=== PATIENT | female | born 2005 ===

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

== ENCOUNTER 2023-01-23 11:37 | Outpatient (AMB) | payer OTHER, SELFPAY ==
--- OUTSIDE RECORDS SUMMARY | 2023-01-23 11:38 | XMS_ITS | Continuity of Care Document ---
Author Name Unknown Organization [facility] Address [address] [place] [id number] Care Team Providers Care Tape Edge Machine Operator Name Role Phone Not on Staff, PCP Primary Care Physician Unavail able Encounter [facility] Date(s): 12/03/22 - 01/02/23 [facility] [address] [place] [id number]- Patient Care team information Care Team Personnel Name: Not on Staff, PCP Position: [facility] Physician (General Medicine) Member Role: PCP Care Team Related Persons Name: COOK FRANK MCGARRY Address: home [address] [place] [address]
[2023-01-23 11:45] VITALS: BP 104/62; BMI 26.6
--- NOTE | 2023-01-23 11:45 | A.OFFVISPN_ITS ---
Intake Vital Signs 01/23/23 11:45 Height 5 ft 3 in Weight 150 lb BMI 26.6 BP 104/62 Intake Visit Reasons: ROMMEL/ok per MA Intake Note: The patient agreed to use of a medical director of hospice during this encounter. Scribed for ROBERT Wilson by Sarah Odonnell medical director of hospice, on 01/23/2023 at 11:52 am EST. Modern Languages Professor Required: No Information Interpreted: non-clinical & clinical Corporate Law Assistant: Corporate Law Assistant Present (Val) Allergies penicillin V Allergy (Unknown, Verified 01/23/23 11:46) Hives Penicillins [PENICILLINS] Allergy (Unknown, Verified 01/23/23 11:46) ANAPHYLAXIS Is last menstrual period known: Yes Last menstrual period: 05/24/22 Post menopausal: No Patient : Yes PFSH Medical History COVID-19 Encounter for supervision of normal in third trimester Encounter for supervision of other normal in second trimester Surgical History No pertinent past surgical history Family History Mother No problems noted. Father No problems noted. 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 Current occupational exposures/hazards: No Female Reproductive History Menstrual Age of Menarche: 11 Duration of menses: 3-5 days Date of last menstrual period: 05/24/22 control method: none Total pregnancies: 1 History History 1 Elective abortions 0 Para 0 Spontaneous abortions 0 Hx # Term Pregnancies 0 Ectopic pregnancies 0 Hx # Pregnancies 0 Multiple births 0 Questionnaire History History : 1 [place] Depression [place] Depression Scale I have been able to laugh and see the funny side of things: As much as I always could I have looked forward with enjoyment to things: As much as I ever did I have blamed myself unnecessarily when things went wrong: Not very often I have been anxious or worried for no reason: Yes, very often I have felt scared of panicky for no very good reason at all: Yes, sometimes Things have been getting on top of me: No, most of the time I have coped quite well I have been so unhappy that I have had difficulty sleeping: Not very often I have felt sad or miserable: Not very often I have been so unhappy that I have been crying: No, never The thought of harming myself has occurred to me: Never 9 PHQ Assessment Billing PHQ Assessment Tool: PHQ Assessment [id number] Visit NAYELI Calculator Estimated Delivery Date Method Current WG Current Estimate 02/17/23 Ultrasound #1 36w 3d Other Estimates 02/07/23 LMP (Uncertain) 37w 6d 02/11/23 Ultrasound #2 37w 2d Expected Delivery Route/Plan Specific Issues/Plans G 1 P EDC: 02/17/23 Problem List: Teen . FH DM: H/o subchorionic bleed nausea-B6 and Unisom, counseled re: small freq. meals and fluid intake EPDS=11, no #11, 28wk=11 28w cbc- 10.9/32.7-rx iron Varicella non immune-consider pp vaccination. NT: nl First trimester screen: FAS: nl scan, marginal cord insertion. Plan: US 3rd trimester-growth follow up WIC: enrolled CBE:advised Vaccination status: COVID: 2 boosters Tdap: given 12/27/22 Flu: pt. informed/declined-pt. reports mom did not want her to have this Social hx: FOB-Pb. Lives with mom, and 4 siblings. 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 Labor support: FOB plan: control: OB Visit Log Initial Weight: Not Recorded Date -?-?-?-?-?-?-?-?-?-?-?-?- EGA Weight Gest Week Fundal Ht Present FHR move Efface % Edema BP PrePreg We Weight GTT -?-?-?-?-?-?-?-?-?-?-?-?- Glucose LV Protein Blood Type 07/26/22 -?-?-?-?-?-?-?-?-?-?-?-?- 10w 4d 127 lb 127 lb -?-?-?-?-?-?-?-?-?-?-?-?- 08/01/22 -?-?-?-?-?-?-?-?-?-?-?-?- 11w 3d 126 lb 11 160 active 92/58 126 lb -?-?-?-?-?--?-?-?-?-?-?-?- 08/23/22 -?-?-?-?-?-?-?-?-?-?-?-?- 14w 4d 125 lb 14 150 106/68 125 lb -?-?-?-?-?-?-?-?-?-?-?-?- 09/24/22 -?-?-?-?-?-?-?-?-?-?-?-?- 19w 1d 130 lb 19 150 active 98/54 130 lb -?-?-?-?-?-?-?-?-?-?-?-?- 10/29/22 -?-?-?-?-?-?-?-?-?-?-?-?- 24w 1d 137 lb 25 150 active 90/60 137 lb -?-?-?-?-?-?-?-?-?-?-?-?- 11/26/22 -?-?-?-?-?-?--?-?-?-?-?-?- 28w 1d 140 lb 26.5 150 active 100/ 54 140 lb -?-?-?-?-?-?-?-?-?-?-?-?- 12/12/22 -?-?-?-?-?-?-?-?-?-?-?-?- 30w 3d 141 lb 31 150 active 100/62 141 lb -?-?-?-?-?-?-?-?-?-?-?-?- 12/27/22 -?-?-?-?-?-?-?-?-?-?-?-?- 32w 4d 142 lb 31 140 active 104/68 142 lb -?-?-?-?-?-?-?-?-?-?-?-?- 01/23/23 -?-?-?-?-?-?-?-?-?-?-?-?- 36w 3d 150 lb 32 140 active 104/62 150 lb -?-?-?-?-?-?-?-?-?-?-?-?- Notes Visit Date: 01/23/23 Last Updated by: Ella Sagastume CNM Note author: Ella Sagastume CNM/Sarah Odonnell medical director of hospice 36.3 wk ROMMEL. Feeling well. Taking PNV. Hydrating well and good appetite Good FM, no LOF, VB or abd pain. Prepped at home for baby. Plans to breast feed. Not interested in an epidural. She prefers a natural , may consider something IV. Undecided re: BC pp, reviewed options today-will consider. Advised to pick a Pedi soon, options available. EPDS= 9, she has not seen a therapist, but has support at home. She prefers not to talk about things. Offered/encouraged referral for counseling- declines today. CRISIS information given. SFD, OB growth check at [facility]. GBS, GC/CT panel done today. cx appears LTC. Await results and treat accordingly. Discussed: PTL - LOF, VB, abd pain . Advised to eat small frequent meals and stay cool and hydrated. PEC - headaches: not resolved with 2 regular strength Tylenol doses, visual disturbances warnings and when to call for further evaluation. Reviewed when to call for any VB, LOF, contractions, Kick counts reviewed and when to call for any decreased FM. Encouraged patient to sign up for patient portal. Discussed to call the service here for any emergencies/deliveries to be directed to [facility]. RTO 1 wk/prn. Visit Date: 12/27/22 Last Updated by: Ella Sagastume CNM Note author: Ella Sagastume CNM/Sarah Odonnell medical director of hospice 32.4 wk ROMMEL. Feeling well. Taking PNV. Hydrating well and good appetite Good FM, no LOF, VB or abd pain. She is here with her partner Pb. Informed she started a new job at [employer]. Discussed: PTL - LOF, VB, abd pain . Tdap today Prepping at home for the baby. PEC - headaches: not resolved, visual disturbances warnings and when to call for further evaluation to check for pre-eclampsia. Reviewed when to call for any VB, LOF, contractions, Kick counts reviewed and when to call for any decreased FM. Discussed to call the service here for any emergencies/deliveries to be directed to [facility]. RTO 2 wks. Visit Date: 12/12/22 Last Updated by: Ella Sagastume CNM Note author: Ella Sagastume CNM/Sarah Odonnell medical director of hospice 30.3wk ROMMEL. Feeling well. Taking PNV. Hydrating well and good appetite Good FM, no LOF, VB or abd pain. Reports she has not been taking Iron pill because it was not making her feel well. Discussed: PTL - LOF, VB, abd pain . US measurements and diagnostics, repeat if indicated. Recommended taking PNV one hr. after food, then iron later separate timeframe. Advised to eat healthy including small frequent meals every 2 hrs and stay hydrated in hot weather. PEC - headaches: not resolved with 2 regular strength Tylenol doses, visual disturbances warnings and when to call for further evaluation. Reviewed when to call for any VB, LOF, contractions, Kick counts reviewed and when to call for any decreased FM. Encouraged patient to sign up for patient portal. Discussed to call the service here for any emergencies/deliveries to be directed to [facility]. Consider Tdap, defers until next visit. Handout given. RTO 2 wks Visit Date: 11/26/22 Last Updated by: Ella Sagastume CNM Note author: Ella Sagastume CNM/Sarah Odonnell medical director of hospice 28.1k ROMMEL. Feeling well. Taking PNV and iron. Hydrating well and good appetite Good FM, no LOF, VB or abd pain. Partner in for the visit today. Reports she is supposed to have a meeting with [facility] and her counselor sent an email recently, but missed her appt. time, she has decided to stay with delivery at [facility]. EPDS=11, no on #10, offered ref: for counseling, will possibly consider. Discussed: PTL - LOF, VB, abd pain Advised to eat healthy including small frequent meals every 2 hrs and stay hydrated in hot weather. Lab results; anemia. Varicella non immune- consider vaccine pp. US follow up for growth ordered. PEC - headaches: not resolved with 2 regular strength Tylenol doses, visual disturbances warnings and when to call for further evaluation. Reviewed when to call for any VB, LOF, contractions, Kick counts reviewed and when to call for any decreased FM. Encouraged patient to sign up for patient portal. Discussed to call the service here for any emergencies/deliveries to be directed to [facility]. Consider plans and control options. RTO 2 wks. Visit Date: 10/29/22 Last Updated by: Ella Sagastume CNM Note author: Ella Sagastume CNM/Sarah Odonnell medical director of hospice 24.1wk ROMMEL. Feeling well. Taking PNV. Good FM, no LOF, VB or abd pain. She is doing well with no complaints. She is interested in possibly transferring / care for more options such as a birthing center. She is agreeable to do labs soon. Discussed: PTL - LOF, VB, abd pain, regular contractions. Advised to research [facility] for home options. Encouraged patient to sign up for patient portal. PEC - headaches: not resolved with 2 regular strength Tylenol doses, visual disturbances warnings and when to call for further evaluation. Reviewed when to call for any VB, LOF, contractions, Kick counts reviewed and when to call for any decreased FM. Discussed to call the service here for any emergencies/deliveries to be directed to [facility]. Visit Date: 09/24/22 Last Updated by: Ella Sagastume CNM Note author: Ella Sagastume CNM/Sarah Odonnell medical director of hospice 19.1wk ROMMEL. Feeling well. Taking PNV. Good FM, no LOF, VB. No PN labs done, has transportation issues, mom helping with rides. Has WIC. Seen in the ED 09/20/22 for lightheadedness and feeling weak. Discussed: PTL - LOF, VB, abd pain, Advised to do labs today and schedule US. Concerned re: weight gain, low appetite at times. Track meal and food intake. Maintain healthy diet and stay hydrates with water. PEC - headaches: not resolved with 2 regular strength Tylenol doses, visual disturbances warnings and when to call for further evaluation. Discussed to call the service here for any emergencies/deliveries to be directed to [facility]. Reviewed when to call for any emergent care. RTO 4wks, FAS ordered Agree's to have labs done today. Visit Date: 08/23/22 Last Updated by: Ella Sagastume CNM Note author: Ella Sagastume CNM/Juany Dempsey medical director of hospice 14.4 wk ROMMEL. Taking PNV. Good FM. Denies LOF, VB or abd pain. Doing well with no concerns. Does not have a good appetite due to nausea. Has not picked up her Unisom and Vitamin B6. She stays well hydrated. She has done her First screen labs, records not available yet. Has not done first trimester labs. Her partner, Pb, and mom were present for FHR. Discussed: VB warnings and when to call for further evaluation. PEC - headaches: not resolved with 2 regular strength Tylenol doses, visual disturbances warnings and when to call for further evaluation.? Staying well hydrated, drink 8-10 glasses of water per day. Encouraged to picker / packer Unisom and Vitamin B6 to help prevent nausea. Agrees to do labs tomorrow. RTO in 4 weeks. Visit Date: 08/01/22 Last Updated by: Ella Sagastume CNM The patient agreed to use of a medical director of hospice during this encounter. Scribed for ROBERT Wilson by Sarah Odonnell medical director of hospice, on at 00:00 am EST. 11.3 wk OB. Taking PNV, BASA qd. Good FM. Denies LOF, VB or abd pain. Good appetite and stays well hydrated. States her nausea is off and on. Denies vaginal itching and irritation. Discussed: PTL-LOF, VB, abd pain, ctx and when to call for further evaluation. Advised to withhold from intimacy momentarily, report any VB B6 vits TID for nausea and Unisom prn Encouraged to contact office if she has any concerns about depression. Advised to obtain her PN labs this week Staying well hydrated, drink 8-10 glasses of water per day. She is agreeable to delivering at [facility]. Will have further discussion at next visit. 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 LMP was last week of April. US 06/25/22 at 6w1d with NAYELI 02/17/23. She had additional US 07/23/22 at 11w0d with NAYELI 02/11/23. She has h/o subchorionic bleed, nausea and fatigue. She was prescribed B6/Unisom but has not picked up from pharmacy yet. Pt has FH of diabetes and early glucose was added to her labs. Pt was advised no sweets or carbs beginning at 2000, night before she plans to have labs done and the same for her breakfast. Will schedule NT US and 1st trimester screen at [facility]. Pt has allergy to PCN. She had Covid 06/2021 and has been vaccinated x2, no boosters. Pt BMI today is 22.4. She does not know how much she weighed before he r and does not know if she has lost or gained weight. Pt was given the folder. We discussed danger signs, pelvic pain especially if unilateral and may be associated with shoulder pain and/or vaginal bleeding. She understands to call if she has either symptom. Pt was advised 24/7 MD coverage and how to reach MD after hours/weekends/holidays. She is aware that delivery will take place at [facility] as well as some testing and where she is to go. We reviewed first trimester education. Pt will schedule OB PE today, labs were ordered. Pt was accompanied by her Mom and her partner, Pb. Of note: we did not discuss domestic violence questions. Pt verbalizes understanding and agrees with plan. No further questions. Assessment & Plan Assessment & Plan (1) Encounter for supervision of normal in third trimester: Code(s): Z34.93 - Encounter for supervision of normal , unspecified, third trimester Category: Medical (2) Small for dates affecting management of mother: Code(s): O36.5990 - Maternal care for other known or suspected poor growth, unspecified trimester, not applicable or unspecified Orders: Orders CT NG by PCR Today Z34.93 - Encounter for supervision of normal , unspecified, third trimester Group B Strep PCR Today Z34.93 - Encounter for supervision of normal , unspecified, third trimester OB follow up Today O36.5296 - Maternal care for other known or suspected poor growth, unspecified trimester, not applicable or unspecified Coding Level of Care Code [place] Diagnoses Encounter for supervision of normal in third trimester Z34.93 Small for dates affecting management of mother O36.3278
== END 2023-01-23 12:14 | disposition home or self-care (01) ==
LOC: HO.HWSW 11:37
PROVIDERS: Visit Provider Advanced Practice Midwife
DX: O36.5990 Maternal care for other known or suspected poor fetal growth, unspecified trimester, not applicable or unspecified (principal)
CPT/HCPCS: 25942; S3005

== ENCOUNTER 2023-01-23 11:37 | Outpatient (REF) | payer OTHER, SELFPAY ==
[2023-01-23 17:59] LABS: CT PCR NOT DETECTED (Not Detect.); NG PCR NOT DETECTED (Not Detect.)
[2023-01-24 10:35] LABS: Allergic to Penicillin? Yes
== END 2023-01-23 11:38 | disposition home or self-care (01) ==
LOC: HO.LNP 11:37
PROVIDERS: Visit Provider Advanced Practice Midwife
DX: O36.5930 Maternal care for other known or suspected poor fetal growth, third trimester, not applicable or unspecified (principal); Z3A.36 36 weeks gestation of pregnancy
CPT/HCPCS: 0353U; 87150; 99212

== ENCOUNTER 2023-01-30 13:16 | Outpatient (AMB) | payer OTHER, SELFPAY ==
--- NOTE | 2023-01-30 13:20 | A.OFFVISPN_ITS ---
Intake Vital Signs 01/30/23 13:21 Height 5 ft 3 in Weight 149 lb BMI 26.4 BP 110/60 Intake Visit Reasons: ROMMEL Intake Note: The patient agreed to use of a medical office secretary during this encounter. Scribed for ROBERT Wilson by Sarah Odonnell medical office secretary, on 01/30/2023 at 1:28 pm EST. Accompanied by: Spouse Allergies penicillin V Allergy (Unknown, Verified 01/30/23 13:20) Hives Penicillins [PENICILLINS] Allergy (Unknown, Verified 01/30/23 13:20) ANAPHYLAXIS Patient : Yes [facility] Medical History (Updated 01/30/23 @ 13:59 by Ella Sagastume CNM) COVID-19 Encounter for supervision of normal in third trimester Surgical History No pertinent past surgical history Family History Mother No problems noted. Father No problems noted. 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 FH DM: H/o subchorionic bleed nausea-B6 and Unisom, counseled re: small freq. meals and fluid intake EPDS=11, no #11, 28wk=11 28w cbc- 10.9/32.7-rx iron Varicella non immune-consider pp vaccination. NT: nl First trimester screen: FAS: nl scan, marginal cord insertion. Plan: US 3rd trimester-growth follow up WIC: enrolled CBE:advised Vaccination status: COVID: 2 boosters Tdap: given 12/27/22 Flu: pt. informed/declined-pt. reports mom did not want her to have this Social hx: FOB-Pb. Lives with mom, and 4 siblings. 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 Labor support: FOB plan: control: Note author: Ella Sagastume CNM/Sarah salazar scribe RTO in a week. OB Visit Log Initial Weight: 120 lb Date -?-?-?-?-?-?-?-?-?-?-?-?- EGA Weight Gest Week Fundal Ht Present FHR move Efface % Edema BP PrePreg We Weight GTT -?-?-?-?-?-?-?-?-?-?-?-?- Glucose LV Protein Blood Type 07/26/22 -?-?-?-?-?-?-?-?-?-?-?-?- 10w 4d 127 lb (+7 lb) 127 lb -?-?-?-?-?-?-?-?-?-?-?-?- 08/01/22 -?-?-?-?-?-?-?-?-?-?-?-?- 11w 3d 126 lb (+6 lb) 11 160 active 92/58 126 lb -?-?-?-?-?-?-?-?-?-?-?-?- 08/23/22 -?-?-?-?-?-?-?-?-?-?-?-?- 14w 4d 125 lb (+5 lb) 14 150 106/68 125 lb -?-?-?-?-?-?-?-?-?-?-?-?- 09/24/22 -?-?-?-?-?-?-?-?-?-?-?-?- 19w 1d 130 lb (+10 lb) 19 150 active 98/54 1 30 lb -?-?-?-?-?-?-?-?-?-?-?-?- 10/29/22 -?-?-?-?-?-?-?-?-?-?-?-?- 24w 1d 137 lb (+17 lb) 25 150 active 90/60 1 37 lb -?-?-?-?-?-?-?-?-?-?-?-?- 11/26/22 -?-?-?-?-?-?-?-?-?-?-?-?- 28w 1d 140 lb (+20 lb) 26.5 150 active 100/54 140 lb -?-?-?-?-?-?-?-?-?-?-?-?- 12/12/22 -?-?-?-?-?-?-?-?-?-?-?-?- 30w 3d 141 lb (+21 lb) 31 150 active 100/62 141 lb -?-?-?-?-?-?-?-?-?-?-?-?- 12/27/22 -?-?-?-?-?-?-?-?-?-?-?-?- 32w 4d 142 lb (+22 lb) 31 140 active 104/68 142 lb -?-?-?-?-?-?-?-?-?-?-?-?- 01/23/23 -?-?-?-?-?-?-?-?-?-?-?-?- 36w 3d 150 lb (+30 lb) 32 140 active 104/62 150 lb -?-?-?-?-?-?-?-?-?-?-?-?- 01/30/23 -?-?-?-?-?-?-?-?-?-?-?-?- 37w 3d 149 lb (+29 lb) 32 140 active 110/60 149 lb -?-?-?-?-?-?-?-?-?-?-?-?- Notes Visit Date: 01/30/23 Last Updated by: Ella Sagastume CNM 37.3 wk ROMMEL. Feeling well. Taking PNV. Hydrating well and good appetite Good FM, no LOF, VB or abd pain. Partner is present during visit. US for growth check not booked yet, plan staff to call and check on the status of appt. Reports having [place] Fernandez. Discussed: PTL - LOF, VB, abd pain . GBS- Negative-chart copy sent to [facility] today. Informed Pawel Fernandez symptoms. If delivers baby, contact office to schedule PPV. Advised to eat small frequent meals and stay cool and hydrated. PEC - headaches: not resolved with 2 regular strength Tylenol doses, visual disturbances warnings and when to call for further evaluation. Reviewed when to call for any VB, LOF, contractions, Kick counts reviewed and when to call for any decreased FM. Encouraged patient to sign up for patient portal. Discussed to call the service here for any emergencies/deliveries to be directed to [facility]. Visit Date: 01/23/23 Last Updated by: Ella Sagastume CNM Note author: Ella Sagastume CNM/Sarah Odonnell medical office secretary 36.3 wk ROMMEL. Feeling well. Taking PNV. Hydrating well and good appetite Good FM, no LOF, VB or abd pain. Prepped at home for baby. Plans to breast feed. Not interested in an epidural. She prefers a natural , may consider something IV. Undecided re: BC pp, reviewed options today-will consider. Advised to pick a Pedi soon, options available. EPDS= 9, she has not seen a therapist, but has support at home. She prefers not to talk about things. Offered/encouraged referral for counseling- declines today. CRISIS information given. SFD, OB growth check at [facility]. GBS, GC/CT panel done today. cx appears LTC. Await results and treat accordingly. Discussed: PTL - LOF, VB, abd pain . Advised to eat small frequent meals and stay cool and hydrated. PEC - headaches: not resolved with 2 regular strength Tylenol doses, visual disturbances warnings and when to call for further evaluation. Reviewed when to call for any VB, LOF, contractions, Kick counts reviewed and when to call for any decreased FM. Encouraged patient to sign up for patient portal. Discussed to call the service here for any emergencies/deliveries to be directed to [facility]. RTO 1 wk/prn. Visit Date: 12/27/22 Last Updated by: Ella Sagastume CNM Note author: Ella Sagastume CNM/Sarah Odonnell medical office secretary 32.4 wk ROMMEL. Feeling well. Taking PNV. Hydrating well and good appetite Good FM, no LOF, VB or abd pain. She is here with her partner Pb. Informed she started a new job at [employer]. Discussed: PTL - LOF, VB, abd pain . Tdap today Prepping at home for the baby. PEC - headaches: not resolved, visual disturbances warnings and when to call for further evaluation to check for pre-eclampsia. Reviewed when to call for any VB, LOF, contractions, Kick counts reviewed and when to call for any decreased FM. Discussed to call the service here for any emergencies/deliveries to be directed to [facility]. RTO 2 wks. Visit Date: 12/12/22 Last Updated by: Ella Sagastume CNM Note author: Ella Sagastume CNM/Sarah Odonnell medical office secretary 30.3wk ROMMEL. Feeling well. Taking PNV. Hydrating well and good appetite Good FM, no LOF, VB or abd pain. Reports she has not been taking Iron pill because it was not making her feel well. Discussed: PTL - LOF, VB, abd pain . US measurements and diagnostics, repeat if indicated. Recommended taking PNV one hr. after food, then iron later separate timeframe. Advised to eat healthy including small frequent meals every 2 hrs and stay hydrated in hot weather. PEC - headaches: not resolved with 2 regular strength Tylenol doses, visual disturbances warnings and when to call for further evaluation. Reviewed when to call for any VB, LOF, contractions, Kick counts reviewed and when to call for any decreased FM. Encouraged patient to sign up for patient portal. Discussed to call the service here for any emergencies/deliveries to be directed to [facility]. Consider Tdap, defers until next visit. Handout given. RTO 2 wks Visit Date: 11/26/22 Last Updated by: Ella Sagastume CNM Note author: Ella Sagastume CNM/Sarah Odonnell medical office secretary 28.1k ROMMEL. Feeling well. Taking PNV and iron. Hydrating well and good appetite Good FM, no LOF, VB or abd pain. Partner in for the visit today. Reports she is supposed to have a meeting with [facility] and her counselor sent an email recently, but missed her appt. time, she has decided to stay with delivery at [facility]. EPDS=11, no on #10, offered ref: for counseling, will possibly consider. Discussed: PTL - LOF, VB, abd pain Advised to eat healthy including small frequent meals every 2 hrs and stay hydrated in hot weather. Lab results; anemia. Varicella non immune- consider vaccine pp. US follow up for growth ordered. PEC - headaches: not resolved with 2 regular strength Tylenol doses, visual disturbances warnings and when to call for further evaluation. Reviewed when to call for any VB, LOF, contractions, Kick counts reviewed and when to call for any decreased FM. Encouraged patient to sign up for patient portal. Discussed to call the service here for any emergencies/deliveries to be directed to [facility]. Consider plans and control options. RTO 2 wks. Visit Date: 10/29/22 Last Updated by: Ella Sagastume CNM Note author: Ella Sagastume CNM/Sarah Odonnell medical office secretary 24.1wk ROMMEL. Feeling well. Taking PNV. Good FM, no LOF, VB or abd pain. She is doing well with no complaints. She is interested in possibly transferring / care for more options such as a birthing center. She is agreeable to do labs soon. Discussed: PTL - LOF, VB, abd pain, regular contractions. Advised to research [facility] for home options. Encouraged patient to sign up for patient portal. PEC - headaches: not resolved with 2 regular strength Tylenol doses, visual disturbances warnings and when to call for further evaluation. Reviewed when to call for any VB, LOF, contractions, Kick counts reviewed and when to call for any decreased FM. Discussed to call the service here for any emergencies/deliveries to be directed to [facility]. Visit Date: 09/24/22 Last Updated by: Ella Sagastume CNM Note author: Ella Sagastume CNM/Sarah Odonnell medical office secretary 19.1wk ROMMEL. Feeling well. Taking PNV. Good FM, no LOF, VB. No PN labs done, has transportation issues, mom helping with rides. Has WIC. Seen in the ED 09/20/22 for lightheadedness and feeling weak. Discussed: PTL - LOF, VB, abd pain, Advised to do labs today and schedule US. Concerned re: weight gain, low appetite at times. Track meal and food intake. Maintain healthy diet and stay hydrates with water. PEC - headaches: not resolved with 2 regular strength Tylenol doses, visual disturbances warnings and when to call for further evaluation. Discussed to call the service here for any emergencies/deliveries to be directed to [facility]. Reviewed when to call for any emergent care. RTO 4wks, FAS ordered Agree's to have labs done today. Visit Date: 08/23/22 Last Updated by: Ella Sagastume CNM Note author: Ella Sagastume CNM/Juany Dempsey medical office secretary 14.4 wk ROMMEL. Taking PNV. Good FM. Denies LOF, VB or abd pain. Doing well with no concerns. Does not have a good appetite due to nausea. Has not picked up her Unisom and Vitamin B6. She stays well hydrated. She has done her First screen labs, records not available yet. Has not done first trimester labs. Her partner, Pb, and mom were present for FHR. Discussed: VB warnings and when to call for further evaluation. PEC - headaches: not resolved with 2 regular strength Tylenol doses, visual disturbances warnings and when to call for further evaluation.? Staying well hydrated, drink 8-10 glasses of water per day. 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 Agrees to do labs tomorrow. RTO in 4 weeks. Visit Date: 08/01/22 Last Updated by: Ella Sagastume CNM The patient agreed to use of a medical office secretary during this encounter. Scribed for ROBERT Wilson by Sarah Odonnell medical office secretary, on at 00:00 am EST. 11.3 wk OB. Taking PNV, BASA qd. Good FM. Denies LOF, VB or abd pain. Good appetite and stays well hydrated. States her nausea is off and on. Denies vaginal itching and irritation. Discussed: PTL-LOF, VB, abd pain, ctx and when to call for further evaluation. Advised to withhold from intimacy momentarily, report any VB B6 vits TID for nausea and Unisom prn Encouraged to contact office if she has any concerns about depression. Advised to obtain her PN labs this week Staying well hydrated, drink 8-10 glasses of water per day. She is agreeable to delivering at [facility]. Will have further discussion at next visit. 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 LMP was last week of April. US 06/25/22 at 6w1d with NAYELI 02/17/23. She had additional US 07/23/22 at 11w0d with NAYELI 02/11/23. She has h/o subchorionic bleed, nausea and fatigue. She was prescribed B6/Unisom but has not picked up from pharmacy yet. Pt has FH of diabetes and early glucose was added to her labs. Pt was advised no sweets or carbs beginning at 1999, night before she plans to have labs done and the same for her breakfast. Will schedule NT US and 1st trimester screen at [facility]. Pt has allergy to PCN. She had Covid 06/2021 and has been vaccinated x2, no boosters. Pt BMI today is 22.4. She does not know how much she weighed before her and does not know if she has lost or gained weight. Pt was given the folder. We discussed danger signs, pelvic pain especially if unilateral and may be associated with shoulder pain and/or vaginal bleeding. She understands to call if she has either symptom. Pt was advised 24/7 MD coverage and how to reach MD after hours/weekends/holidays. She is aware that delivery will take place at [facility] as well as some testing and where she is to go. We reviewed first trimester education. Pt will schedule OB PE today, labs were ordered. Pt was accompanied by her Mom and her partner, Pb. Of note: we did not discuss domestic violence questions. Pt verbalizes understanding and agrees with plan. No further questions. Results AMB Urinalysis, Automated UA Leukoctes 1 Husam/uL Last Edit by Vanessa Yanes [facility] on 01/30/23 13:52 UA Nitrite Negative Last Edit by Vanessa Yanes [facility] on 01/30/23 13:52 UA Urobilinogen 0 mg/dL Last Edit by Vanessa Yanes [facility] on 01/30/23 13:5 2 UA Protein 0 mg/dL Last Edit by Vanessa Yanes [facility] on 01/30/23 13:52 UA pH 6.5 Last Edit by Vanessa Yanes [facility] on 01/30/23 13:52 UA Blood 0 George/uL Last Edit by Vanessa Yanes [facility] on 01/30/23 13:52 UA Specific [place] 1.010 Last Edit by Vanessa Yanes [facility] on 01/30/23 13:52 UA Ketone Negative Last Edit by Vanessa Yanes [facility] on 01/30/23 13:52 UA Bilirubin 0 mg/dL Last Edit by Vanessa Yanes [facility] on 01/30/23 13:52 UA Glucose 0 mg/dL Last Edit by Vanessa Yanes [facility] on 01/30/23 13:52 Results Reviewed Results Reviewed: Laboratory Last Values Urine pH (Auto) 6.5 01/30/23 13:50 Specific [place] (Auto) 1.010 01/30/23 13:50 Urine Protein (Auto) 0 mg/dL 01/30/23 13:50 Glucose (UA)(Auto) 0 mg/dL 01/30/23 13:50 Urine Ketones (Auto) Negative 01/30/23 13:50 Urine Blood (Auto) 0 George/uL 01/30/23 13:50 Urine Nitrite (Auto) Negative 01/30/23 13:50 Urine Bilirubin (Auto) 0 mg/dL 01/30/23 13:50 Urine Urobilinogen (Auto) 0 mg/dL 01/30/23 13:50 Leukocyte Esterase (Auto) 1 Husam/uL 01/30/23 13:50 Assessment & Plan Assessment & Plan (1) Encounter for supervision of normal in third trimester: Code(s): Z34.93 - Encounter for supervision of normal , unspecified, third trimester Category: Medical Orders: Orders AMB Urinalysis Automated Today Z34.93 - Encounter for supervision of normal , unspecified, third trimester Coding Level of Care Code [place] Diagnoses Encounter for supervision of normal in third trimester Z34.93
[2023-01-30 13:21] VITALS: BP 110/60; BMI 26.4
== END 2023-01-30 13:47 | disposition home or self-care (01) ==
LOC: HO.HWS 13:16
PROVIDERS: Visit Provider Advanced Practice Midwife
DX: Z34.93 Encounter for supervision of normal pregnancy, unspecified, third trimester (principal)
CPT/HCPCS: 25942

== ENCOUNTER → 2023-01-30 13:16 | Outpatient (BNVA) | payer OTHER, SELFPAY | PROVIDERS: Visit Provider Advanced Practice Midwife | DX: O21.0 Mild hyperemesis gravidarum (principal); O47.1 False labor at or after 37 completed weeks of gestation; O45.8X3 Other premature separation of placenta, third trimester; Z3A.37 37 weeks gestation of pregnancy | CPT/HCPCS: 81003; 99212 ==

== ENCOUNTER 2023-02-05 13:58 | Outpatient (AMB) | payer OTHER, SELFPAY ==
[2023-02-05 14:18] VITALS: BP 100/64; BMI 26.4
--- NOTE | 2023-02-05 14:18 | A.OFFVISPN_ITS ---
Intake Vital Signs 02/05/23 14:18 Height 5 ft 3 in Weight 149 lb BMI 26.4 BP 100/64 Intake Visit Reasons: ROMMEL Intake Note: The patient agreed to use of a medical secretary receptionist during this encounter. Scribed for ROBERT Wilson by Sarah Odonnell medical secretary receptionist, on 02/05/2023 at 2:49 pm EST. Allergies penicillin V Allergy (Unknown, Verified 02/05/23 14:23) Hives Penicillins [PENICILLINS] Allergy (Unknown, Verified 02/05/23 14:23) ANAPHYLAXIS Patient : Yes [facility] Medical History (Updated 01/30/23 @ 13:59 by Ella Sagastume CNM) COVID-19 Encounter for supervision of normal in third trimester Surgical History No pertinent past surgical history Family History Mother No problems noted. Father No problems noted. 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 FH DM: H/o subchorionic bleed nausea-B6 and Unisom, counseled re: small freq. meals and fluid intake EPDS=11, no #11, 28wk=11 28w cbc- 10.9/32.7-rx iron Varicella non immune-consider pp vaccination. NT: nl First trimester screen: FAS: nl scan, marginal cord insertion. 3rd trimester US 20% growth, repeat study on 02/10/23... WIC: enrolled CBE:advised Vaccination status: COVID: 2 boosters Tdap: given 12/27/22 Flu: pt. informed/declined-pt. reports mom did not want her to have this Social hx: FOB-Pb. Lives with mom, and 4 siblings. 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 Labor support: FOB plan: control: OB Visit Log Initial Weight: 120 lb Date -?-?-?-?-?-?-?-?-?-?-?-?- EGA Weight Gest Week Fundal Ht Present FHR move Efface % Edema BP PrePreg We Weight GTT -?-?-?-?-?-?-?-?-?-?-?-?- Glucose LV Protein Blood Type 07/26/22 -?-?-?-?-?-?-?-?-?-?--?-?- 10w 4d 127 lb (+7 lb) 127 lb -?-?-?-?-?-?-?-?-?-?-?-?- 08/01/22 -?-?-?-?-?-?-?-?-?-?-?-?- 11w 3d 126 lb (+6 lb) 11 160 active 92/58 126 lb -?-?-?-?-?-?-?-?-?-?-?-?- 08/23/22 -?-?-?-?-?-?-?-?-?-?-?--?- 14w 4d 125 lb (+5 lb) 14 150 106/68 125 lb -?-?-?-?-?-?-?-?-?-?-?-?- 09/24/22 -?-?-?-?-?-?-?--?-?-?-?-?- 19w 1d 130 lb (+10 lb) 19 150 active 98/54 1 30 lb -?-?-?-?-?-?-?-?-?-?-?-?- 10/29/22 -?-?-?-?-?-?-?-?-?-?-?-?- 24w 1d 137 lb (+17 lb) 25 150 active 90/60 1 37 lb -?-?-?-?-?-?-?-?-?-?-?-?- 11/26/22 -?-?-?-?-?-?-?-?-?-?-?-?- 28w 1d 140 lb (+20 lb) 26.5 150 active 100/54 140 lb -?-?-?-?-?-?-?-?-?-?--?-?- 12/12/22 -?-?-?-?-?-?-?-?-?-?-?-?- 30w 3d 141 lb (+21 lb) 31 150 active 100/62 141 lb -?-?-?-?-?-?-?-?-?-?-?-?- 12/27/22 -?-?-?-?-?-?-?-?-?-?-?-?- 32w 4d 142 lb (+22 lb) 31 140 active 104/68 142 lb -?-?-?-?-?-?-?-?-?-?-?-?- 01/23/23 -?-?-?-?-?-?-?-?-?-?-?-?- 36w 3d 150 lb (+30 lb) 32 140 active 104/62 150 lb -?-?-?-?-?-?-?-?-?-?-?-?- 01/30/23 -?-?-?-?-?-?-?-?-?-?-?-?- 37w 3d 149 lb (+29 lb) 32 140 active 110/60 149 lb -?-?-?-?-?-?-?-?-?-?-?-?- 02/05/23 -?-?-?-?-?-?-?-?-?-?-?-?- 38w 2d 149 lb (+29 lb) 34 140 active 100/64 149 lb -?-?-?-?-?-?-?-?-?-?-?-?- Notes Visit Date: 02/05/23 Last Updated by: Ella Sagastume CNM Note author: Ella Sagastume CNM/Sarah Blas medical secretary receptionist 38.2 wk ROMMEL. Feeling well. Taking PNV. Hydrating well and good appetite Good FM, no LOF, VB or abd pain. She is here today with her Partner She has no concerns or complaints. Prepped for baby, dscussed packing for the hospital. Discussed: PTL - LOF, VB, abd pain . Advised to eat small frequent meals and stay cool and hydrated. PEC - headaches: not resolved with 2 regular strength Tylenol doses, visual disturbances warnings and when to call for further evaluation. Reviewed when to call for any VB, LOF, contractions, Kick counts reviewed and when to call for any decreased FM. Encouraged patient to sign up for patient portal. Discussed to call the service here for any emergencies/deliveries to be directed to [facility]. US is booked 02/10/23 for growth check. RTO in 1 week. Visit Date: 01/30/23 Last Updated by: Ella Sagastume CNM 37.3 wk ROMMEL. Feeling well. Taking PNV. Hydrating well and good appetite Good FM, no LOF, VB or abd pain. Partner is present during visit. US for growth check not booked yet, plan staff to call and check on the status of appt. Reports having [place] Fern[place]. Discussed: PTL - LOF, VB, abd pain . GBS- Negative-chart copy sent to [facility] today. Informed Pawel Fernandez symptoms. If delivers baby, contact office to schedule PPV. Advised to eat small frequent meals and stay cool and hydrated. PEC - headaches: not resolved with 2 regular strength Tylenol doses, visual disturbances warnings and when to call for further evaluation. Reviewed when to call for any VB, LOF, contractions, Kick counts reviewed and when to call for any decreased FM. Encouraged patient to sign up for patient portal. Discussed to call the service here for any emergencies/deliveries to be directed to [facility]. Visit Date: 01/23/23 Last Updated by: Ella Sagastume CNM Note author: Ella Sagastume CNM/Sarah Odonnell medical secretary receptionist 36.3 wk ROMMEL. Feeling well. Taking PNV. Hydrating well and good appetite Good FM, no LOF, VB or abd pain. Prepped at home for baby. Plans to breast feed. Not interested in an epidural. She prefers a natural , may consider something IV. Undecided re: BC pp, reviewed options today-will consider. Advised to pick a Pedi soon, options available. EPDS= 9, she has not seen a therapist, but has support at home. She prefers not to talk about things. Offered/encouraged referral for counseling- declines today. CRISIS information given. SFD, OB growth check at [facility]. GBS, GC/CT panel done today. cx appears LTC. Await results and treat accordingly. Discussed: PTL - LOF, VB, abd pain . Advised to eat small frequent meals and stay cool and hydrated. PEC - headaches: not resolved with 2 regular strength Tylenol doses, visual disturbances warnings and when to call for further evaluation. Reviewed when to call for any VB, LOF, contractions, Kick counts reviewed and when to call for any decreased FM. Encouraged patient to sign up for patient portal. Discussed to call the service here for any emergencies/deliveries to be directed to [facility]. RTO 1 wk/prn. Visit Date: 12/27/22 Last Updated by: Ella Sagastume CNM Note author: Ella Sagastume CNM/Sarah Odonnell medical secretary receptionist 32.4 wk ROMMEL. Feeling well. Taking PNV. Hydrating well and good appetite Good FM, no LOF, VB or abd pain. She is here with her partner Pb. Informed she started a new job at [employer]. Discussed: PTL - LOF, VB, abd pain . Tdap today Prepping at home for the baby. PEC - headaches: not resolved, visual disturbances warnings and when to call for further evaluation to check for pre-eclampsia. Reviewed when to call for any VB, LOF, contractions, Kick counts reviewed and when to call for any decreased FM. Discussed to call the service here for any emergencies/deliveries to be directed to [facility]. RTO 2 wks. Visit Date: 12/12/22 Last Updated by: Ella Sagastume CNM Note author: Ella Sagastume CNM/Sarah Odonnell medical secretary receptionist 30.3wk ROMMEL. Feeling well. Taking PNV. Hydrating well and good appetite Good FM, no LOF, VB or abd pain. Reports she has not been taking Iron pill because it was not making her feel well. Discussed: PTL - LOF, VB, abd pain . US measurements and diagnostics, repeat if indicated. Recommended taking PNV one hr. after food, then iron later separate timeframe. Advised to eat healthy including small frequent meals every 2 hrs and stay hydrated in hot weather. PEC - headaches: not resolved with 2 regular strength Tylenol doses, visual disturbances warnings and when to call for further evaluation. Reviewed when to call for any VB, LOF, contractions, Kick counts reviewed and when to call for any decreased FM. Encouraged patient to sign up for patient portal. Discussed to call the service here for any emergencies/deliveries to be directed to [facility]. Consider Tdap, defers until next visit. Handout given. RTO 2 wks Visit Date: 11/26/22 Last Updated by: Ella Sagastume CNM Note author: Ella Sagastume CNM/Sarah Odonnell medical secretary receptionist 28.1k ROMMEL. Feeling well. Taking PNV and iron. Hydrating well and good appetite Good FM, no LOF, VB or abd pain. Partner in for the visit today. Reports she is supposed to have a meeting with [facility] and her counselor sent an email recently, but missed her appt. time, she has decided to stay with delivery at [facility]. EPDS=11, no on #10, offered ref: for counseling, will possibly consider. Discussed: PTL - LOF, VB, abd pain Advised to eat healthy including small frequent meals every 2 hrs and stay hydrated in hot weather. Lab results; anemia. Varicella non immune- consider vaccine pp. US follow up for growth ordered. PEC - headaches: not resolved with 2 regular strength Tylenol doses, visual disturbances warnings and when to call for further evaluation. Reviewed when to call for any VB, LOF, contractions, Kick counts reviewed and when to call for any decreased FM. Encouraged patient to sign up for patient portal. Discussed to call the service here for any emergencies/deliveries to be directed to [facility]. Consider plans and control options. RTO 2 wks. Visit Date: 10/29/22 Last Updated by: Ella Sagastume CNM Note author: Ella Sagastume CNM/Sarah Odonnell medical secretary receptionist 24.1wk ROMMEL. Feeling well. Taking PNV. Good FM, no LOF, VB or abd pain. She is doing well with no complaints. She is interested in possibly transferring / care for more options such as a birthing center. She is agreeable to do labs soon. Discussed: PTL - LOF, VB, abd pain, regular contractions. Advised to research [facility] for home options. Encouraged patient to sign up for patient portal. PEC - headaches: not resolved with 2 regular strength Tylenol doses, visual disturbances warnings and when to call for further evaluation. Reviewed when to call for any VB, LOF, contractions, Kick counts reviewed and when to call for any decreased FM. Discussed to call the service here for any emergencies/deliveries to be directed to [facility]. Visit Date: 09/24/22 Last Updated by: Ella Sagastume CNM Note author: Ella Sagastume CNM/Sarah Odonnell medical secretary receptionist 19.1wk ROMMEL. Feeling well. Taking PNV. Good FM, no LOF, VB. No PN labs done, has transportation issues, mom helping with rides. Has WIC. Seen in the ED 09/20/22 for lightheadedness and feeling weak. Discussed: PTL - LOF, VB, abd pain, Advised to do labs today and schedule US. Concerned re: weight gain, low appetite at times. Track meal and food intake. Maintain healthy diet and stay hydrates with water. PEC - headaches: not resolved with 2 regular strength Tylenol doses, visual disturbances warnings and when to call for further evaluation. Discussed to call the service here for any emergencies/deliveries to be directed to [facility]. Reviewed when to call for any emergent care. RTO 4wks, FAS ordered Agree's to have labs done today. Visit Date: 08/23/22 Last Updated by: Ella Sagastume CNM Note author: Ella Sagastume CNM/Juany Dempsey medical secretary receptionist 14.4 wk ROMMEL. Taking PNV. Good FM. Denies LOF, VB or abd pain. Doing well with no concerns. Does not have a good appetite due to nausea. Has not picked up her Unisom and Vitamin B6. She stays well hydrated. She has done her First screen labs, records not available yet. Has not done first trimester labs. Her partner, Pb, and mom were present for FHR. Discussed: VB warnings and when to call for further evaluation. PEC - headaches: not resolved with 2 regular strength Tylenol doses, visual disturbances warnings and when to call for further evaluation.? Staying well hydrated, drink 8-10 glasses of water per day. Encouraged to picking crew supervisor Unisom and Vitamin B6 to help prevent nausea. Agrees to do labs tomorrow. RTO in 4 weeks. Visit Date: 08/01/22 Last Updated by: Ella Sagastume CNM The patient agreed to use of a medical secretary receptionist during this encounter. Scribed for ROBERT Wilson by Sarah Odonnell medical secretary receptionist, on at 00:00 am EST. 11.3 wk OB. Taking PNV, BASA qd. Good FM. Denies LOF, VB or abd pain. Good appetite and stays well hydrated. States her nausea is off and on. Denies vaginal itching and irritation. Discussed: PTL-LOF, VB, abd pain, ctx and when to call for further evaluation. Advised to withhold from intimacy momentarily, report any VB B6 vits TID for nausea and Unisom prn Encouraged to contact office if she has any concerns about depression. Advised to obtain her PN labs this week Staying well hydrated, drink 8-10 glasses of water per day. She is agreeable to delivering at [facility]. Will have further discussion at next visit. RTO 4wks Visit Date: 07/26/22 Last Updated by: Leatha Zamarripahector Davies is 17 yo here for her heel sander. LMP was last week of April. US 06/25/22 at 6w1d with NAYELI 02/17/23. She had additional US 07/23/22 at 11w0d with NAYELI 02/11/23. She has h/o subchorionic bleed, nausea and fatigue. She was prescribed B6/Unisom but has not picked up from pharmacy yet. Pt has FH of diabetes and early glucose was added to her labs. Pt was advised no sweets or carbs beginning at 2000, night before she plans to have labs done and the same for her breakfast. Will schedule NT US and 1st trimester screen at [facility]. Pt has allergy to PCN. She had Covid 06/2021 and has been vaccinated x2, no boosters. Pt BMI today is 22.4. She does not know how much she weighed before her and does not know if she has lost or gained weight. Pt was given the folder. We discussed danger signs, pelvic pain especially if unilateral and may be associated with shoulder pain and/or vaginal bleeding. She understands to call if she has either symptom. Pt was advised 24/ MD coverage and how to reach MD after hours/weekends/holidays. She is aware that delivery will take place at [facility] as well as some testing and where she is to go. We reviewed first trimester education. Pt will schedule OB PE today, labs were ordered. Pt was accompanied by her Mom and her partner, Pb. Of note: we did not discuss domestic violence questions. Pt verbalizes understanding and agrees with plan. No further questions. Assessment & Plan Assessment & Plan (1) Encounter for supervision of normal in third trimester: Code(s): Z34.93 - Encounter for supervision of normal , unspecified, third trimester Category: Medical Coding Level of Care Code Tara Diagnoses Encounter for supervision of normal in third trimester Z34.93
== END 2023-02-05 15:12 | disposition home or self-care (01) ==
LOC: HO.HWS 13:58
PROVIDERS: Visit Provider Advanced Practice Midwife
DX: Z34.93 Encounter for supervision of normal pregnancy, unspecified, third trimester (principal)
CPT/HCPCS: 25942

== ENCOUNTER → 2023-02-05 13:58 | Outpatient (BNVA) | payer OTHER, SELFPAY | PROVIDERS: Visit Provider Advanced Practice Midwife | DX: O43.123 Velamentous insertion of umbilical cord, third trimester (principal); Z3A.38 38 weeks gestation of pregnancy | CPT/HCPCS: 99212 ==

== ENCOUNTER 2023-02-07 16:59 | Emergency (ER) | payer OTHER, SELFPAY ==
[2023-02-07 17:02] VITALS: BP 106/56; PULSE 99; RESP 18; TEMP 36.7; O2SAT 99; BMI 26.6
--- NOTE | 2023-02-07 17:02 | ED_ITS ---
patient left after initial evaluation I did not see the patient HPI - General Adult General Chief complaint: General Medical Stated complaint: Nausea Related Data Previous Rx's Medication Instructions Recorded prenat.vits,may,[id number] 1 tab PO BEDTIME #90 tabs 10/29/22 ferrous sulfate 324 mg (65 mg 324 mg PO BID #60 tabs 10/30/22 iron) tablet,delayed release Allergies Allergy/AdvReac Type Severity Reaction Status Date / Time penicillin V Allergy Unknown Hives Verified 02/05/23 14:23 Penicillins [PENICILLINS] Allergy Unknown ANAPHYLAXIS Verified 02/05/23 14:23 [facility] Past Medical History Medical History (Updated 02/10/23 @ 07:12 by Hellen Schuster NP) COVID-19 Encounter for supervision of normal in third trimester Surgical History No pertinent past surgical history Family History Family History Mother No problems noted. Father No problems noted. 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 Patient is a 17-year-old female presenting to the emergency department with nausea, dizziness, and lightheadedness. States she feels may be related to low iron, stopped taking her iron supplements because she felt they were not decreasing her fatigue. NAYELI is 02/17/23. Plan: labs, UA Medical Decision Making Lab Data 02/07/23 17:21 02/07/23 17:21 Labs: Lab Results 02/07/23 02/07/23 02/07/23 Range/Units 17:21 17:21 17:21 WBC 8.6 (4.8-10.8) X10*3/uL RBC 3.66 L (4.20-5.50) X10*6/uL Hgb 10.3 L (12.0-16.0) g/dl Hct 31.1 L (37.0-47.0) % MCV 85.0 (80.0-98.0) fL MCH 28.1 (27.0-33.0) pg MCHC 33.1 (31.0-35.0) g/dl RDW 13.3 (11.0-16.0) % Plt Count 154 L (160-400) X10*3/uL MPV 13.0 H (9.4-12.3) fL Immature Gran % (Auto) 0.4 (0.0-0.4) % Neut % (Auto) 73.2 H (45-73) % Lymph % (Auto) 18.9 L (20-40) % [place] % (Auto) 6.5 (2-11) % Eos % (Auto) 0.9 (0-4) % Baso % (Auto) 0.1 (0-2) % Lymph # (Auto) 1.6 (1.2-4.9) X10*3/uL [place] # (Auto) 0.6 (0.1-1.2) X10*3/uL Eos # (Auto) 0.1 (0.0-0.4) X10*3/uL Baso # (Auto) 0.0 (0.0-0.2) X10*3/uL Abs Immat Gran (auto) 0.03 (0.00-0.03) X10*3/uL Absolute Neuts (auto) 6.3 (2.0-8.3) x10*3/uL Absolute Nucleated RBC 0.000 (0.0-0.012) X10*3/uL Nucleated RBC % (auto) 0.0 (0.0-0.2) /100WBC Sodium 136 (135-145) mmol/L Potassium 4.1 (3.3-5.1) mmol/L Chloride 109 H (96-108) mmol/L Carbon Dioxide 19 L (22-29) mmol/L Anion Gap 12 (12-20) BUN 5 L (9-16) mg/dL Creatinine 0.60 (0.5-1.4) mg/dL Estim Creat Clear Calc 139.6 Estimated GFR > 60 Random Glucose 83 (60-115) mg/dL Calcium 8.7 (8.4-10.2) mg/dL Total Bilirubin 1.0 (0.0-1.0) mg/dL AST 13 (5-31) U/L ALT 8 (0-31) U/L Alkaline Phosphatase 183 H (39-117) U/L Troponin I High Sens < 2.7 (<3.5-17.0) ng/L Total Protein 6.3 L (6.5-8.0) g/dL Albumin 3.1 L (3.5-5.0) g/dL Discharge Plan Discharge Clinical Impression: Nausea Patient Disposition: Elopement Prescriptions: No Action ferrous sulfate 324 mg (65 mg iron) tablet,delayed release (DR/EC) 324 mg PO BID Qty: 60 0RF Rx Instructions: take w vit c rich juice and diet to prevent constipation prenat.vits,may,[id number] Tablet 1 tab PO BEDTIME Qty: 90 2RF Interventions: ED Discharge Assessment Last Done: 02/07/23 23:16 Discharge Date/Time: 02/07/23 23:18
--- NOTE | 2023-02-07 17:05 | ECG_ITS ---
Test Reason : CHEST PRESSURE Blood Pressure : / mmHG Vent. Rate : 089 BPM Atrial Rate : 089 BPM P-R Int : 124 ms QRS Dur : 068 ms QT Int : 330 ms P-R-T Axes : 044 043 014 degrees QTc Int : 401 ms Normal sinus rhythm Normal ECG When compared with ECG of 20-SEP-2022 19:34, T wave inversion now evident in Inferior leads Referred By: Hellen Schuster Electronically Signed By:DESHAWN HERNANDEZ
[2023-02-07 17:25] LABS: MANUAL DIFF FLAG NO
[2023-02-07 18:02] LABS: Basophils Percent Auto 0.1 % (0-2); Eosinophils Absolute Auto 0.1 X10*3/uL (0.0-0.4); Eosinophils Percent Auto 0.9 % (0-4); Hematocrit 31.1 % (37.0-47.0); Hemoglobin 10.3 g/dl (12.0-16.0); Imm Gran Abs Auto 0.03 X10*3/uL (0.00-0.03); Imm Gran Pct Auto 0.4 % (0.0-0.4); Lymphocytes Absolute Auto 1.6 X10*3/uL (1.2-4.9); Lymphocytes Percent Auto 18.9 % (20-40); Mean Corpuscular HGB Conc 33.1 g/dl (31.0-35.0); Mean Corpuscular Hemoglobin 28.1 pg (27.0-33.0); Monocytes Absolute Auto 0.6 X10*3/uL (0.1-1.2); Monocytes Percent Auto 6.5 % (2-11); Neutrophils Absolute Auto 6.3 x10*3/uL (2.0-8.3); Neutrophils Percent Auto 73.2 % (45-73); Platelet Count 154 X10*3/uL (160-400); Red Blood Count 3.66 X10*6/uL (4.20-5.50); Red Cell Distribution Width 13.3 % (11.0-16.0); White Blood Count 8.6 X10*3/uL (4.8-10.8)
[2023-02-07 18:11] LABS: Alanine Aminotransferase 8 U/L (0-31); Albumin Level 3.1 g/dL (3.5-5.0); Alkaline Phosphatase 183 U/L (39-117); Anion Gap 12 (12-20); Aspartate Amino Transferase 13 U/L (5-31); Blood Urea Nitrogen 5 mg/dL (9-16); Calcium 8.7 mg/dL (8.4-10.2); Carbon Dioxide 19 mmol/L (22-29); Chloride 109 mmol/L (96-108); Creatinine Clr Calc Pharmacy 139.6; Estimated Glomerular Filt Rate > 60; Glucose Random 83 mg/dL (60-115); Potassium 4.1 mmol/L (3.3-5.1); Sodium 136 mmol/L (135-145); Total Protein 6.3 g/dL (6.5-8.0)
[2023-02-07 18:37] LABS: Troponin-I High Sensitivity < 2.7 ng/L (<3.5-17.0)
== END 2023-02-07 23:18 | disposition left against medical advice (07) ==
PROVIDERS: Registered Nurse Emergency; Emergency Provider Emergency Medicine
DX: R11.0 Nausea (principal); D50.9 Iron deficiency anemia, unspecified; Z91.148 Patient's other noncompliance with medication regimen for other reason
CPT/HCPCS: 36415; 80053; 84484; 85025; 93005; 99283

== ENCOUNTER → 2023-02-07 17:05 | Outpatient (BNV) | payer OTHER, SELFPAY | PROVIDERS: Emergency Provider Emergency Medicine; Visit Provider Internal Medicine | DX: R07.9 Chest pain, unspecified (principal) | CPT/HCPCS: 93010 ==

== ENCOUNTER 2023-02-14 10:42 | Outpatient (AMB) | payer OTHER, SELFPAY ==
--- NOTE | 2023-02-14 10:52 | MHC.OFFVISPN ---
Intake Vital Signs 02/14/23 10:55 Height 5 ft 3 in Weight 150 lb BMI 26.6 BP 108/62 Intake Visit Reasons: ROMMEL Intake Note: The patient agreed to use of a director of medical staff services during this encounter. Scribed for ROBERT Wilson by Sarah Odonnell director of medical staff services, on 02/14/2023 at 11:15 am EST. Program Aide Group Work Required: No Information Interpreted: non-clinical & clinical Accompanied by: Significant Other Allergies penicillin V Allergy (Unknown, Verified 02/14/23 10:55) Hives Penicillins [PENICILLINS] Allergy (Unknown, Verified 02/14/23 10:55) ANAPHYLAXIS Patient : Yes [facility] Medical History (Updated 02/11/23 @ 00:00 by Adelaida Perry) COVID-19 Encounter for supervision of normal in third trimester Surgical History No pertinent past surgical history Family History Mother No problems noted. Father No problems noted. 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 FH DM: H/o subchorionic bleed nausea-B6 and Unisom, counseled re: small freq. meals and fluid intake EPDS=11, no #11, 28wk=11 28w cbc- 10.9/32.7-rx iron Varicella non immune-consider pp vaccination. NT: nl First trimester screen: FAS: nl scan, marginal cord insertion. 3rd trimester US 20% growth, repeat study on 02/10/23... WIC: enrolled CBE:advised Vaccination status: COVID: 2 boosters Tdap: given 12/27/22 Flu: pt. informed/declined-pt. reports mom did not want her to have this Social hx: FOB-Pb. Lives with mom, and 4 siblings. 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 Labor support: FOB plan: control: OB Visit Log Initial Weight: 120 lb Date <del>?</del> EGA Weight Gest Week Fundal Ht Present FHR move Efface % Edema BP PrePreg We Weight GTT <del>?</del> Glucose LV Protein Blood Type 07/26/22 <del>?</del> 10w 4d 127 lb (+7 lb) 127 lb <del>?</del> 08/01/22 <del>?</del> 11w 3d 126 lb (+6 lb) 11 160 active 92/58 126 lb <del>?</del> 08/23/22 <del>?</del> 14w 4d 125 lb (+5 lb) 14 150 106/68 125 lb <del>?</del> 09/24/22 <del>?</del> 19w 1d 130 lb (+10 lb) 19 150 active 98/54 130 lb <del>?</del> 10/29/22 <del>?</del> 24w 1d 137 lb (+17 lb) 25 150 active 90/60 137 lb <del>?</del> 11/26/22 <del>?</del> 28w 1d 140 lb (+20 lb) 26.5 150 active 100/54 140 lb <del>?</del> 12/12/22 <del>?</del> 30w 3d 141 lb (+21 lb) 31 150 active 100/62 141 lb <del>?</del> 12/27/22 <del>?</del> 32w 4d 142 lb (+22 lb) 31 140 active 104/68 142 lb <del>?</del> 01/23/23 <del>?</del> 36w 3d 150 lb (+30 lb) 32 140 active 104/62 150 lb <del>?</del> 01/30/23 <del>?</del> 37w 3d 149 lb (+29 lb) 32 140 active 110/60 149 lb <del>?</del> 02/05/23 <del>?</del> 38w 2d 149 lb (+29 lb) 34 140 active 100/64 149 lb <del>?</del> 02/14/23 <del>?</del> 39w 4d 150 lb (+30 lb) 39 34 140 active 108/62 150 lb <del>?</del> Notes Visit Date: 02/14/23 Last Updated by: Ella Sagastume CNM Note author: Ella Sagastume CNM/Sarah Odonnell director of medical staff services 39.4 wk ROMMEL. Feeling well. Taking PNV. Hydrating well and good appetite Good FM, no LOF, VB or abd pain. Partner at visit. Having experiencing Evart schumacher. Reports feeling sick (fatigue, acid reflux and nausea) went to ED this week but walked out before given care. Discussed: PTL - LOF, VB, abd pain. Pepcid and B6 sent to pharmacy. Advised to eat small frequent meals and stay cool and hydrated. Contact office if after 40 weeks and if overdue then there will be additional testing. PEC - headaches: not resolved with 2 regular strength Tylenol doses, visual disturbances warnings and when to call for further evaluation. Reviewed when to call for any VB, LOF, contractions, Kick counts reviewed and when to call for any decreased FM. Discussed to call the service here for any emergencies/deliveries to be directed to [facility] RTO in 1 week. Visit Date: 02/05/23 Last Updated by: Ella Sagastume CNM Note author: Ella Sagastume CNM/Sarah Odonnell director of medical staff services 38.2 wk ROMMEL. Feeling well. Taking PNV. Hydrating well and good appetite Good FM, no LOF, VB or abd pain. She is here today with her Partner She has no concerns or complaints. Prepped for baby, dscussed packing for the hospital. Discussed: PTL - LOF, VB, abd pain . Advised to eat small frequent meals and stay cool and hydrated. PEC - headaches: not resolved with 2 regular strength Tylenol doses, visual disturbances warnings and when to call for further evaluation. Reviewed when to call for any VB, LOF, contractions, Kick counts reviewed and when to call for any decreased FM. Encouraged patient to sign up for patient portal. Discussed to call the service here for any emergencies/deliveries to be directed to [facility]. US is booked 02/10/23 for growth check. RTO in 1 week. Visit Date: 01/30/23 Last Updated by: Ella Sagastume CNM 37.3 wk ROMMEL. Feeling well. Taking PNV. Hydrating well and good appetite Good FM, no LOF, VB or abd pain. Partner is present during visit. US for growth check not booked yet, plan staff to call and check on the status of appt. Reports having Evart Schumacher. Discussed: PTL - LOF, VB, abd pain . GBS- Negative-chart copy sent to [facility] today. Informed Evart Schumacher symptoms. If delivers baby, contact office to schedule PPV. Advised to eat small frequent meals and stay cool and hydrated. PEC - headaches: not resolved with 2 regular strength Tylenol doses, visual disturbances warnings and when to call for further evaluation. Reviewed when to call for any VB, LOF, contractions, Kick counts reviewed and when to call for any decreased FM. Encouraged patient to sign up for patient portal. Discussed to call the service here for any emergencies/deliveries to be directed to [facility]. Visit Date: 01/23/23 Last Updated by: Ella Sagastume CNM Note author: Ella Sagastume CNM/Sarah Odonnell director of medical staff services 36.3 wk ROMMEL. Feeling well. Taking PNV. Hydrating well and good appetite Good FM, no LOF, VB or abd pain. Prepped at home for baby. Plans to breast feed. Not interested in an epidural. She prefers a natural , may consider something IV. Undecided re: BC pp, reviewed options today-will consider. Advised to pick a Pedi soon, options available. EPDS= 9, she has not seen a therapist, but has support at home. She prefers not to talk about things. Offered/encouraged referral for counseling-declines today. CRISIS information given. SFD, OB growth check at [facility]. GBS, GC/CT panel done today. cx appears LTC. Await results and treat accordingly. Discussed: PTL - LOF, VB, abd pain . Advised to eat small frequent meals and stay cool and hydrated. PEC - headaches: not resolved with 2 regular strength Tylenol doses, visual disturbances warnings and when to call for further evaluation. Reviewed when to call for any VB, LOF, contractions, Kick counts reviewed and when to call for any decreased FM. Encouraged patient to sign up for patient portal. Discussed to call the service here for any emergencies/deliveries to be directed to [facility]. RTO 1 wk/prn. Visit Date: 12/27/22 Last Updated by: Ella Sagastume CNM Note author: Ella Sagastume CNM/Sarah Odonnell director of medical staff services 32.4 wk ROMMEL. Feeling well. Taking PNV. Hydrating well and good appetite Good FM, no LOF, VB or abd pain. She is here with her partner Pb. Informed she started a new job at [employer]. Discussed: PTL - LOF, VB, abd pain . Tdap today Prepping at home for the baby. PEC - headaches: not resolved, visual disturbances warnings and when to call for further evaluation to check for pre-eclampsia. Reviewed when to call for any VB, LOF, contractions, Kick counts reviewed and when to call for any decreased FM. Discussed to call the service here for any emergencies/deliveries to be directed to [facility]. RTO 2 wks. Visit Date: 12/12/22 Last Updated by: Ella Sagastume CNM Note author: Ella Sagastume CNM/Sarah Odonnell director of medical staff services 30.3wk ROMMEL. Feeling well. Taking PNV. Hydrating well and good appetite Good FM, no LOF, VB or abd pain. Reports she has not been taking Iron pill because it was not making her feel well. Discussed: PTL - LOF, VB, abd pain . US measurements and diagnostics, repeat if indicated. Recommended taking PNV one hr. after food, then iron later separate timeframe. Advised to eat healthy including small frequent meals every 2 hrs and stay hydrated in hot weather. PEC - headaches: not resolved with 2 regular strength Tylenol doses, visual disturbances warnings and when to call for further evaluation. Reviewed when to call for any VB, LOF, contractions, Kick counts reviewed and when to call for any decreased FM. Encouraged patient to sign up for patient portal. Discussed to call the service here for any emergencies/deliveries to be directed to [facility]. Consider Tdap, defers until next visit. Handout given. RTO 2 wks Visit Date: 11/26/22 Last Updated by: Ella Sagastume CNM Note author: Ella Sagastume CNM/Sarah Odonnell director of medical staff services 28.1k ROMMEL. Feeling well. Taking PNV and iron. Hydrating well and good appetite Good FM, no LOF, VB or abd pain. Partner in for the visit today. Reports she is supposed to have a meeting with [facility] and her counselor sent an email recently, but missed her appt. time, she has decided to stay with delivery at [facility]. EPDS=11, no on #10, offered ref: for counseling, will possibly consider. Discussed: PTL - LOF, VB, abd pain Advised to eat healthy including small frequent meals every 2 hrs and stay hydrated in hot weather. Lab results; anemia. Varicella non immune- consider vaccine pp. US follow up for growth ordered. PEC - headaches: not resolved with 2 regular strength Tylenol doses, visual disturbances warnings and when to call for further evaluation. Reviewed when to call for any VB, LOF, contractions, Kick counts reviewed and when to call for any decreased FM. Encouraged patient to sign up for patient portal. Discussed to call the service here for any emergencies/deliveries to be directed to [facility]. Consider plans and control options. RTO 2 wks. Visit Date: 10/29/22 Last Updated by: Ella Sagastume CNM Note author: Ella Sagastume CNM/Sarah Blas director of medical staff services 24.1wk ROMMEL. Feeling well. Taking PNV. Good FM, no LOF, VB or abd pain. She is doing well with no complaints. She is interested in possibly transferring / care for more options such as a birthing center. She is agreeable to do labs soon. Discussed: PTL - LOF, VB, abd pain, regular contractions. Advised to research [facility] for home options. Encouraged patient to sign up for patient portal. PEC - headaches: not resolved with 2 regular strength Tylenol doses, visual disturbances warnings and when to call for further evaluation. Reviewed when to call for any VB, LOF, contractions, Kick counts reviewed and when to call for any decreased FM. Discussed to call the service here for any emergencies/deliveries to be directed to [facility]. Visit Date: 09/24/22 Last Updated by: Ella Sagastume CNM Note author: Ella Sagastume CNM/Sarah Odonnell director of medical staff services 19.1wk ROMMEL. Feeling well. Taking PNV. Good FM, no LOF, VB. No PN labs done, has transportation issues, mom helping with rides. Has WIC. Seen in the ED 09/20/22 for lightheadedness and feeling weak. Discussed: PTL - LOF, VB, abd pain, Advised to do labs today and schedule US. Concerned re: weight gain, low appetite at times. Track meal and food intake. Maintain healthy diet and stay hydrates with water. PEC - headaches: not resolved with 2 regular strength Tylenol doses, visual disturbances warnings and when to call for further evaluation. Discussed to call the service here for any emergencies/deliveries to be directed to [facility]. Reviewed when to call for any emergent care. RTO 4wks, FAS ordered Agree's to have labs done today. Visit Date: 08/23/22 Last Updated by: Ella Sagastume CNM Note author: Ella Sagastume CNM/Juany Dempsey, director of medical staff services 14.4 wk ROMMEL. Taking PNV. Good FM. Denies LOF, VB or abd pain. Doing well with no concerns. Does not have a good appetite due to nausea. Has not picked up her Unisom and Vitamin B6. She stays well hydrated. She has done her First screen labs, records not available yet. Has not done first trimester labs. Her partner, Pb, and mom were present for FHR. Discussed: VB warnings and when to call for further evaluation. PEC - headaches: not resolved with 2 regular strength Tylenol doses, visual disturbances warnings and when to call for further evaluation.? Staying well hydrated, drink 8-10 glasses of water per day. Encouraged to potato picker Unisom and Vitamin B6 to help prevent nausea. Agrees to do labs tomorrow. RTO in 4 weeks. Visit Date: 08/01/22 Last Updated by: Ella Sagastume CNM The patient agreed to use of a director of medical staff services during this encounter. Scribed for ROBERT Wilson by Sarah Odonnell director of medical staff services, on at 00:00 am EST. 11.3 wk OB. Taking PNV, BASA qd. Good FM. Denies LOF, VB or abd pain. Good appetite and stays well hydrated. States her nausea is off and on. Denies vaginal itching and irritation. Discussed: PTL-LOF, VB, abd pain, ctx and when to call for further evaluation. Advised to withhold from intimacy momentarily, report any VB B6 vits TID for nausea and Unisom prn Encouraged to contact office if she has any concerns about depression. Advised to obtain her PN labs this week Staying well hydrated, drink 8-10 glasses of water per day. She is agreeable to delivering at [facility]. Will have further discussion at next visit. RTO 4wks Visit Date: 07/26/22 Last Updated by: Leatha Yung Stone Davies is 17 yo here for her field rep. LMP was last week of April. US 06/25/22 at 6w1d with NAYELI 02/17/23. She had additional US 07/23/22 at 11w0d with NAYELI 02/11/23. She has h/o subchorionic bleed, nausea and fatigue. She was prescribed B6/Unisom but has not picked up from pharmacy yet. Pt has FH of diabetes and early glucose was added to her labs. Pt was advised no sweets or carbs beginning at 1999, night before she plans to have labs done and the same for her breakfast. Will schedule NT US and 1st [place] screen [place] [facility] Pt has allergy to PCN. She had Covid 06/2021 and has been vaccinated x2, no boosters. Pt BMI today is 22.4. She does not know how much she weighed before her and does not know if she has lost or gained weight. Pt was given the folder. We discussed danger signs, pelvic pain especially if unilateral and may be associated with shoulder pain and/or vaginal bleeding. She understands to call if she has either symptom. Pt was advised 24/ MD coverage and how to reach MD after hours/weekends/holidays. She is aware that delivery will take place at [facility] as well as some testing and where she is to go. We reviewed first trimester education. Pt will schedule OB PE today, labs were ordered. Pt was accompanied by her Mom and her partner, Pb. Of note: we did not discuss domestic violence questions. Pt verbalizes understanding and agrees with plan. No further questions. Assessment & Plan Assessment & Plan (1) Encounter for supervision of normal in third trimester: Code(s): Z34.93 - Encounter for supervision of normal , unspecified, third trimester Category: Medical Medications: New famotidine (Pepcid AC) 10 mg PO BID 60 tabs 1RF 30 days pyridoxine (vitamin B6) 25 mg PO TID PRN 90 tabs 0RF nausea and vomiting Coding Level of Care Code [facility] Encounter for supervision of normal in third trimester Z34.93
[2023-02-14 10:55] VITALS: BP 108/62; BMI 26.6
== END 2023-02-14 11:25 | disposition home or self-care (01) ==
LOC: HO.HWS 10:42
PROVIDERS: Visit Provider Advanced Practice Midwife
DX: Z34.93 Encounter for supervision of normal pregnancy, unspecified, third trimester (principal)
CPT/HCPCS: 25942

== ENCOUNTER → 2023-02-14 10:42 | Outpatient (BNVA) | payer OTHER, SELFPAY | PROVIDERS: Visit Provider Advanced Practice Midwife | DX: O47.1 False labor at or after 37 completed weeks of gestation (principal); O43.123 Velamentous insertion of umbilical cord, third trimester; O26.893 Other specified pregnancy related conditions, third trimester; K21.9 Gastro-esophageal reflux disease without esophagitis; R11.0 Nausea; Z3A.39 39 weeks gestation of pregnancy; Z83.3 Family history of diabetes mellitus | CPT/HCPCS: 99212 ==

== ENCOUNTER 2023-02-21 08:07 | Outpatient (AMB) | payer OTHER, SELFPAY ==
--- NOTE | 2023-02-21 08:07 | MHC.OFFVISPN ---
Intake Vital Signs 02/21/23 08:08 Height 5 ft 3 in Weight 153 lb BMI 27.1 BP 104/60 Intake Visit Reasons: taina Intake Note: The patient agreed to use of a medical massage therapist during this encounter. Scribed for ROBERT Wilson by Sarah Odonnell medical massage therapist, on 02/21/2023 at 8:13 am EST. Housekeeping Lead Required: No Information Interpreted: non-clinical & clinical Accompanied by: Significant Other Allergies penicillin V Allergy (Unknown, Verified 02/21/23 08:09) Hives Penicillins [PENICILLINS] Allergy (Unknown, Verified 02/21/23 08:09) ANAPHYLAXIS Patient : Yes COUNT INCLUDES THE [facility] Medical History (Updated 02/11/23 @ 00:00 by Adelaida Perry) COVID-19 Encounter for supervision of normal in third trimester Surgical History No pertinent past surgical history Family History Mother No problems noted. Father No problems noted. 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 FH DM: H/o subchorionic bleed nausea-B6 and Unisom, counseled re: small freq. meals and fluid intake EPDS=11, no #11, 28wk=11 28w cbc- 10.9/32.7-rx iron Varicella non immune-consider pp vaccination. NT: nl First trimester screen: FAS: nl scan, marginal cord insertion. 3rd trimester US 20% growth, repeat study on 02/10/23... WIC: enrolled CBE:advised Vaccination status: COVID: 2 boosters Tdap: given 12/27/22 Flu: pt. informed/declined-pt. reports mom did not want her to have this Social hx: FOB-Pb. Lives with mom, and 4 siblings. 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 Labor support: FOB plan: control: OB Visit Log Initial Weight: 120 lb Date <del>?</del> EGA Weight Gest Week Fundal Ht Present FHR move Efface % Edema BP PrePreg We Weight GTT <del>?</del> Glucose LV Protein Blood Type 07/26/22 <del>?</del> 10w 4d 127 lb (+7 lb) 127 lb <del>?</del> 08/01/22 <del>?</del> 11w 3d 126 lb (+6 lb) 11 160 active 92/58 126 lb <del>?</del> 08/23/22 <del>?</del> 14w 4d 125 lb (+5 lb) 14 150 106/68 125 lb <del>?</del> 09/24/22 <del>?</del> 19w 1d 130 lb (+10 lb) 19 150 active 98/54 130 lb <del>?</del> 10/29/22 <del>?</del> 24w 1d 137 lb (+17 lb) 25 150 active 90/60 137 lb <del>?</del> 11/26/22 <del>?</del> 28w 1d 140 lb (+20 lb) 26.5 150 active 100/54 140 lb <del>?</del> 12/12/22 <del>?</del> 30w 3d 141 lb (+21 lb) 31 150 active 100/62 141 lb <del>?</del> 12/27/22 <del>?</del> 32w 4d 142 lb (+22 lb) 31 140 active 104/68 142 lb <del>?</del> 01/23/23 <del>?</del> 36w 3d 150 lb (+30 lb) 32 140 active 104/62 150 lb <del>?</del> 01/30/23 <del>?</del> 37w 3d 149 lb (+29 lb) 32 140 active 110/60 149 lb <del>?</del> 02/05/23 <del>?</del> 38w 2d 149 lb (+29 lb) 34 140 active 100/64 149 lb <del>?</del> 02/14/23 <del>?</del> 39w 4d 150 lb (+30 lb) 39 34 140 active 108/62 150 lb <del>?</del> 02/21/23 <del>?</del> 40w 4d 153 lb (+33 lb) 34 150 active 104/60 153 lb <del>?</del> Notes Visit Date: 02/21/23 Last Updated by: Ella Sagastume CNM Note author: Ella Sagastume CNM/Sarah Odonnell medical massage therapist 40.4 wk TAINA. Feeling well. Taking PNV. Hydrating well and good appetite Good FM, no LOF, VB or abd pain. She reports she was feeling weak, had a headache, and contractions over the last few days, feeling better today. VE: Cx. posterior, unable to reach cx due to low position of head. Discussed: PTL - LOF, VB, abd pain. Advised to eat small frequent meals, hydrate well with water and stay cool. If she has not delivered by next week, IOL planned, staff to book along with any AP testing next week. PEC - headaches: not resolved with 2 regular strength Tylenol doses, visual disturbances warnings and when to call for further evaluation. Reviewed when to call for any VB, LOF, contractions, Kick counts reviewed and when to call for any decreased FM. Book a 2 visit, notify the office of delivery. Visit Date: 02/14/23 Last Updated by: Ella Sagastume CNM Note author: Ella Sagastume CNM/Sarah Odonnell medical massage therapist 39.4 wk TAINA. Feeling well. Taking PNV. Hydrating well and good appetite Good FM, no LOF, VB or abd pain. Partner at visit. Having experiencing Pawel schumacher. Reports feeling sick (fatigue, acid reflux and nausea) went to ED this week but walked out before given care. Discussed: PTL - LOF, VB, abd pain. Pepcid and B6 sent to pharmacy. Advised to eat small frequent meals and stay cool and hydrated. Contact office if after 40 weeks and if overdue then there will be additional testing. PEC - headaches: not resolved with 2 regular strength Tylenol doses, visual disturbances warnings and when to call for further evaluation. Reviewed when to call for any VB, LOF, contractions, Kick counts reviewed and when to call for any decreased FM. Discussed to call the service here for any emergencies/deliveries to be directed to [facility] RTO in 1 week. Visit Date: 02/05/23 Last Updated by: Ella Sagastume CNM Note author: Ella Sagastume CNM/Sarah Odonnell medical massage therapist 38.2 wk TAINA. Feeling well. Taking PNV. Hydrating well and good appetite Good FM, no LOF, VB or abd pain. She is here today with her Partner She has no concerns or complaints. Prepped for baby, dscussed packing for the hospital. Discussed: PTL - LOF, VB, abd pain . Advised to eat small frequent meals and stay cool and hydrated. PEC - headaches: not resolved with 2 regular strength Tylenol doses, visual disturbances warnings and when to call for further evaluation. Reviewed when to call for any VB, LOF, contractions, Kick counts reviewed and when to call for any decreased FM. Encouraged patient to sign up for patient portal. Discussed to call the service here for any emergencies/deliveries to be directed to [facility]. US is booked 02/10/23 for growth check. RTO in 1 week. Visit Date: 01/30/23 Last Updated by: Ella Sagastume CNM 37.3 wk TAINA. Feeling well. Taking PNV. Hydrating well and good appetite Good FM, no LOF, VB or abd pain. Partner is present during visit. US for growth check not booked yet, plan staff to call and check on the status of appt. Reports having Lavaca Schumacher. Discussed: PTL - LOF, VB, abd pain . GBS- Negative-chart copy sent to [facility] today. Informed Pawel Schumacher symptoms. If delivers baby, contact office to schedule PPV. Advised to eat small frequent meals and stay cool and hydrated. PEC - headaches: not resolved with 2 regular strength Tylenol doses, visual disturbances warnings and when to call for further evaluation. Reviewed when to call for any VB, LOF, contractions, Kick counts reviewed and when to call for any decreased FM. Encouraged patient to sign up for patient portal. Discussed to call the service here for any emergencies/deliveries to be directed to [facility]. Visit Date: 01/23/23 Last Updated by: Ella Sagastume CNM Note author: Ella Sagastume CNM/Sarah Odonnell medical massage therapist 36.3 wk TAINA. Feeling well. Taking PNV. Hydrating well and good appetite Good FM, no LOF, VB or abd pain. Prepped at home for baby. Plans to breast feed. Not interested in an epidural. She prefers a natural , may consider something IV. Undecided re: BC pp, reviewed options today-will consider. Advised to pick a Pedi soon, options available. EPDS= 9, she has not seen a therapist, but has support at home. She prefers not to talk about things. Offered/encouraged referral for counseling-declines today. CRISIS information given. SFD, OB growth check at [facility]. GBS, GC/CT panel done today. cx appears LTC. Await results and treat accordingly. Discussed: PTL - LOF, VB, abd pain . Advised to eat small frequent meals and stay cool and hydrated. PEC - headaches: not resolved with 2 regular strength Tylenol doses, visual disturbances warnings and when to call for further evaluation. Reviewed when to call for any VB, LOF, contractions, Kick counts reviewed and when to call for any decreased FM. Encouraged patient to sign up for patient portal. Discussed to call the service here for any emergencies/deliveries to be directed to [facility]. RTO 1 wk/prn. Visit Date: 12/27/22 Last Updated by: Ella Sagastume CNM Note author: Ella Sagastume CNM/Sarah salazar scribe 32.4 wk TAINA. Feeling well. Taking PNV. Hydrating well and good appetite Good FM, no LOF, VB or abd pain. She is here with her partner Pb. Informed she started a new job at [employer]. Discussed: PTL - LOF, VB, abd pain . Tdap today Prepping at home for the baby. PEC - headaches: not resolved, visual disturbances warnings and when to call for further evaluation to check for pre-eclampsia. Reviewed when to call for any VB, LOF, contractions, Kick counts reviewed and when to call for any decreased FM. Discussed to call the service here for any emergencies/deliveries to be directed to [facility]. RTO 2 wks. Visit Date: 12/12/22 Last Updated by: Ella Sagastume CNM Note author: Ella Sagastume CNM/Sarah Odonnell medical massage therapist 30.3wk TAINA. Feeling well. Taking PNV. Hydrating well and good appetite Good FM, no LOF, VB or abd pain. Reports she has not been taking Iron pill because it was not making her feel well. Discussed: PTL - LOF, VB, abd pain . US measurements and diagnostics, repeat if indicated. Recommended taking PNV one hr. after food, then iron later separate timeframe. Advised to eat healthy including small frequent meals every 2 hrs and stay hydrated in hot weather. PEC - headaches: not resolved with 2 regular strength Tylenol doses, visual disturbances warnings and when to call for further evaluation. Reviewed when to call for any VB, LOF, contractions, Kick counts reviewed and when to call for any decreased FM. Encouraged patient to sign up for patient portal. Discussed to call the service here for any emergencies/deliveries to be directed to [facility]. Consider Tdap, defers until next visit. Handout given. RTO 2 wks Visit Date: 11/26/22 Last Updated by: Ella Sagastume CNM Note author: Ella Sagastume CNM/Sarah Odonnell medical massage therapist 28.1k TAINA. Feeling well. Taking PNV and iron. Hydrating well and good appetite Good FM, no LOF, VB or abd pain. Partner in for the visit today. Reports she is supposed to have a meeting with [facility] birthing unit and her counselor sent an email recently, but missed her appt. time, she has decided to stay with delivery at [facility]. EPDS=11, no on #10, offered ref: for counseling, will possibly consider. Discussed: PTL - LOF, VB, abd pain Advised to eat healthy including small frequent meals every 2 hrs and stay hydrated in hot weather. Lab results; anemia. Varicella non immune- consider vaccine pp. US follow up for growth ordered. PEC - headaches: not resolved with 2 regular strength Tylenol doses, visual disturbances warnings and when to call for further evaluation. Reviewed when to call for any VB, LOF, contractions, Kick counts reviewed and when to call for any decreased FM. Encouraged patient to sign up for patient portal. Discussed to call the service here for any emergencies/deliveries to be directed to [facility]. Consider plans and control options. RTO 2 wks. Visit Date: 10/29/22 Last Updated by: Ella Sagastume CNM Note author: Ella Sagastume CNM/Sarah Odonnell medical massage therapist 24.1wk TAINA. Feeling well. Taking PNV. Good FM, no LOF, VB or abd pain. She is doing well with no complaints. She is interested in possibly transferring / care for more options such as a birthing center. She is agreeable to do labs soon. Discussed: PTL - LOF, VB, abd pain, regular contractions. Advised to research [facility] for home options. Encouraged patient to sign up for patient portal. PEC - headaches: not resolved with 2 regular strength Tylenol doses, visual disturbances warnings and when to call for further evaluation. Reviewed when to call for any VB, LOF, contractions, Kick counts reviewed and when to call for any decreased FM. Discussed to call the service here for any emergencies/deliveries to be directed to [facility]. Visit Date: 09/24/22 Last Updated by: Ella Sagastume CNM Note author: Ella Sagastume CNM/Sarah Odonnell medical massage therapist 19.1wk TAINA. Feeling well. Taking PNV. Good FM, no LOF, VB. No PN labs done, has transportation issues, mom helping with rides. Has WIC. Seen in the ED 09/20/22 for lightheadedness and feeling weak. Discussed: PTL - LOF, VB, abd pain, Advised to do labs today and schedule US. Concerned re: weight gain, low appetite at times. Track meal and food intake. Maintain healthy diet and stay hydrates with water. PEC - headaches: not resolved with 2 regular strength Tylenol doses, visual disturbances warnings and when to call for further evaluation. Discussed to call the service here for any emergencies/deliveries to be directed to [facility]. Reviewed when to call for any emergent care. RTO 4wks, FAS ordered Agree's to have labs done today. Visit Date: 08/23/22 Last Updated by: Ella Sagastume CNM Note author: Ella Sagastume CNM/Juany Dempsey, medical massage therapist 14.4 wk TAINA. Taking PNV. Good FM. Denies LOF, VB or abd pain. Doing well with no concerns. Does not have a good appetite due to nausea. Has not picked up her Unisom and Vitamin B6. She stays well hydrated. She has done her First screen labs, records not available yet. Has not done first trimester labs. Her partner, Pb, and mom were present for FHR. Discussed: VB warnings and when to call for further evaluation. PEC - headaches: not resolved with 2 regular strength Tylenol doses, visual disturbances warnings and when to call for further evaluation.? Staying well hydrated, drink 8-10 glasses of water per day. Encouraged to pick up operator Unisom and Vitamin B6 to help prevent nausea. Agrees to do labs tomorrow. RTO in 4 weeks. Visit Date: 08/01/22 Last Updated by: Ella Sagastume CNM The patient agreed to use of a medical massage therapist during this encounter. Scribed for ROBERT Wilson by Sarah Odonnell medical massage therapist, on at 00:00 am EST. 11.3 wk OB. Taking PNV, BASA qd. Good FM. Denies LOF, VB or abd pain. Good appetite and stays well hydrated. States her nausea is off and on. Denies vaginal itching and irritation. Discussed: PTL-LOF, VB, abd pain, ctx and when to call for further evaluation. Advised to withhold from intimacy momentarily, report any VB B6 vits TID for nausea and Unisom prn Encouraged to contact office if she has any concerns about depression. Advised to obtain her PN labs this week Staying well hydrated, drink 8-10 glasses of water per day. She is agreeable to delivering at [facility]. Will have further discussion at next visit. RTO 4wks Visit Date: 07/26/22 Last Updated by: Leatha Yung Stone Davies is 17 yo here for her insurance account representative. LMP was last week of April. US 06/25/22 at 6w1d with NAYELI 02/17/23. She had additional US 07/23/22 at 11w0d with NAYELI 02/11/23. She has h/o subchorionic bleed, nausea and fatigue. She was prescribed B6/Unisom but has not picked up from pharmacy yet. Pt has FH of diabetes and early glucose was added to her labs. Pt was advised no sweets or carbs beginning at 1999, night before she plans to have labs done and the same for her breakfast. Will schedule NT US and 1st trimester screen [place] [facility] Pt has allergy to PCN. She had Covid 06/2021 and has been vaccinated x2, no boosters. Pt BMI today is 22.4. She does not know how much she weighed before her and does not know if she has lost or gained weight. Pt was given the folder. We discussed danger signs, pelvic pain especially if unilateral and may be associated with shoulder pain and/or vaginal bleeding. She understands to call if she has either symptom. Pt was advised 24/ MD coverage and how to reach MD after hours/weekends/holidays. She is aware that delivery will take place at [facility] as well as some testing and where she is to go. We reviewed first trimester education. Pt will schedule OB PE today, labs were ordered. Pt was accompanied by her Mom and her partner, Pb. Of note: we did not discuss domestic violence questions. Pt verbalizes understanding and agrees with plan. No further questions. Exam Const Constitutional General: cooperative, healthy appearing, comfortable, no acute distress, well developed, alert and awake Assessment & Plan Assessment & Plan (1) Encounter for supervision of normal in third trimester: Code(s): Z34.93 - Encounter for supervision of normal , unspecified, third trimester Category: Medical Coding Level of Care Code [place] Diagnoses Encounter for supervision of normal in third trimester Z34.93
[2023-02-21 08:08] VITALS: BP 104/60; BMI 27.1
== END 2023-02-21 10:37 | disposition home or self-care (01) ==
LOC: HO.HWS 08:07
PROVIDERS: Visit Provider Advanced Practice Midwife
DX: Z34.93 Encounter for supervision of normal pregnancy, unspecified, third trimester (principal)
CPT/HCPCS: 59426

== ENCOUNTER → 2023-02-21 08:07 | Outpatient (BNVA) | payer OTHER, SELFPAY | PROVIDERS: Visit Provider Advanced Practice Midwife ==

== ENCOUNTER 2023-04-08 16:03 | Outpatient (AMB) | payer OTHER, SELFPAY ==
--- OUTSIDE RECORDS SUMMARY | 2023-04-08 16:05 | XMS_ITS | Continuity of Care Document ---
Author Name Unknown Organization [facility] ter Address [address] [place] [id number] Care Team Providers Care Hinging Machine Operator Name Role Phone Not on Staff, PCP Primary Care Physician Unavail able [place] [facility] [place]/23[place]23 - 02/26/[address] [address] Discharge Disposition: A-D/C Home Attending Physician: Zulema Pastor DO Admitting Physician: Zulema Pastor DO Referring Physician: Ella Sagastume CNM, I Allergies, Adverse Reactions, Alerts Substance Reaction Severity Status penicillins Active Medications acetaminophen 325 mg oral tablet 650 mg, By Mouth, Every 4 hours, PRN, (1-3), may give 325mg per patient preference and re-dose [id number] within 4 hours, if needed. Patient should only receive a total of 650mg of Acetaminophen every 4 hours., # 90 tablet, Refills 0, Tot. Refills 0... Start Date: 02/26/23 Status: Ordered Acetaminophen Tablet 650 mg, Tablet, By Mouth, Every 4 hours, PRN for Pain , Mild, (1-3), may give 325mg per patient preference and re-dose with 325mg within 4 hours, if needed. Patient should only receive a total of 650mg of Acetaminophen every 4 hours., Routine, 02/24... Start Date: 02/24/23 Stop Date: 02/26/23 Status: Discontinued Colace sodium 100 mg oral capsule 100 mg, 1, capsule, By Mouth, 2 times a day, PRN, # 60 capsule, Refills 0, Tot. Refills 0, Maintenance, Constipation, 02/26/23 10:39:00 EDT, Route to Pharmacy Electronically, [facility]/pharmacy #[id number], Partial fill upon patient request if the prescription is... Start Date: 02/26/23 Status: Ordered ferrous sulfate 325 mg oral enteric coated tablet 325 mg, 1, tablet, By Mouth, Daily, # 90 tablet, Refills 0, Tot. Refills 0, Maintenance, 02/26/23 10:40:00 EDT, Route to Pharmacy Electronically, [facility]/pharmacy #[id number], Partial fill upon patient requestif the prescription is for a schedule II opioid sweta... Start Date: 02/26/23 Status: Ordered ibuprofen 800 mg oral tablet 800 mg, By Mouth, Every 8 hours, PRN, (4-6), may give 400mg per patient preference and re-dose [id number] within 8 hours if needed. Patient should only receive a total of 800mg of Ibuprofen every 8 hours., # 30 tablet, Refills 0, Tot. Refills 0, Dina... Start Date: 02/26/23 Status: Ordered Vital Signs Most recent to oldest [Reference Range]: 1 2 3 Height 158 cm (02/26/23 9:47 AM) 158 cm (02/26/23 12:00 AM) 158 cm (02/25/23 12:00 AM) Weight 68.5 kg (02/23/23 8:36 AM) Oxygen Saturation [94-100 %] 100 % (02/26/23 12:00 AM) 99 % (02/25/23 8:00 AM) 98 % (02/25/23 12:00 AM) Pulse Rate [55-90 bpm] 79 bpm (02/26/23 9:47 AM) 90 bpm (02/26/23 12:00 AM) 82 bpm (02/25/23 8:00 AM) Body Mass Index [18.5-24.99 kg/m2] 27.44 kg/m2 *H* (02/23/23 8:36 AM) Blood Pressure [90-138/55-84 mm Hg] 103/55mm Hg (02/26/23 9:47 AM) 107/59mm Hg (02/26/23 12:00 AM) 103/61mm Hg (02/25/23 4:00 PM) Respiratory Rate [16-30 br/min] 18 br/min (02/26/23 9:47 AM) 18 br/min (02/26/23 12:00 AM) 20 br/min (02/25/23 7:30 PM) Temperature [96.8-100.4 DegF] 98.0 DegF (02/26/23 9:47 AM) 97.6 DegF (02/26/23 12:00 AM) 98.3 DegF (02/25/23 4:00 PM) Mode of Delivery (Oxygen) Room air (02/26/23 12:00 AM) Room air (02/25/23 8:00 AM) Room air (02/23/23 8:36 AM) Blood pressure sites Arm, left (02/26/23 9:47 AM) Arm, left (02/23/23 8:36 AM) Temperature Route Oral (02/26/23 9:47 AM) Oral (02/26/23 12:00 AM) Oral (02/25/23 4:00 PM) Dry Weight 68.5 kg (02/23/23 8:36 AM) Height Percentile 20.54 % 1 (02/26/23 9:47 AM) 20.54 % 2 (02/26/23 12:00 AM) 20.54 % 3 (02/25/23 12:00 AM) Height ZScore -0.82 4 (02/26/23 9:47 AM) -0.82 5 (02/26/23 12:00 AM) -0.82 6 (02/25/23 12:00 AM) Weight Percentile Per Age 80.70 % 7 (02/23/23 8:36 AM) BMI Percentile 88.09 8 (02/23/23 8:36 AM) BMI ZScore 1.18 9 (02/23/23 8:36 AM) Weight ZScore 0.87 10 (02/23/23 8:36 AM) 1Result Comment: ^~:!Percentile Source -CDC/WHO 2Result Comment: ^~:!Percentile Source -CDC/WHO 3Result Comment: ^~:!Percentile Source -CDC/WHO 4Result Comment: ^~:!ZScore Source -CDC/WHO 5Result Comment: ^~:!ZScore Source -CDC/WHO 6Result Comment: ^~:!ZScore Source -CDC/WHO 7Result Comment: ^~:!Percentile Source -CDC/WHO 8Result Comment: ^~:!Percentile Source -CDC/WHO 9Result Comment: ^~:!ZScore Source -[facility]/WHO 10Result Comment: ^~:!ZScore Source -[facility]/WHO History and physical note * Baljit SEBASTIAN, Susie Francis: PERFORM Event Display: History and Physical Hospital Authored Date: Patient: ??FAVIAN MORALES ? Age:??17 Years?Sex:??Female?:??2005?? OB Reason for Admission OB Reason for Admission Reason for admission: Induction of labor Reason for Induction: Late term LMP/EGA/NAYELI Gestational Age (EGA) and NAYELI? * Note: EGA calculated as of 02/23/2023 ?? NAYELI:??02/17/2023?EGA*:??40 weeks 6 days ? History?(0,0,0,0)?Method:??Unknown??(02/23/2023) History of Present Illness Favian is a 17yo presenting for scheduled IOL secondary to late term . She is accompanied by her partner, Pb, and her mom, Frank. Favian reports feeling well. Active baby. Occasionally notices some cramping. Denies LOF, VB. ?? Review of Systems Constitutional??- negative Heart - negative, denies chest pain Lungs - negative, denies difficulty breathing or shortness of breath Head/Neck - negative,??denies headache Eye -negative, denies vision changes GI - negative, denies constipation/diarrhea - negative, denies urinary concerns Musculoskeletal - negative ?? Physical Exam Vitals & Measurements T:??99.0?F?? HR:??79??(Peripheral)?? RR:??19?? BP:??121/74?? SpO2:??99%?? HT:??158??cm?? WT:??68.5??kg?? BMI:??27.44?? General: WNL, A&O x 3, calm, no distress Cardiovascular: WNL, RRR Respiratory: WNL, CTA bilaterally Abdomen/GI: WNL, gravid, soft, non-tender Pelvimetry: WNL Vulva: WNL, no masses, no lesions, no swelling Extremities: WNL, scant edema ?? SVE: 2/80/-2, posterior, soft vertex by Genaro's OB Assessment Baby A Baseline:130 Baseline Description:Normal, 110-160 bpm Baseline Variability:Moderate variability Accelerations:Present Deceleration:None Activity:Present Cervical Estimated Weight:2700 gm Position:Occiput anterior Membrane Status:Intact Uterine Number of Contractions per 10 minutes3 Monitor Mode, UterineExternal Cervical Cervical Dilatation2 cm Cervical Ftzguujtrl81% Station-2 Assessment/Plan Assessment:? @ 40w6d IOL for late term FHR reactive Rh pos GBS neg vertex presentation ?? Encounter for induction of labor (Z34.90):? Discussed options to begin IOL including misorprostol, cervical catheter, or both. Reviewed mechanism of action of each, monitoring, goal of cervical ripening, dosing, and anticipation of starting Pitocin eventually. Favian prefers to start with oral misoprostol. ?? admit for labor CBC, hold lavender ambulation encouraged hydrotherapy as desired regular diet VS per unit standard place IV misoprostol 50mcg PO ?? Asthma (J45.909):? History of asthma, has an inhaler that she has not used the entire , no daily medication ?? OB History History?(0,0,0,0)?No previous pregnancies history have been recorded Labs Labs Labs & Tests Down Syndrome Age Risk FTS: Age Risk: (08/05/22) Down Syndrome Scrn Risk FTS: Screening Risk: (08/05/22) Trisomy 18 Scrn Risk FTS: Screening Risk: (08/05/22) Transcribed Labs Blood Type-Transcribed Result: O (02/23/23) Group B Strep-Transcribed Result: Negative (02/23/23) Hep B Surface Antigen-Transcribed Result: Negative (02/23/23) HIV-Transcribed Result: Negative (02/23/23) Rh-Transcribed Result: Positive (02/23/23) Rubella IgG -Transcribed Result: Positive (02/23/23) Syphilis screen-Transcribed Result: Negative (02/23/23) Varicella-Transcribed Result: Equivocal (02/23/23) Problem List Active Active Problem List : (Obstetric) (02/23/23) Procedure/Surgical History No qualifying data available. Home Medications No qualifying data available. Allergies penicillins Family History No family history recorded. Plan OB Plan Infant Feeding Plan: Breast milk (02/23/23) Labor Coping Mechanisms: No pharmacological interventions (02/23/23) Hospital Progress note * Lis De La Cruz RN: PERFORM, SIGN, VERIFY Event Display: Progress Note Hospital Authored Date: [id number] Patient: FAVIAN MORALES Age: 17 years Sex: Female : 2005 Associated Diagnoses: None Author: Jono SEVERINO, Lis pt A+Ox4. VSS. bleeding stable. voiding independently. pain controlled with current pain regimen. pt discharged this shift. all discharge instructions completed with pt and FOB. aware of medications to be picked up at pharmacy. educated on next dose for medications. pt discharged with all belongings and in car seat. Findings Problem Related to Alteration in Comfort : Alteration in Comfort/new 02/26/2023 12:00 EDT Alteration in Comfort Related to Other: vaginal delivery Goals & Outcomes: Comfort Pt will report acceptable level of comfort & pain control, Pt will demonstrate necessary skills to manage pain, Non-verbal indicators will indicate comfort/pain control Interventions Implemented: Comfort Assess pain using appropriate pain scale/tools, Assess aggravating factors & prevent them accordingly, Assess alleviating factors & promote them accordingly Goals/Interventions, Comfort Yes Comfort, Problem Start 02/23/2023 17:09 Reviewed plan with, Comfort Patient Patient Progression, Comfort Resolved problem Comfort, Problem Ongoing Yes Comfort, Problem Resolved 02/26/2023 12:00 02/26/2023 8:00 EDT Alteration in Comfort Related to Other: vaginal delivery Goals & Outcomes: Comfort Pt will report acceptable level of comfort & pain control, Pt will demonstrate necessary skills to manage pain, Non-verbal indicators will indicate comfort/pain control Interventions Implemented: Comfort Assess pain using appropriate pain scale/tools, Assess aggravating factors & prevent them accordingly, Assess alleviating factors & promote them accordingly Goals/Interventions, Comfort Yes Comfort, Problem Start 02/23/2023 17:09 Reviewed plan with, Comfort Patient Patient Progression, Comfort Pt progressing according to plan Comfort, Problem Ongoing Yes . * Jacqueline Carrero RN: PERFORM, SIGN, VERIFY Event Display: Progress Note Hospital Authored Date: Patient: FAVIAN MORALES Age: 17 years Sex: Female : 2005 Associated Diagnoses: None Author: Jacqueline Carrero RN Findings Problem Related to Alteration in Comfort : Alteration in Comfort/new 02/25/2023 19:00 EDT Alteration in Comfort Related to Other: vaginal delivery Goals & Outcomes: Comfort Pt will report acceptable level of comfort & pain control, Pt will demonstrate necessary skills to manage pain, Non-verbal indicators will indicate comfort/pain control Interventions Implemented: Comfort Assess pain using appropriate pain scale/tools, Assess aggravating factors & prevent them accordingly, Assess alleviating factors & promote them accordingly Goals/Interventions, Comfort Yes Comfort, Problem Start 02/23/2023 17:09 Reviewed plan with, Comfort Patient Patient Progression, Comfort Pt progressing according to plan Comfort, Problem Ongoing Yes . P#1. I/E: as per plan of care. Pt is resting comfortably throughout the night. A/Ox3. Lungs clear bilater. Bowel sounds +x4 quads. Abdomen soft, non-tender, non-distended. Passing flatus. Fundus firmand -1. Pt reports having mild rubra lochia with no clots. Voiding without difficulty. OOB ad abi and is ambulating freq in the room. Pain well relieved with Tylenol 650mg PO and Motrin 800mg PO as ordered/needed. Pt is occasionally during the day, but sts that prefers to formula feed at night. Pt started pumping and was able to give infant 13mls of pumped breastmilk. Pt educated on the importance of pumping every 3 hrs, if not . Pt verbalized understanding. FOB is staying with the pt and is helping with care. Pt sts that has sufficient amt of pads and underwear and is aware to call with any questions or concerns. Will continue to monitor and medicate as needed. * Lexie Andrews CNM: PERFORM Event Display: Progress Note Hospital Authored Date: [id number] Patient: ??FAVIAN MORALES ? Age:??17 Years?Sex:??Female?:??2005?? Subjective In to see patient on day one Baby girl well latched and bottle of milk at bedside s/p learning how to pump Feeling well with cramping and perineal pain well controlled by ibuprofen and acetaminophen FOB at bedside for support ?? Review of Systems General: No fevers or chills Neuro: No headache, changes in vision CV: No chest pain Pulmonary: no shortness of breath GI: No N/V. : Lochia??< menses Ext: No swelling, or redness of the legs Physical Exam Vitals & Measurements T:??98.3?F?? HR:??68??(Monitored)?? RR:??20?? BP:??103/61?? SpO2:??99%?? HT:??158??cm?? WT:??68.5??kg?? BMI:??27.44?? General: Awake, alert HEENT: Within normal limits Breast: Not engorged, nipples intact and everted CV: RRR, no murmurs, rubs or gallops Lung: CTAB, no wheezes, crackles, or rhonchi Abdomen: Fundus is firm??@ umbilicus -1 Perineum: 2nd degree laceration well approximated, no erythema, no edema Ext: No edema of bilateral lower ext. Assessment/Plan care following vaginal delivery (Z39.2):??Meeting all milestones on day one Breast feeding with some formula supplementation ??- excellent latch and milk supply observed PPBCM: undecided PP Follow up: plans [place] ?? Asthma (J45.909):? History of asthma, has an inhaler that she has not used the entire , no daily medication ?? OB Summary : 1 . Baby A - Weight: 3.205 kg Baby A - Date, Time of : 02/24/23 05:34:00 Baby A - Gender: Female Baby A - Complications: Other: nuchal x1 EGA at Documented Date, Time: 41 weeks Weight at Delivery Baby A - Delivery Type: Vaginal Delivery Complications: None OB History History?(0,0,0,0)?No previous pregnancies history have been recorded Active Problem List Active Problem List : (Obstetric) (02/23/23) Home Medications No qualifying data available. Medications Medications (6) Active SCHEDULED: (0) CONTINUOUS: (1) Lactated Ringers (1000 mL) Cont IV 1,000 mL (LR 1,000 mL) ??1,000 mL, IV Infusion, 125 mL/hr PRN: (5) Acetaminophen 325 mg Tablet (Acetaminophen Tablet) ??650 mg, By Mouth, Every 4 hours Calcium Carbonate 500 mg (Calcium 200 mg) Chewable Tablet (Tums 500 mg Tablet) ??1,000 mg 2 tablet,Chew, 3 times a day Docusate Sodium 100 mg Capsule (Colace sodium 100 mg oral capsule) ??100 mg 1 capsule, By Mouth, 2 times a day Ibuprofen 800 mg Tablet (Ibuprofen Tablet) ??800 mg, By Mouth, Every 8 hours Ondansetron 2mg/mL Inj (2mL Vial) (Ondansetron Inj) ??4 mg, IV Push, Every 8 hours Lab Results Test Name Test Result Date/Time Hgb 10.2 Gm/dL 02/23/2023 10:14 EDT Hct 31.3 % 02/23/2023 10:14 EDT Note * Lis De La Cruz RN: PERFORM Event Display: Discharge/Transfer Note Hospital Authored Date: [id number] Nursing Discharge Note Entered On: 02/26/2023 12:32 EDT Performed On: 02/26/2023 12:31 EDT by Lis De La Cruz RN Nursing Discharge Note 2 Discharge Time : 02/26/2023 12:15 EDT Discharge Level of Care at Discharge : Home/Custodial/Foster Care Patient Left Unit Via : Ambulatory Patient Accompanied Off Unit with : Significant other DC Instructions Provided & Signed by Pt : Yes Patient Understands D/C Instructions : Yes Verbalized Understanding of D/C Plan By : Patient, Significant other Patient Instructions Discharge Signed : Yes Did Pt have Specialty Bed or Wound Vac : No Jono SEVERINO, Lis - 02/26/2023 12:31 EDT * Olman SEBASTIAN, Maggi Desir: PERFORM Event Display: Discharge/Transfer Note Hospital Authored Date: [id number] Patient: ??FAVIAN MORALES ? Age:??17 Years?Sex:??Female?:??2005?? Admit Date Admission Date: 02/23/2023 Discharge Date 02/26/2023 OB Reason for Admission OB Reason for Admission Reason for admission: Induction of labor Reason for Induction: Late term [facility] Hospital Course Pt was admitted on??02/23 in active labor, and progressed appropriately. She delivered vaginally on??02/24 and had a vaginal and labial lacerations that were repaired. Her was uncomplicated. Her course was remarkable for back pain at epidural site. She is meeting all PP milestones and feels ready to be discharged today.??Plan for discharge is routine.? Subjective: Feeling??well overall after vaginal delivery. Some cramping, but gets cramping relief from ibuprofen and tylenol. Reports mild pain of perineum and is using peribottle to good effect. Denies??dizziness, lightheadedness. Lochia diminishing and no large clots - ?? like a heavy period .Voiding and ambulating without difficulty;??has had??BM. Denies LE pain, warmth, redness, swelling. and pumping; Denies nipple cracking/bleeding,??some engorgement. Denies??overwhelming feelings of depression/anxiety.??Will have??support from family and partner??at home. Planning??condoms or progesterone only options??for PP BCM. Objective/Physical Exam on Day of Discharge Vitals & Measurements T:??98.0?F?? HR:??79??(Peripheral)?? RR:??18?? BP:??103/55?? SpO2:??100%?? HT:??158??cm?? WT:??68.5??kg?? BMI:??27.44?? Constitutional: -Normal affect Breast: -WNL Abdomen: -Soft, nontender, nondistended -Fundus firm, midline, -2 Perineum: -intact, no edema -mild lochia rubra Extremities: -no swelling, no tenderness Assessment/Plan/Discharge Diagnosis care following vaginal delivery (Z39.2):?? day 2 follow normal SVB. Meeting milestones. Normal exam and pumping Unsure about control, may use condoms, discussed progesterone only options that will lessen risk of under production of milk Reviewed discharge instructions, including normal involution, warning signs, signs of PPD, and how/when to contact CNM or seek medical attention. Follow up at routine outpatient visit in 3weeks. Appointment card given. Discharge home today. ?? Asthma (J45.909):??Follow up with PCP per symptoms ?? Care: Routine PP??care Future Appointments follow up with Tara per patient request Delivery Summary Delivery Summary Maternal Information ??Labor Information ?Baby A ?Labor Onset Methods: ??Induced ?Induction Methods: ??Misoprostol ??Delivery Information ?Gestational Age at Delivery: ??41 weeks ?Anesthesia OB: ??Epidural ??02/24/23 08:15:55, Epidural ??02/23/23 21:51:46 ?Obstetrical Laceration: ??Vaginal laceration, Labial laceration ?Vaginal Laceration: ??Right ?Vaginal Laceration Repair: ??Vicryl suture ?Labial Laceration: ??Right ?Anesthesia for Repair: ??Epidural, Local ?Delivery Complications: ??None ?Blood Loss(ml): ??300 mL ? Baby A ??Delivery Information ?Delivery Type: ??Vaginal ?Date, Time of : ??02/24/23 05:34:00 ? Position: ??Supine ?Foot of bed removed: ??No ?Delayed Cord Clamping: ??Yes ?Placenta Delivery Date/Time: ??02/24/23 05:43:00 ?Placenta Delivery Method: ??Spontaneous ?Placenta Appearance: ??Normal ?Placenta to Pathology: ??No ??Care Team ?Delivery CNM: ??Twin CNM, Nalini M ?dev manager #1: ??Jesus SEVERINO, Rosa ?dev manager #2: ??Laura Garrett ?Upholsterer Outside: ??Pedro JON, Trini Underwood ?Anesthesiology Attending: ??Donald JON, Davy Camara ??Labor Information ?ROM Date, Time: ??02/24/23 05:17:00 ?ROM to Delivery Total Time: ??17 min ?3rd Stage, Length of Labor: ??9 min ? monitoring: ??External monitor ?? Information ? Outcome: ??Live ? Position: ??Occiput anterior ? Weight: ??3.205 kg ? Score 1 minute: ??8 ? Score 5 minute: ??9 ? Score 10 minute: ??9 ?Transferred To: ?? Care area with Family ?Umbilical Cord Description: ??3 vessel cord ? Complications: ??None ?Gender: ??Female ? Procedures Performed Epidural Vaginal delivery ?? Contraception Condoms ? Feeding Method No Results * Jono SEVERINO, Lis: PERFORM Event Display: Patient Education/Instruction Authored Date: [id number] Inpatient Adult Discharge Instructions [address] [id number] Name: FAVIAN MCGARRY : 2005 Visit: 02/23/2023 08:03:00 Current Date: 02/26/2023 10:58 Account: [id number] Inpatient Adult Discharge Instructions We would like to thank you for allowing us to assist you with your healthcare needs. The following includes patient education materials and information regarding your injury/illness. Our entire staffstrives to provide an excellent experience for our patients and their families. PLEASE ENSURE YOU FOLLOW-UP PER THE INSTRUCTIONS BELOW! ?? YOUR OPINION IS IMPORTANT TO US! Please complete the survey you may receive by mail or email. Your feedback will be used to make improvements to the healthcare experiences of our patients and their families. Surveys are administered by [employer]. ?? If further treatment with your primary care physician or another doctor is recommended, it is important for you to keep the appointment. Call your primary care physician or return to the Emergency Department immediately if your condition worsens, fails to improve, or new symptoms develop. If you need to find a doctor, you can call [facility] for a referral at [phone] or toll free at [phone]) or log in to [email or web address] ?? You can view and manage your care through the patient portal or by using a health care gabriela of your choosing. [employer] is a website that allows you to securely view your medical information including your hospital discharge summary, office visit summaries, medications and follow-up visits. You can also request appointments, renew medications, and request access to your medical information using a health care gabriela of your choosing, or just ask a question. You can enroll at [email or web address] or register during your next office visit. You have been discharged from [facility], Patient Care Unit: [facility]. If you have any questions regarding these instructions after you leave, please call us and we will be happy to assist you. [facility] Your Care Team Attending Physician Zulema Pastor DO Discharging Providers Maggi Thurman CNM Reason for Admission Induction of labor Your Diagnosis Encounter for induction of labor Asthma care following vaginal delivery Tests Performed Below is a partial list of the tests performed during your hospitalization. You may have had other tests and procedures not included in this list. Please discuss all test results with your provider. CBC Type and Screen Primary Care Provider Not on Staff, PCP Advance Directive Health Care Proxy on File No Patient refuses to discuss Discharge Vitals Temperature: 98 DegF Height: 158 cm Pulse Rate: 79 bpm Weight: 68.5 kg Respiratory Rate: 18 br/min Body Mass Index:??27.44 kg/m2??High Systolic Blood Pressure: 103 mm Hg Body surface area: 1.73 Diastolic Blood Pressure: 55 mm Hg ?? Oxygen Saturation: 100 % ?? Studies Pending All tests and labs ordered during this hospital stay have been completed unless listed below. Please discuss all pending results with your provider listed above in these instructions. ?? Hold Lavender Tube (BB) What to do next Instructions From Your Doctor Discharge Orders Instructions from your Care Team Discharge Care Instructions for the New Mom?? Please take a few moments to read through these helpful instructions before you leave the hospital.??Your nurse will be glad to answer any questions you may have. ??You can also find this and more information throughout the purple??Becoming a Family??booklet,??[facility] New Beginnings Guide??and the?? Consultation Services Guide??given to you after the of your baby. ??You may also phone our nurses stations if you have further questions. ??[facility]: ??First Floor ([phone]), Second Floor ([phone]). ?? Please call your provider if you have any questions or concerns ??before your next appointment. For ongoing support??please?Like?us on our Facebook page?[facility] Beginnings?and sign up for our email newsletter at??[email or web address]. ??News and information will be sent to you??until your baby???s third birthday. Instructions for the New Mother Activity:?? For the next 2 weeks at home?no heavy lifting, avoid unnecessary stair climbing, and no driving (especially if you are taking medicine that may make you sleepy or feel that you are sleep deprived). ?? For the next 4-6 weeks - no tampons, no douches, no sexual intercourse. Use your erma bottle to rinse your perineum until your vaginal flow stops. ??If you have stitches in your bottom, they generally dissolve within 7-10 days. ??Apply Tucks/witch nikole pads until your soreness subsides. ??Use your bathroom at home every 3 to 4 hours, rinse, and change your pads. Warm showers feel great on achy muscles, sore backs and sore bottoms. Exercise: Walking is the best form of exercise. ??Wait until your follow up appointment with your provider in4-6 weeks before engaging in more strenuous activity. Diet: Drink plenty of fluids to avoid constipation and to help support your recovery. Eat plenty of iron rich foods such as red meat, iron fortified cereals like Total and Cream of Wheat, raisins, prunes, greens and spinach. ??These will help to build your blood count back up as all women lose some blood after delivery. ??Also add foods rich in Vitamin C such as strawberries, oranges, papayas, kale and gil peppers. Continue to take your vitamins if you are . ??If you are not follow the instructions of your provider. ??If you were prescribed iron supplements such as ferrous sulfate, it is important to continue these until your doctor or high school social studies teacher tells you to stop. Breast Care for Nursing Mothers: Wear a comfortable fitting, supportive nursing bra. ??An underwire bra is not recommended. Express drops of breast milk and rub over your nipples and areola (brown area) before and after each feeding to protect and heal sensitive skin and then air dry your nipples. ??If you are experiencing any soreness, you may purchase nipple cream such as TenderCare or Lansinoh. ??Use it in the following manner: ??finish your feeding or pumping session, self-express colostrum onto your nipple and air dry, apply the nipple cream to the nipple and areola. ??Use only small amounts for best results. If you are having difficulty getting the baby to latch onto the breast due to swelling of the areola, try applying pressure with your fingers for a couple of minutes above and below your nipple and walk your fingers outward softening the area and pushing the swelling away. ??This technique is knownas reverse pressure softening. ??For demonstrations of this and other techniques such as the [place] Hand Expression technique, please refer to the resources section of the Consultation Services Guide that you received from services.?? When your milk first comes in, usually within 3 to 5 days after delivery, you may experience engorgement. ??Your breasts may become swollen and very tender. ??Cold compresses work great to help with discomfort and reduce swelling. It will get better in a couple of days. ??Continue to nurse your baby frequently. ?? Call [facility]???s Consultation Service at [phone], press 1 to schedule an outpatient appointment or press 3??and a proposal consultant will return your call that day or the next if you call after 3pm. Breast Care for Bottle Feeding Mothers: Engorgement may occur within the first week after delivery. ??Your breasts may become hard and verytender. ??A cool compress of cleaned raw green cabbage leaves applied to the breast and changed as leaves wilt has been proven helpful for many women. ??Ice packs or frozen bags of peas also work nicely to ease the discomfort. ??The soreness will only last a couple of days. Keep your back turned to the water while showering to decrease breast stimulation. Wear a snug fitting bra such as a sports bra. Control: Your doctor or high school social studies teacher will discuss control methods with you when you are discharged from thespital or at your checkup. ??Be sure to let your provider know if you are . You had a Paragard IUD placed on . ??This control method is effective for 10 years. You had a Liletta placed on . ??This control method is effective for up to 5 years. You had a Nexplanon placed on . ??This control method is effective for up to 3 years. You received a Depo Provera injection on . ??This control method is effective as longas you repeat it every 3 months.?Schedule your next dose before . You have a prescription for control pills . ??It is important to take a pill everyday at around the same time of day for effective control protection. ?? Pain Management: Cramping after is common and increases in strength with each baby you have. ??If you experience painful cramps, and have no allergies to acetaminophen (Tylenol) or ibuprofen (Motrin), you may continue to take these medications as you did in the hospital. ??Ibuprofen is also helpful with back aches following epidurals, perineal pain following a vaginal delivery, and moderate incisional pain after a section or a tubal ligation. ?? If you experience gas distention, especially after surgery, you may take an over the counter medication called simethicone. ??Take these chewable tablets 4 times a day as needed and directed on the package. ??Keep moving. ??Walking or rocking in a chair, will help to move the gas along. ??Debi tea made with heated debi alysa (instead of water) and a tea bag, stirred to dissolve carbonation (bubbles) is a helpful drink to soothe a gassy stomach. Warning Signs of a Problem to Notify Your Doctor or Supervisor Audit Clerks of: Heavy vaginal bleeding?which is??soaking a pad every hour??with bright red blood. Passing blood clots the size of an egg or larger. An incision that is not healing. A temperature greater than or equal to 100.4 especially if accompanied by any of the following symptoms?painful, frequent urination; extreme back or flank pain; lower belly pain with a foul smell to your vaginal flow; a red hard hot area on your breast. ?? Severe headache that does not go away after taking acetaminophen or ibuprofen. ?? A headache that changes your vision, including seeing spots or blurring. Right sided upper abdominal pain along the rib cage area. Pain in your legs that is warm and tender to the touch. depression signs may include?loss of interest in your baby, weepiness, difficulty focusing, weight loss with no appetite, exhaustion, feeling overwhelmed or anxious, feelings??of despair, or thoughts of harming yourself or your baby. ??These symptoms are important and should be discussed with your doctor or high school social studies teacher. depression may develop over a period of time and needs prompt medical attention. ??Do not suffer in silence. ??In both the??Becoming a Family??booklet and the??[facility]??New Beginnings Guide??there is a screening tool used to identify women at risk, called the [place] Scale which you have taken in the office prior to delivery and again during your ho spital stay. ??Three to four weeks after your delivery, and before your check with your provider, take this test and share your results with your provider. ??Be sure to mention any score of 10 or more. ?? Many women, and even some partners, may experience the?baby blues?? . ??This is a state of feeling overwhelmed and weepy. ??Discomfort from childbirth, hormonal changes, exhaustion, changes to your body and lifestyle are a few of the things that contribute to the highs and lows new parents go through. ??Don???t be afraid to ask your partner or family and friends for some help at home so you can get some rest and a few minutes to yourself. ??The blues will quickly pass. Personal Safety: Every person has the right to feel safe at home and live free from physical or emotional harm. ??Ifyou have suffered mental or physical abuse at home, you are not alone. ??There is help. ??Please call [facility] or the [facility] Program at [phone]. You Need to Schedule the Following Appointments Follow Up with??[facility] When:??Within 1-2 day: call to discuss follow up visit Why: need follow up for 3 weeks Discharge Medications FAVIAN MORALES :2005 Visit Date:02/23/2023 Medications: Please continue your medications until treatment is completed or stopped by your provider. Medications not listed below should be discontinued. Discuss any questions related to medications with your provider. What How Much When Instructions Next Dose New Acetaminophen (acetaminophen 325 mg oral tablet) 650 Milligram Oral Every 4 hours as needed for Pain , Mild (1-3), may give 325mg per patient preference and re-dose with 325mg within 4 hours, if needed. ?? Patient should only receive a total of 650mg of Acetaminophen every 4 hours. ?? Pickup at [facility]/pharmacy #[id number] New Docusate (Colace sodium 100 mg oral capsule) 1 capsule Oral Twice a day as needed for Constipation Pickup at [facility]/pharmacy #2070 New Ferrous Sulfate (ferrous sulfate 325 mg oral enteric coated tablet) 1 tab(s) Oral Daily Pickup at [facility]/pharmacy #2070 New Ibuprofen (ibuprofen 800 mg oral tablet) 800 Milligram Oral Every 8 hours as needed for Pain , Moderate (4-6), may give 400mg per patient preference and re-dose with 400mg within 8 hours if needed. ?? Patient should only receive a total of 800mg of Ibuprofen every 8 hours. ?? Pickup at [facility]/pharmacy #2070 [id number] [address], [place] [id number] [phone] Test Results Below is a partial list of the most recent Laboratory test results done prior to this discharge. You may have had other tests and procedures not included in this list. Please discuss all test resultswith your provider. CBC (02/23/2023) ???WBC - 9.1 k/mm3???RBC - 3.66 m/mm3???Hgb - 10.2 Gm/dL???Hct - 31.3 %???MCV - 85.5 femtoliters???MCH - 27.9 pg???MCHC - 32.6 g/dL???Platelet Count - 153 k/mm3???RDW-SD - 44.1 femtoliters???MPV - 13.4 femtoliters???Nucleated RBC (Automated) - 0.0 #/100 WBC'S???Abs. NRBC - 0.0 k/mm3 Type and Screen (02/23/2023) ???Blood Type - O Positive???Antibody Screen - Negative Allergies (NKA means No Known Allergies) penicillins Problems Active Problems??(1) ?? Education Materials Below is the list of Educational Leaflet Providered with your Discharge Instructions. Valuables and Belongings I fully understand and agree that [facility] accepts no responsibility for all my personal property including clothing, toilet articles, radios, jewelry, dentures, hearing aids, rings, money, or any other property that is in my possession or is brought to me after admission. I understand certain valuables may be placed in a hospital safe for a short period of time. I understand that the hospital is not liable for loss or damage due to accident, fire, or other natural occurrence while said property is in the safe. I accept full responsibility for any personal property that I keep with me, and will not hold the hospital responsible in case of loss or disappearance. I acknowledge that i have been encouraged to send valuables and belongings home. ?? No Valuables/Belongings: No valuables/belongings present Review of Valuable and Belonging List: With patient Date for Pt to Sign Valuables/Belongings: 02/24/23 09:04:00 ?? Other Discharge Information ? Pulmonary Rehab Status?? Pulmonary Rehab Discharge Status?? Respiratory Rate: 18 br/min ? Common Emergency Awareness Tips IS IT A STROKE? Act FAST and Check for these signs: FACE Does the face look uneven? ARM Does one arm drift down? SPEECH Does their speech sound strange? TIME Call at any sign of stroke ?? Heart Attack Signs Chest discomfort: Most heart attacks involve discomfort in the center of the chest and lasts more than a few minutes, or goes away and comes back. It can feel like uncomfortable pressure, squeezing, fullness or pain. Discomfort in upper body: Symptoms can include pain or discomfort in one or both arms, back, neck, jaw or stomach. Shortness of breath: With or without discomfort. Other signs: Breaking out in a cold sweat, nausea, or lightheaded. Remember, MINUTES DO MATTER. If you experience any of these heart attack warning signs, call to get immediate medical attention! ?? Smoking can increase your chances of developing chronic health problems and can cause harmful effects to other family members in your house. If you smoke, you are strongly encouraged to quit. Please call [employer] [facility] at [phone] or [phone] ([phone]) or log in to [email or web address] for referrals to smoking cessation programs. ?? 754 Suicide & Crisis Lifeline is available 27/01 if you or someone you know needs to find a reason to keep living. By calling 801 you'll be connected to a skilled, trained counselor at a crisis center in your area. INPATIENT DISCHARGE INSTRUCTIONS SIGNATURE PAGE FAVIAN MORALES Location:[facility] Registration Date and Time:02/23/2023 08:03 EDT Primary Care Physician: Not on Staff, PCP Attending Physician: Zulema Pastor DO, I FAVIAN MORALES, have received the above patient education materials/instructions and haveverbalized understanding. If ambulance or transport services are being used I further acknowledge being given a choice of service. ?? If you need to contact me, please call me at this number: . Patient/Weapons Officer Name: Patient/Weapons Officer Signature: Relationship to Patient: Witness Name/Signature: Date: * Lis De La Cruz RN: PERFORM, SIGN, VERIFY Event Display: Patient Education Handout Authored Date: [id number] * Leila Kaiser RN: PERFORM Event Display: Care Team Progress Note Authored Date: [id number] Patient: ??FAVIAN MORALES ? Age:??17 Years?Sex:??Female?:??2005?? Subjective consult for 17 y.o., , 41 wks at > 24 h post VD. Assessment/Plan Mother is mostly formula feeding, states also , states going well but too tired for teaching/assistance. Requesting consult tomorrow. Will provide pump, booklet given. ?? MERE Degroot, [facility] OB Summary : 1 . Baby A - Weight: 3.205 kg Baby A - Date, Time of : 02/24/23 05:34:00 Baby A - Gender: Female Baby A - Complications: Other: nuchal x1 EGA at Documented Date, Time: 41 weeks Weight at Delivery Baby A - Delivery Type: Vaginal Delivery Complications: None OB History History?(0,0,0,0)?No previous pregnancies history have been recorded Active Problem List Active Problem List : (Obstetric) (02/23/23) Home Medications No qualifying data available. Medications Medications (6) Active SCHEDULED: (0) CONTINUOUS: (1) Lactated Ringers (1000 mL) Cont IV 1,000 mL (LR 1,000 mL) ??1,000 mL, IV Infusion, 125 mL/hr PRN: (5) Acetaminophen 325 mg Tablet (Acetaminophen Tablet) ??650 mg, By Mouth, Every 4 hours Calcium Carbonate 500 mg (Calcium 200 mg) Chewable Tablet (Tums 500 mg Tablet) ??1,000 mg 2 tablet,Chew, 3 times a day Docusate Sodium 100 mg Capsule (Colace sodium 100 mg oral capsule) ??100 mg 1 capsule, By Mouth, 2 times a day Ibuprofen 800 mg Tablet (Ibuprofen Tablet) ??800 mg, By Mouth, Every 8 hours Ondansetron 2mg/mL Inj (2mL Vial) (Ondansetron Inj) ??4 mg, IV Push, Every 8 hours Patient Care team information Care Team Personnel Name: Not on Staff, PCP Position: [facility] Physician (General Medicine) Member Role: PCP Name: Lis De La Cruz RN Position: [facility] OB RN Member Role: Patient Care Provider Name: Mariela Carter RN Position: [facility] OB RN Member Role: Patient Care Provider Care Team Related Persons Name: FRANK CHANG Address: [address] [place] [address] Name: FAVIAN MORALES GIRL Address: [address] Address: home [address] [place] [address] [place]
--- OUTSIDE RECORDS SUMMARY | 2023-04-08 16:05 | XMS_ITS | Continuity of Care Document ---
Author Name Unknown Organization [facility] Address [address] [place] [id number]- Care Team Providers Care Clinical Director Name Role Phone Not on Staff, PCP Primary Care Physician Unavail able Encounter [facility] Date(s): 02/05/23 - 03/07/[facility] [address] [place] [id number] Allergies, Adverse Reactions, Alerts Substance Reaction Severity Status penicillins Active Medications acetaminophen 325 mg oral tablet 650 mg, By Mouth, Every 4 hours, PRN, (1-3), may give 325mg per patient preference and re-dose [id number] within 4 hours, if needed. Patient should only receive a total of 650mg of Acetaminophen every 4 hours., # 90 tablet, Refills 0, Tot. Refills 0... Start Date: 02/26/23 Status: Ordered Colace sodium 100 mg oral capsule 100 mg, 1, capsule, By Mouth, 2 times a day, PRN, # 60 capsule, Refills 0, Tot. Refills 0, Maintenance, Constipation, 02/26/23 10:39:00 EDT, Route to Pharmacy Electronically, [facility]/pharmacy #[id number], Partial fill upon patient request if the prescription is... Start Date: 02/26/23 Status: Ordered ferrous sulfate 325 mg oral enteric coated tablet 325 mg, 1, tablet, By Mouth, Daily, # 90 tablet, Refills 0, Tot. Refills 0, Maintenance, 02/26/23 10:40:00 EDT, Route to Pharmacy Electronically, [facility]/pharmacy #[id number], Partial fill upon patient requestif the prescription is for a schedule II opioid sweta... Start Date: 02/26/23 Status: Ordered ibuprofen 800 mg oral tablet 800 mg, By Mouth, Every 8 hours, PRN, (4-6), may give 400mg per patient preference and re-dose [id number] within 8 hours if needed. Patient should only receive a total of 800mg of Ibuprofen every 8 hours., # 30 tablet, Refills 0, Tot. Refills 0, Dina... Start Date: 02/26/23 Status: Ordered Patient Care team information Care Team Personnel Name: Not on Staff, PCP Position: S Physician (General Medicine) Member Role: PCP Care Team Related Persons Name: FRANK CHANG Address: home [address] [place] [address] Name: GASPER PROCTOR Address: [id number] Address: [address]
--- NOTE | 2023-04-08 16:14 | A.OFFVISPN_ITS ---
Intake Vital Signs 04/08/23 16:17 Height 5 ft 3 in Weight 125 lb BMI 22.1 BP 100/64 Intake Visit Reasons: 6 week PP Intake Note: 02/24/23 Female (Anastasiya Scott) 7lb 1 oz EPDS 4 The patient agreed to use of a medical records specialist during this encounter. Scribed for ROBERT Wilson by Sarah Odonnell medical records specialist, on 04/08/2023 at 4:23 pm EST. Shank Rander: Shank Rander Present (Lynette) Allergies penicillin V Allergy (Unknown, Verified 04/08/23 16:18) Hives Penicillins [PENICILLINS] Allergy (Unknown, Verified 04/08/23 16:18) ANAPHYLAXIS [facility] Medical History (Updated 02/11/23 @ 00:00 by Adelaida Perry) Encounter for supervision of normal in third trimester COVID-19 Surgical History No pertinent past surgical history Family History Mother No problems noted. Father No problems noted. 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 Current occupational exposures/hazards: No Female Reproductive History Menstrual Age of Menarche: 11 Total pregnancies: 1 Full term: 1 Number of Living Children: 1 History History 1 Elective abortions 0 Para 0 Spontaneous abortions 0 Hx # Term Pregnancies 1 Ectopic pregnancies 0 Hx # Pregnancies 0 Multiple births 0 Questionnaire History History : 1 [place] Depression [place] Depression Scale I have been able to laugh and see the funny side of things: As much as I always could I have looked forward with enjoyment to things: As much as I ever did I have blamed myself unnecessarily when things went wrong: Not very often I have been anxious or worried for no reason: No, not at all I have felt scared of panicky for no very good reason at all: No, not so much Things have been getting on top of me: No, most of the time I have coped quite well I have been so unhappy that I have had difficulty sleeping: No, not at all I have felt sad or miserable: Not very often I have been so unhappy that I have been crying: No, never The thought of harming myself has occurred to me: Never 4 Visit NAYELI Calculator Estimated Delivery Date Method Current WG Current Estimate 02/17/23 Ultrasound #1 47w 1d Other Estimates 02/07/23 LMP (Uncertain) 48w 4d 02/11/23 Ultrasound #2 48w 0d Expected Delivery Route/Plan Specific Issues/Plans G 1 P EDC: 02/17/23 Problem List: Teen . FH DM: H/o subchorionic bleed nausea-B6 and Unisom, counseled re: small freq. meals and fluid intake EPDS=11, no #11, 28wk=11 28w cbc- 10.9/32.7-rx iron Varicella non immune-consider pp vaccination. NT: nl First trimester screen: FAS: nl scan, marginal cord insertion. 3rd trimester US 20% growth, repeat study on 02/10/23... WIC: enrolled CBE:advised Vaccination status: COVID: 2 boosters Tdap: given 12/27/22 Flu: pt. informed/declined-pt. reports mom did not want her to have this Social hx: MARK[place]. Lives with mom, and 4 siblings. 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 Labor support: FOB plan: control: Note author: Ella Sagastume CNM/Letitia, medical records specialist She is here for 6 week PPV 02/24/23 . Delivery went well. She is doing well with no concerns. Baby Anastasiya Scott (female) 7lb 1 oz is doing well and growing well. She is breast and bottle feeding with no issues. Taking PNV. EPDS=4 She denies any abnormal bleeding or urinary sx. She denies any depression. She denies any itching and irritation. Denies sexual intercourse since giving . Discussed: BC options including OCP, Depo, Nexplanon, IUD and condoms. She opts to absten bhupendra for now. Can return to light exercise including post- and core strengthening exercises. Maintain a healthy diet. She will RTO in one year for AG. OB Visit Log Initial Weight: 120 lb Date -?-?-?-?-?-?-?-?-?-?-?-?- EGA Weight Gest Week Fundal Ht Present FHR move Efface % Edema BP PrePreg We Weight GTT -?-?-?-?-?-?-?-?-?-?-?-?- Glucose LV Protein Blood Type 07/26/22 -?-?-?-?-?-?-?-?-?-?-?-?- 10w 4d 127 lb (+7 lb) 127 lb -?-?-?-?-?-?-?-?-?-?-?-?- 08/01/22 -?-?-?-?-?-?-?-?-?-?-?-?- 11w 3d 126 lb (+6 lb) 11 160 active 92/58 126 lb -?-?-?-?-?-?-?-?-?-?-?-?- 08/23/22 -?-?-?-?-?-?-?-?-?-?-?-?- 14w 4d 125 lb (+5 lb) 14 150 106/68 125 lb -?-?-?-?-?-?-?-?-?-?-?-?- 09/24/22 -?-?-?-?-?-?-?-?-?-?-?-?- 19w 1d 130 lb (+10 lb) 19 150 active 98/54 1 30 lb -?-?-?-?-?-?-?-?-?-?-?-?- 10/29/22 -?-?-?-?-?-?-?-?-?-?-?-?- 24w 1d 137 lb (+17 lb) 25 150 active 90/60 1 37 lb -?-?-?-?-?-?-?-?-?-?-?-?- 11/26/22 -?-?-?-?-?-?-?-?-?-?-?-?- 28w 1d 140 lb (+20 lb) 26.5 150 active 100/54 140 lb -?-?-?-?-?-?-?-?-?-?-?-?- 12/12/22 -?-?-?-?-?-?-?-?-?-?-?--?- 30w 3d 141 lb (+21 lb) 31 150 active 100/62 141 lb -?-?-?-?-?-?-?-?-?-?-?-?- 12/27/22 -?-?-?-?-?-?-?-?-?-?-?-?- 32w 4d 142 lb (+22 lb) 31 140 active 104/68 142 lb -?-?-?-?-?-?-?-?-?-?-?-?- 01/23/23 -?-?-?-?-?-?-?-?-?-?-?-?- 36w 3d 150 lb (+30 lb) 32 140 active 104/62 150 lb -?-?-?-?-?-?-?-?-?-?-?-?- 01/30/23 -?-?-?-?-?-?-?-?-?-?-?-?- 37w 3d 149 lb (+29 lb) 32 140 active 110/60 149 lb -?-?-?-?-?-?-?-?-?-?-?-?- 02/05/23 -?-?-?-?-?-?-?-?-?-?-?-?- 38w 2d 149 lb (+29 lb) 34 140 active 100/64 149 lb -?-?-?-?-?-?-?-?-?-?-?-?- 02/14/23 -?-?-?-?-?-?-?-?-?-?-?-?- 39w 4d 150 lb (+30 lb) 39 34 140 active 108/62 150 lb -?-?-?-?-?-?-?-?-?-?-?-?- 02/21/23 -?-?-?-?-?-?-?-?-?-?-?-?- 40w 4d 153 lb (+33 lb) 34 150 active 104/60 153 lb -?-?-?-?-?-?-?-?-?-?-?-?- Notes Visit Date: 02/21/23 Last Updated by: Ella Sagastume CNM Note author: Ella Sagastume CNM/Sarah Odonnell medical records specialist 40.4 wk ROMMEL. Feeling well. Taking PNV. Hydrating well and good appetite Good FM, no LOF, VB or abd pain. She reports she was feeling weak, had a headache, and contractions over the last few days, feeling better today. VE: Cx. posterior, unable to reach cx due to low position of head. Discussed: PTL - LOF, VB, abd pain. Advised to eat small frequent meals, hydrate well with water and stay cool. If she has not delivered by next week, IOL planned, staff to book along with any AP testing next week. PEC - headaches: not resolved with 2 regular strength Tylenol doses, visual disturbances warnings and when to call for further evaluation. Reviewed when to call for any VB, LOF, contractions, Kick counts reviewed and when to call for any decreased FM. Book a 2 visit, notify the office of delivery. Visit Date: 02/14/23 Last Updated by: Ella Sagastume CNM Note author: Ella Sagastume CNM/Sarah Odonnell medical records specialist 39.4 wk ROMMEL. Feeling well. Taking PNV. Hydrating well and good appetite Good FM, no LOF, VB or abd pain. Partner at visit. Having experiencing [place] schumacher. Reports feeling sick (fatigue, acid reflux and nausea) went to ED this week but walked out before given care. Discussed: PTL - LOF, VB, abd pain. Pepcid and B6 sent to pharmacy. Advised to eat small frequent meals and stay cool and hydrated. Contact office if after 40 weeks and if overdue then there will be additional testing. PEC - headaches: not resolved with 2 regular strength Tylenol doses, visual disturbances warnings and when to call for further evaluation. Reviewed when to call for any VB, LOF, contractions, Kick counts reviewed and when to call for any decreased FM. Discussed to call the service here for any emergencies/deliveries to be directed to [facility] RTO in 1 week. Visit Date: 02/05/23 Last Updated by: Ella Sagastume CNM Note author: Ella Sagastume CNM/Sarah Odonnell medical records specialist 38.2 wk ROMMEL. Feeling well. Taking PNV. Hydrating well and good appetite Good FM, no LOF, VB or abd pain. She is here today with her Partner She has no concerns or complaints. Prepped for baby, dscussed packing for the hospital. Discussed: PTL - LOF, VB, abd pain . Advised to eat small frequent meals and stay cool and hydrated. PEC - headaches: not resolved with 2 regular strength Tylenol doses, visual disturbances warnings and when to call for further evaluation. Reviewed when to call for any VB, LOF, contractions, Kick counts reviewed and when to call for any decreased FM. Encouraged patient to sign up for patient portal. Discussed to call the service here for any emergencies/deliveries to be directed to [facility]. US is booked 02/10/23 for growth check. RTO in 1 week. Visit Date: 01/30/23 Last Updated by: Ella Sagastume CNM 37.3 wk ROMMEL. Feeling well. Taking PNV. Hydrating well and good appetite Good FM, no LOF, VB or abd pain. Partner is present during visit. US for growth check not booked yet, plan staff to call and check on the status of appt. Reports having Pawel Schumacher. Discussed: PTL - LOF, VB, abd pain . GBS- Negative-chart copy sent to [facility] today. Informed [place] Schumacher symptoms. If delivers baby, contact office to schedule PPV. Advised to eat small frequent meals and stay cool and hydrated. PEC - headaches: not resolved with 2 regular strength Tylenol doses, visual disturbances warnings and when to call for further evaluation. Reviewed when to call for any VB, LOF, contractions, Kick counts reviewed and when to call for any decreased FM. Encouraged patient to sign up for patient portal. Discussed to call the service here for any emergencies/deliveries to be directed to [facility]. Visit Date: 01/23/23 Last Updated by: Ella Sagastume CNM Note author: Ella Sagastume CNM/Sarah Odonnell medical records specialist 36.3 wk ROMMEL. Feeling well. Taking PNV. Hydrating well and good appetite Good FM, no LOF, VB or abd pain. Prepped at home for baby. Plans to breast feed. Not interested in an epidural. She prefers a natural , may consider something IV. Undecided re: BC pp, reviewed options today-will consider. Advised to pick a Pedi soon, options available. EPDS= 9, she has not seen a therapist, but has support at home. She prefers not to talk about things. Offered/encouraged referral for counseling- declines today. CRISIS information given. SFD, OB growth check at [facility]. GBS, GC/CT panel done today. cx appears LTC. Await results and treat accordingly. Discussed: PTL - LOF, VB, abd pain . Advised to eat small frequent meals and stay cool and hydrated. PEC - headaches: not resolved with 2 regular strength Tylenol doses, visual disturbances warnings and when to call for further evaluation. Reviewed when to call for any VB, LOF, contractions, Kick counts reviewed and when to call for any decreased FM. Encouraged patient to sign up for patient portal. Discussed to call the service here for any emergencies/deliveries to be directed to [facility]. RTO 1 wk/prn. Visit Date: 12/27/22 Last Updated by: Ella Sagastume CNM Note author: Ella Sagastume CNM/Sarah Odonnell medical records specialist 32.4 wk ROMMEL. Feeling well. Taking PNV. Hydrating well and good appetite Good FM, no LOF, VB or abd pain. She is here with her partner Pb. Informed she started a new job at [employer]. Discussed: PTL - LOF, VB, abd pain . Tdap today Prepping at home for the baby. PEC - headaches: not resolved, visual disturbances warnings and when to call for further evaluation to check for pre-eclampsia. Reviewed when to call for any VB, LOF, contractions, Kick counts reviewed and when to call for any decreased FM. Discussed to call the service here for any emergencies/deliveries to be directed to [facility]. RTO 2 wks. Visit Date: 12/12/22 Last Updated by: Ella Sagastume CNM Note author: Ella Sagastume CNM/Sarah Odonnell medical records specialist 30.3wk ROMMEL. Feeling well. Taking PNV. Hydrating well and good appetite Good FM, no LOF, VB or abd pain. Reports she has not been taking Iron pill because it was not making her feel well. Discussed: PTL - LOF, VB, abd pain . US measurements and diagnostics, repeat if indicated. Recommended taking PNV one hr. after food, then iron later separate timeframe. Advised to eat healthy including small frequent meals every 2 hrs and stay hydrated in hot weather. PEC - headaches: not resolved with 2 regular strength Tylenol doses, visual disturbances warnings and when to call for further evaluation. Reviewed when to call for any VB, LOF, contractions, Kick counts reviewed and when to call for any decreased FM. Encouraged patient to sign up for patient portal. Discussed to call the service here for any emergencies/deliveries to be directed to [facility]. Consider Tdap, defers until next visit. Handout given. RTO 2 wks Visit Date: 11/26/22 Last Updated by: Ella Sagastume CNM Note author: Ella Sagastume CNM/Sarah Odonnell medical records specialist 28.1k ROMMEL. Feeling well. Taking PNV and iron. Hydrating well and good appetite Good FM, no LOF, VB or abd pain. Partner in for the visit today. Reports she is supposed to have a meeting with [facility] and her counselor sent an email recently, but missed her appt. time, she has decided to stay with delivery at [facility]. EPDS=11, no on #10, offered ref: for counseling, will possibly consider. Discussed: PTL - LOF, VB, abd pain Advised to eat healthy including small frequent meals every 2 hrs and stay hydrated in hot weather. Lab results; anemia. Varicella non immune- consider vaccine pp. US follow up for growth ordered. PEC - headaches: not resolved with 2 regular strength Tylenol doses, visual disturbances warnings and when to call for further evaluation. Reviewed when to call for any VB, LOF, contractions, Kick counts reviewed and when to call for any decreased FM. Encouraged patient to sign up for patient portal. Discussed to call the service here for any emergencies/deliveries to be directed to [facility]. Consider plans and control options. RTO 2 wks. Visit Date: 10/29/22 Last Updated by: Ella Sagastume CNM Note author: Ella Sagastume CNM/Sarah Odonnell medical records specialist 24.1wk ROMMEL. Feeling well. Taking PNV. Good FM, no LOF, VB or abd pain. She is doing well with no complaints. She is interested in possibly transferring / care for more options such as a birthing center. She is agreeable to do labs soon. Discussed: PTL - LOF, VB, abd pain, regular contractions. Advised to research [facility] for home options. Encouraged patient to sign up for patient portal. PEC - headaches: not resolved with 2 regular strength Tylenol doses, visual disturbances warnings and when to call for further evaluation. Reviewed when to call for any VB, LOF, contractions, Kick counts reviewed and when to call for any decreased FM. Discussed to call the service here for any emergencies/deliveries to be directed to [facility]. Visit Date: 09/24/22 Last Updated by: Ella Sagastume CNM Note author: Ella Sagastume CNM/Sarah Odonnell medical records specialist 19.1wk ROMMEL. Feeling well. Taking PNV. Good FM, no LOF, VB. No PN labs done, has transportation issues, mom helping with rides. Has WIC. Seen in the ED 09/20/22 for lightheadedness and feeling weak. Discussed: PTL - LOF, VB, abd pain, Advised to do labs today and schedule US. Concerned re: weight gain, low appetite at times. Track meal and food intake. Maintain healthy diet and stay hydrates with water. PEC - headaches: not resolved with 2 regular strength Tylenol doses, visual disturbances warnings and when to call for further evaluation. Discussed to call the service here for any emergencies/deliveries to be directed to [facility]. Reviewed when to call for any emergent care. RTO 4wks, FAS ordered Agree's to have labs done today. Visit Date: 08/23/22 Last Updated by: Ella Sagastume CNM Note author: Ella Sagastume CNM/Juany Dempsey medical records specialist 14.4 wk ROMMEL. Taking PNV. Good FM. Denies LOF, VB or abd pain. Doing well with no concerns. Does not have a good appetite due to nausea. Has not picked up her Unisom and Vitamin B6. She stays well hydrated. She has done her First screen labs, records not available yet. Has not done first trimester labs. Her partner, Pb, and mom were present for FHR. Discussed: VB warnings and when to call for further evaluation. PEC - headaches: not resolved with 2 regular strength Tylenol doses, visual disturbances warnings and when to call for further evaluation.? Staying well hydrated, drink 8-10 glasses of water per day. Encouraged to flower buncher or picker Unisom and Vitamin B6 to help prevent nausea. Agrees to do labs tomorrow. RTO in 4 weeks. Visit Date: 08/01/22 Last Updated by: Ella Sagastume CNM The patient agreed to use of a medical records specialist during this encounter. Scribed for ROBERT Wilson by Sarah Odonnell medical records specialist, on at 00:00 am EST. 11.3 wk OB. Taking PNV, BASA qd. Good FM. Denies LOF, VB or abd pain. Good appetite and stays well hydrated. States her nausea is off and on. Denies vaginal itching and irritation. Discussed: PTL-LOF, VB, abd pain, ctx and when to call for further evaluation. Advised to withhold from intimacy momentarily, report any VB B6 vits TID for nausea and Unisom prn Encouraged to contact office if she has any concerns about depression. Advised to obtain her PN labs this week Staying well hydrated, drink 8-10 glasses of water per day. She is agreeable to delivering at [facility]. Will have further discussion at next visit. 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 LMP was last week of April. US 06/25/22 at 6w1d with NAYELI 02/17/23. She had additional US 07/23/22 at 11w0d with NAYELI 02/11/23. She has h/o subchorionic bleed, nausea and fatigue. She was prescribed B6/Unisom but has not picked up from pharmacy yet. Pt has FH of diabetes and early glucose was added to her labs. Pt was advised no sweets or carbs beginning at 2000, night before she plans to have labs done and the same for her breakfast. Will schedule NT US and 1st trimester screen [place] [facility] Pt has allergy to PCN. She had Covid 06/2021 and has been vaccinated x2, no boosters. Pt BMI today is 22.4. She does not know how much she weighed before her and does not know if she has lost or gained weight. Pt was given the folder. We discussed danger signs, pelvic pain especially if unilateral and may be associated with shoulder pain and/or vaginal bleeding. She understands to call if she has either symptom. Pt was advised 27/01 MD coverage and how to reach MD after hours/weekends/holidays. She is aware that delivery will take place at [facility] as well as some testing and where she is to go. We reviewed first trimester education. Pt will schedule OB PE today, labs were ordered. Pt was accompanied by her Mom and her partner, Pb. Of note: we did not discuss domestic violence questions. Pt verbalizes understanding and agrees with plan. No further questions. Exam Const Constitutional General: cooperative, healthy appearing, no acute distress, well developed and alert Orientation/consciousness: oriented to person, oriented to place, oriented to time and patient oriented x3 HENMT Head: normal to inspection Eyes General: appearance normal, both eyes and all related structures Neck Neck: normal visual inspection Thyroid: Thyroid normal Chest Chest palpation & inspection: normal inspection of the chest Breast/axilla inspection: normal inspection of the breasts GI Inspection (GI): normal to inspection Palpation (GI): Soft to palpation General Exam: Yes bladder normal to palpation External Female Exam: normal external appearance and normal appearance of the urethra Urethra: normal appearance of the urethra Speculum exam - vagina: normal appearance of the vagina, normal discharge and other (well healed) Bimanual exam- vagina & uterus: normal bimanual exam, uterine size normal, bladder normal to palpation and normal palpation Bimanual Exam- Adnexa, other: normal adnexae and no masses Skin General skin exam: no rashes or lesions noted Neuro General: Yes oriented to person, Yes oriented to place and Yes oriented to time Cognition (Neuro): normal cognition Extrem General: normal to inspection Psych Appearance: grossly normal Thought process: Normal thought process present Assessment & Plan Assessment & Plan (1) Encounter for visit: Code(s): Z39.2 - Encounter for routine follow-up Medications: Refilled prenat.vits,may,[id number]-[id number] 1 tab PO BEDTIME 90 tabs 4RF Coding Level of Care Code [place] Diagnoses Encounter for visit Z39.2
[2023-04-08 16:17] VITALS: BP 100/64; BMI 22.1
== END 2023-04-09 07:44 | disposition home or self-care (01) ==
LOC: HO.HWS 16:03
PROVIDERS: Visit Provider Advanced Practice Midwife
DX: Z39.2 Encounter for routine postpartum follow-up (principal)
CPT/HCPCS: 59430; S3005

== ENCOUNTER → 2023-04-08 16:03 | Outpatient (BNVA) | payer OTHER, SELFPAY | PROVIDERS: Visit Provider Advanced Practice Midwife ==

== ENCOUNTER 2024-04-13 14:19 | Outpatient (AMB) | payer OTHER, SELFPAY ==
--- NOTE | 2024-04-13 14:23 | MHC.OFFVIS ---
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 Doing well with no concerns. She tries to eat healthy and stays active with exercise. Regular monthly menses. Currently is sexually active. Not using control and is currently not interested. She denies vaginal itching and irritation. STI screening offered; she accepts. Denies family history of breast, ovarian or colon cancer. [facility] Medical History COVID-19 Surgical History No pertinent past surgical history Family History Mother No problems noted. Father No problems noted. 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 Current occupational exposures/hazards: No Sexual orientation: Straight/Heterosexual Female Reproductive History Menstrual Age of Menarche: 11 Duration of menses: 3-5 days Date of last menstrual period: 03/30/24 control method: none Total pregnancies: 1 Full term: 1 Number of Living Children: 1 Review of Systems Const All systems reviewed & are unremarkable except as noted in HPI and below Reports as per HPI Eyes Reports no additional complaints ENT Reports no additional complaints Card Reports no additional complaints Resp Reports no additional complaints GI Reports as per HPI and Reports no additional complaints Reports as per HPI Musc Reports no additional complaints Skin/Breast Reports as per HPI Neuro Reports no additional complaints Psych Reports no additional complaints Endo Reports no additional complaints Edi/Lymph Reports no additional complaints Aller/Immun Reports no additional complaints Physical Exam Vital Signs: Last Vital Signs BP 100/62 04/13/24 14:24 BMI result Body Mass Index 19.7 Const General: cooperative, healthy appearing, no acute distress, well developed and alert Orientation/consciousness: patient oriented x3 HEENT Head: Yes normal to inspection Eyes General: appearance normal, both eyes and all related structures Neck Neck: Yes normal visual inspection Thyroid: Thyroid normal Chest Chest palpation & inspection: normal inspection of the chest and other (no puckering, dimpling, peau de orange, retraction, discharge, masses) Breast/axilla inspection: normal inspection of the breasts Breast/axilla palpation: normal palpation of the breasts Resp Effort & Inspection: normal respiratory effort GI Inspection: Yes normal to inspection Palpation (GI): Soft to palpation Rectal Exam - Female: deferred General: Yes bladder normal to palpation External Female Exam: normal external appearance and normal appearance of the urethra Speculum Exam - Vagina: normal appearance of the vagina, normal palpation and normal vaginal discharge Speculum Exam - Cervix: normal appearance of the cervix, normal palpation and Other cervical findings present (Bled readily with Pap) Bimanual exam- vagina & uterus: normal bimanual exam, normal palpation, uterine size normal, bladder normal to palpation, normal palpation and non-tender Bimanual Exam- Adnexa, other: no masses Skin General skin exam: no rashes or lesions noted Rashes: no rashes Neuro General: patient oriented x3 Cognition (Neuro): normal cognition Extrem General: Yes normal to inspection Psych Attitude: cooperative Thought process: Normal thought process present Results AMB Test Urine AMB Test Urine Negative Last Edit by MARISSA Neff on 04/13/24 15:18 Results Reviewed Results Reviewed: Laboratory Last Values Tst Clinic Negative 04/13/24 15:16 Assessment & Plan Assessment & Plan (1) Encounter for well woman exam with routine gynecological exam: Code(s): Z01.419 - Encounter for gynecological examination (general) (routine) without abnormal findings Category: Medical Plan Discussed: Current recommendations for pap smears per ASCCP guidelines. Pap smear obtained. Breast awareness and periodic breast exams. Maintain a healthy lifestyle including a well balanced diet and routine exercise. Use condoms for STI and prevention. Advised to make a consult if she decides she wants to do control. STD screening blood work ordered. BV panel GC chlamydia completed await results for plan of care. Patient verbalizes understanding and agrees to the plan of care. She was given opportunity to ask questions and all questions were answered to the best of my ability. RTO in one year for annual senior treasury consultant examination. This note is constructed using voice recognition software. While every effort has been made to ensure accuracy, sales and marketing representative errors may have been included. Orders: Orders Syphilis Screen Today Z20.2 - Contact with and (suspected) exposure to infections with a predominantly sexual mode of transmission Hepatitis C Antibody Reflex Today Z20.2 - Contact with and (suspected) exposure to infections with a predominantly sexual mode of transmission PAP rfx HPV E6/E7 and 16 18/45 Today Z01.419 - Encounter for gynecological examination (general) (routine) without abnormal findings HIV Ab/Ag Today Z20.2 - Contact with and (suspected) exposure to infections with a predominantly sexual mode of transmission Hepatitis B Core Antibody Today Z20.2 - Contact with and (suspected) exposure to infections with a predominantly sexual mode of transmission CT NG by PCR Today Z20.2 - Contact with and (suspected) exposure to infections with a predominantly sexual mode of transmission AMB HCG Urine Test Today Z32.02 - Encounter for test, result negative Coding Level of Care Code Est Pt Prev Care 18-39y(36516) Diagnoses Encounter for well woman exam with routine gynecological exam Z01.419
[2024-04-13 14:24] VITALS: BP 100/62; BMI 19.7
== END 2024-04-13 15:03 | disposition home or self-care (01) ==
PROVIDERS: Visit Provider Advanced Practice Midwife
DX: Z32.02 Encounter for pregnancy test, result negative (principal); Z01.419 Encounter for gynecological examination (general) (routine) without abnormal findings
CPT/HCPCS: 99395

== ENCOUNTER 2024-04-13 14:19 | Outpatient (REF) | payer OTHER, SELFPAY | END 2024-04-13 14:20 | disposition home or self-care (01) | LOC: HO.LNP 14:19 | PROVIDERS: Visit Provider Advanced Practice Midwife | DX: Z01.419 Encounter for gynecological examination (general) (routine) without abnormal findings (principal); Z20.2 Contact with and (suspected) exposure to infections with a predominantly sexual mode of transmission; Z32.02 Encounter for pregnancy test, result negative | CPT/HCPCS: 81025; 99395 ==

== ENCOUNTER 2024-04-13 15:16 | Outpatient (REF) | payer OTHER, SELFPAY ==
[2024-04-14 04:25] LABS: Syphilis Screen Nonreactive (Nonreactive)
[2024-04-14 04:36] LABS: HBc Num1 0.09 S/CO (0.00-0.79); HIV AB/AG Nonreactive (Nonreactive); HIV Num 1 0.06 S/CO (0.00-0.99); Hepatitis B Core Antibody Nonreactive (Nonreactive); ~HepC Num1 0.13 S/CO (0.00-0.79); ~Hepatitis C Antibody Nonreactive (Nonreactive)
[2024-04-14 11:18] LABS: CT PCR NOT DETECTED (Not Detect.); NG PCR NOT DETECTED (Not Detect.)
== END 2024-04-13 15:17 | disposition home or self-care (01) ==
LOC: HO.LAB 15:16
PROVIDERS: Visit Provider Advanced Practice Midwife
DX: Z01.419 Encounter for gynecological examination (general) (routine) without abnormal findings (principal); Z20.2 Contact with and (suspected) exposure to infections with a predominantly sexual mode of transmission
CPT/HCPCS: 36415; 86704; 86780; 86803; 87389; 87491; 87591; 87625; 88175

== ENCOUNTER 2024-08-23 21:36 | Emergency (ER) | payer OTHER, SELFPAY ==
[2024-08-23 22:01] VITALS: BP 92/37; PULSE 83; RESP 18; TEMP 36.6; O2SAT 98; BMI 20.4
[2024-08-23 22:26] LABS: MANUAL DIFF FLAG NO
[2024-08-23 22:28] LABS: Appearance Urine Clear; Basophils Percent Auto 0.4 % (0-2); Color Urine Yellow; Eosinophils Absolute Auto 0.1 X10*3/uL (0.0-0.4); Eosinophils Percent Auto 2.4 % (0-4); Glucose Urine UA Negative (Negative); Hematocrit 34.2 % (37.0-47.0); Hemoglobin 11.4 g/dl (12.0-16.0); Imm Gran Abs Auto 0.01 X10*3/uL (0.00-0.03); Imm Gran Pct Auto 0.2 % (0.0-0.4); Leukocyte Esterase Urine Negative (Negative); Lymphocytes Absolute Auto 2.7 X10*3/uL (1.2-4.9); Lymphocytes Percent Auto 49.6 % (20-40); Mean Corpuscular HGB Conc 33.3 g/dl (31.0-35.0); Mean Corpuscular Hemoglobin 27.9 pg (27.0-33.0); Mean Corpuscular Volume 83.8 fL (80.0-98.0); Mean Platelet Volume 12.7 fL (9.4-12.3); Monocytes Absolute Auto 0.5 X10*3/uL (0.1-1.2); Monocytes Percent Auto 9.3 % (2-11); Neutrophils Absolute Auto 2.1 x10*3/uL (2.0-8.3); Neutrophils Percent Auto 38.1 % (45-73); Nitrite Urine Negative (Negative); Platelet Count 202 X10*3/uL (160-400); Red Blood Count 4.08 X10*6/uL (4.20-5.50); Red Cell Distribution Width 14.9 % (11.0-16.0); Specific Gravity - Urine >= 1.030 (1.005-1.025); Urine Blood Negative (Negative); Urine Ketones Negative (Negative); Urine Protein Negative (Neg-Trace); White Blood Count 5.4 X10*3/uL (4.8-10.8)
[2024-08-23 22:38] LABS: Anion Gap 9 (12-20); Blood Urea Nitrogen 19 mg/dL (9-16); Calcium 8.5 mg/dL (8.4-10.2); Carbon Dioxide 22 mmol/L (22-29); Chloride 109 mmol/L (96-108); Creatinine Clr Calc Pharmacy 94.5; Estimated Glomerular Filt Rate > 60; Glucose Random 83 mg/dL (60-115); Potassium 3.4 mmol/L (3.3-5.1); Sodium 137 mmol/L (135-145)
[2024-08-23 22:42] LABS: Urine Pregnancy POSITIVE (NEGATIVE)
[2024-08-23 22:43] LABS: UPreg QC Valid YES
[2024-08-23 23:04] LABS: Influenza A PCR NEGATIVE (Negative); Influenza B PCR NEGATIVE (Negative); Resp Syncy Virus RNA Qual PCR NEGATIVE (Negative); SARS COV2 PCR INHOUSE NEGATIVE (Negative)
[2024-08-24 00:30] VITALS: BP 96/58; PULSE 83; RESP 17; TEMP 36.4; O2SAT 100
--- NOTE | 2024-08-24 02:10 | ED_ITS ---
HPI - General Adult General Chief complaint: General Medical Stated complaint: ? low iron / dizzy Time Seen by Provider: 08/24/24 01:48 Source: patient, RN notes reviewed and old records reviewed Mode of arrival: ambulatory Limitations: no limitations History of Present Illness ED Provider: Jacquelyn CRUZ narrative: 19-year-old female presents for evaluation of general weakness and fatigue. She also complains of dizziness. She reports that her symptoms started 1-2 weeks ago She reports that her symptoms are reminiscent of when she was with her last child who was about 1-year-old She denies any abdominal pain, vaginal bleeding or discharge. She has associated nausea No fevers or chills Related Data Allergies Allergy/AdvReac Type Severity Reaction Status Date / Time penicillin V Allergy Unknown Hives Verified 08/23/24 22:05 Penicillins [PENICILLINS] Allergy Unknown ANAPHYLAXIS Verified 08/23/24 22:05 Review of Systems 2 Constitutional: Constitutional: Denies body ache(s), Denies chills, Denies fever(s), Reports lethargy, Reports malaise and Reports weakness ENT: Reports dizziness Respiratory: Respiratory: Denies cough Gastrointestinal: Gastrointestinal: Denies abdominal pain, Reports nausea and Denies vomiting Genitourinary: Genitourinary: Denies dysuria, Denies pelvic pain and Denies vaginal discharge Musculoskeletal: Musculoskeletal: Denies back pain Integumentary/Breasts: Skin/Breast: Denies rash Neurologic: Reports dizziness and Reports weakness PMFSH Past Medical History Medical History COVID-19 Surgical History No pertinent past surgical history Family History Family History Mother No problems noted. Father No problems noted. Maternal Grandmother Diabetes mellitus Maternal Grandfather Diabetes mellitus Social History Social History Household Members: Family and Children Household Members Other:: mom, daughter Housing: Condominium Are you a primary pet care associate to a significant other at home: No Do you presently have visiting nurse or other home services: No Alcohol intake: never Patient Tobacco Use Status: Never used Tobacco Smoked in Last 30 Days: No Use of substances other than those prescribed or required for medical reasons: No Agree to transfusion: Yes Advance Directives: No Advance Directives Information Provided: No Do you have a plan to hurt others: No Plan Patient : No (pt states she had a scare and took a plan b) 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 Current occupational exposures/hazards: No Sexual orientation: Straight/Heterosexual Physical Exam ED Vital Signs: Vital Signs - 24 hr 08/23/24 22:01 08/24/24 00:30 Temperature 98 F 97.5 F Pulse Rate 83 83 Respiratory Rate 18 17 Blood Pressure 92/37 L 96/58 L Pulse Oximetry 98 100 Oxygen Delivery Method Room Air Room Air BMI result Body Mass Index 20.4 Const General: healthy appearing, comfortable, no acute distress, alert and awake Nutritional Appearance: well nourished Orientation/consciousness: patient oriented x3 HENMT Head: Yes normocephalic and Yes atraumatic Eyes Eyelids: Yes eyelids normal Conjunctivae: conjunctivae normal Sclerae: sclerae normal Corneas: corneas normal Pupils: Equal, round and reactive pupils present EOM: EOMs intact bilaterally Neck Neck: Yes full ROM Resp Effort & Inspection: normal respiratory effort, able to speak in complete sentences and not labored Skin General skin exam: elasticity normal Neuro General: patient oriented x3 Cranial nerves: Yes Equal, round and reactive pupils present and Yes Bilaterally intact EOM present Cognition (Neuro): normal cognition Extrem Other: Moving all extremities well without any obvious deformities Medical Decision Making Medical Decision Making [facility] Narrative: 19-year-old female presents for evaluation of general complaints of weakness, malaise, dizziness and nausea. Patient was slightly hypotensive which appears to be close to her baseline based on her previous blood pressures. She is afebrile, normotensive. She was well-appearing. She has a mild normocytic anemia consistent with her baseline. Given that her MCV is within normal limits, she is not likely to have any significant iron-deficiency. She has no leukocytosis or left shift. Chemistries without concerning abnormality. The patient's urine dipstick was positive for . I did add on an hCG. She has no abdominal pain, vaginal bleeding or discharge. Low suspicion for ectopic . Differential Diagnosis Differential Diagnoses: The differential diagnosis associated with the presentation includes Early Iron-deficiency anemia Dehydration TORREY Influenza Lab Data [facility] Lab Attestation statement: I reviewed the patient's lab results. As above 08/23/24 22:19 08/23/24 22:19 Labs: Lab Results 08/23/24 Range/Units 22:19 WBC 5.4 (4.8-10.8) X10*3/uL RBC 4.08 L (4.20-5.50) X10*6/uL Hgb 11.4 L (12.0-16.0) g/dl Hct 34.2 L (37.0-47.0) % MCV 83.8 (80.0-98.0) fL MCH 27.9 (27.0-33.0) pg MCHC 33.3 (31.0-35.0) g/dl RDW 14.9 (11.0-16.0) % Plt Count 202 D (160-400) X10*3/uL MPV 12.7 H (9.4-12.3) fL Immature Gran % (Auto) 0.2 (0.0-0.4) % Neut % (Auto) 38.1 L (45-73) % Lymph % (Auto) 49.6 H (20-40) % Carroll % (Auto) 9.3 (2-11) % Eos % (Auto) 2.4 (0-4) % Baso % (Auto) 0.4 (0-2) % Lymph # (Auto) 2.7 (1.2-4.9) X10*3/uL [place] # (Auto) 0.5 (0.1-1.2) X10*3/uL Eos # (Auto) 0.1 (0.0-0.4) X10*3/uL Baso # (Auto) 0.0 (0.0-0.2) X10*3/uL Abs Immat Gran (auto) 0.01 (0.00-0.03) X10*3/uL Absolute Neuts (auto) 2.1 (2.0-8.3) x10*3/uL Absolute Nucleated RBC 0.000 (0.0-0.012) X10*3/uL Nucleated RBC % (auto) 0.0 (0.0-0.2) /100WBC Sodium 137 (135-145) mmol/L Potassium 3.4 (3.3-5.1) mmol/L Chloride 109 H (96-108) mmol/L Carbon Dioxide 22 (22-29) mmol/L Anion Gap 9 L (12-20) BUN 19 H (9-16) mg/dL Creatinine 0.71 (0.5-1.4) mg/dL Estim Creat Clear Calc 94.5 Estimated GFR > 60 Random Glucose 83 (60-115) mg/dL Calcium 8.5 (8.4-10.2) mg/dL Urine Color Yellow Urine Appearance Clear Urine pH 6.0 (5.0-9.0) Ur Specific [place] >= 1.030 H (1.005-1.025) Urine Protein Negative (Neg-Trace) mg/dL Urine Glucose (UA) Negative (Negative) mg/dL Urine Ketones Negative (Negative) mg/dL Urine Blood Negative (Negative) Urine Nitrite Negative (Negative) Ur Leukocyte Esterase Negative (Negative) Urine Test POSITIVE H (NEGATIVE) Influenza Type A (PCR) NEGATIVE (Negative) Influenza Type B (PCR) NEGATIVE (Negative) RSV RNA Qual (PCR) NEGATIVE (Negative) SARS-CoV-2 RNA (RT-PCR) NEGATIVE (Negative) Discharge Plan Discharge Clinical Impression: Patient Disposition: Home, Self-Care Instructions: (ED) Additional Instructions: You are . Your hormone today was 624 This indicates that you were very early on in your You could be anywhere from 2-4 weeks but likely closer to 2 or 3 Follow[facility] Return for new or worsening symptoms, especially develop severe abdominal pain, vaginal bleeding Print Language: Congolese
[2024-08-24 02:11] LABS: HCG Quantitative 624 mIU/mL
[2024-08-24 02:27] VITALS: BP 104/69; PULSE 89; RESP 18; TEMP 36.8; O2SAT 100
== END 2024-08-24 02:41 | disposition home or self-care (01) ==
PROVIDERS: Physician Assistant; Emergency Provider Emergency Medicine
DX: R42 Dizziness and giddiness (principal); R53.1 Weakness; R53.83 Other fatigue; R11.0 Nausea; I95.9 Hypotension, unspecified; Z79.899 Other long term (current) drug therapy; Z03.818 Encounter for observation for suspected exposure to other biological agents ruled out
CPT/HCPCS: 0241U; 36415; 80048; 81003; 81025; 84702; 85025; 99283; 99284

== ENCOUNTER 2024-09-30 16:49 | Emergency (ER) | payer OTHER, SELFPAY ==
--- NOTE | ~2024-09-30 | US_ITS ---
CLINICAL HISTORY: termination of 1 mo, heavy bleeding US pelvis transabdominal and transvaginal Comparison: None Findings: Transabdominal scanning performed for overall anatomy. Transvaginal scanning performed for additional detail. Anteverted uterus is 9.1 cm length. Normal myometrium. Endometrium 20 mm thickness. Right ovary 4.1 x 3.9 x 3.1 cm. Left ovary 2.5 x 1.4 x 1.1 cm. Normal color Doppler of both ovaries. There are bilateral thin-walled ovarian almost certainly benign cysts. No free fluid. IMPRESSION: 1. Nonspecific endometrial prominence. Clinical follow-up recommended This document has been electronically signed by: Darius Cooper MD on 09/30/2024 19:16:14
[2024-09-30 16:55] VITALS: BP 110/66; PULSE 104; RESP 16; TEMP 35.9; O2SAT 99; BMI 20.3
--- NOTE | 2024-09-30 16:55 | ED_ITS ---
HPI - General Adult General Chief complaint: Vaginal Bleeding Stated complaint: miscarrage Time Seen by Provider: 09/30/24 18:03 Source: patient, RN notes reviewed and old records reviewed Mode of arrival: ambulatory Limitations: no limitations History of Present Illness ED Provider: Jacquelyn CRUZ narrative: 19-year-old female presents for evaluation of vaginal bleeding. Patient reports that she had an elective on 09/03/2024 at [facility]. She reports that she was only a few weeks and that was her 2nd . She denies any complications with the 1st and she has 1 son at home Patient reports that she was given 1 medication to take on 09/03/2024, she reports that she had some vaginal bleeding for a few days after that that subsided. She reports that she then did not have any vaginal bleeding up until what she felt was her normal menstrual cycle that started on 09/23/2024. It initially seemed like a normal menstrual cycle but then developed heavy bleeding with large clots. She reports feeling lightheaded and dizzy while walking which is what prompted her ER visit today. Related Data Allergies Allergy/AdvReac Type Severity Reaction Status Date / Time penicillin V Allergy Unknown Hives Verified 09/30/24 16:58 Penicillins [PENICILLINS] Allergy Unknown ANAPHYLAXIS Verified 09/30/24 16:58 Review of Systems 2 Constitutional: Constitutional: Denies body ache(s), Denies chills and Denies fever(s) Eyes: Eyes: Denies blurry vision ENT: Denies vertigo and Denies dizziness Cardiovascular: Cardiovascular: Denies chest pain, Reports lightheadedness and Denies dyspnea Respiratory: Respiratory: Denies cough and Denies dyspnea Gastrointestinal: Gastrointestinal: Denies abdominal pain, Denies nausea and Denies vomiting Musculoskeletal: Musculoskeletal: Denies back pain Integumentary/Breasts: Skin/Breast: Denies rash Neurologic: Denies vertigo and Denies dizziness PMFSH Past Medical History Medical History COVID-19 Surgical History No pertinent past surgical history Family History Family History Mother No problems noted. Father No problems noted. Maternal Grandmother Diabetes mellitus Maternal Grandfather Diabetes mellitus Social History Social History Household Members: Family and Children Household Members Other:: mom, daughter Housing: Condominium Are you a primary caregiver assisted living to a significant other at home: No Do you presently have visiting nurse or other home services: No Alcohol intake: never Patient Tobacco Use Status: Never used Tobacco Smoked in Last 30 Days: No Use of substances other than those prescribed or required for medical reasons: No Agree to transfusion: Yes Advance Directives: No Advance Directives Information Provided: No Do you have a plan to hurt others: No Plan Patient : No 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 Current occupational exposures/hazards: No Sexual orientation: Straight/Heterosexual Physical Exam ED Vital Signs: Vital Signs - 24 hr 09/30/24 16:55 09/30/24 19:26 09/30/24 20:14 Temperature 96.7 F L 98.4 F 97.9 F Pulse Rate 104 H 90 101 H Respiratory Rate 16 16 16 Blood Pressure 110/66 93/52 L 85/54 L Pulse Oximetry 99 98 100 Oxygen Delivery Method Room Air Room Air Room Air 09/30/24 21:44 Temperature Pulse Rate Respiratory Rate Blood Pressure 93/52 L Pulse Oximetry Oxygen Delivery Method BMI result Body Mass Index 20.3 Const General: healthy appearing, comfortable, no acute distress, alert and awake Nutritional Appearance: well nourished Orientation/consciousness: patient oriented x3 HENMT Head: Yes normocephalic and Yes atraumatic Eyes Eyelids: Yes eyelids normal Conjunctivae: conjunctivae normal Sclerae: sclerae normal Corneas: corneas normal Pupils: Equal, round and reactive pupils present EOM: EOMs intact bilaterally Neck Neck: Yes full ROM Resp Effort & Inspection: normal respiratory effort, able to speak in complete sentences and not labored GI Inspection: No distended Palpation (GI): Soft to palpation, not firm, nontender, no guarding and not rigid Skin General skin exam: elasticity normal Neuro General: patient oriented x3 Cranial nerves: Yes Equal, round and reactive pupils present and Yes Bilaterally intact EOM present Cognition (Neuro): normal cognition Extrem Other: Moving all extremities well without any obvious deformities Course Course Course Narrative: This is a rapid medical exam performed by Allan Schuster NP: Additional HPI, ROS, PE not included below will be deferred to primary provider. Patient is a 19-year-old female referred by [facility] presenting to the ED with complaint of heavy vaginal bleeding. Had medically induced termination of 1 month ago. States first two days was normal menstrual bleeding, today began passing large clots, has been changing pads 1-2x/hour. Feels dizzy/lightheaded. Did not have repeat u/s to confirm success of termination. Plan: labs, U/S Reevaluation(s) Reevaluation #1: Discussed with Doctor Zamora again, the patient is stable for discharge at this time. Return precautions were given, especially if she develops worsening bleeding, worsening lightheadedness, palpitations, chest pain or shortness of breath. I explained to the patient to return tomorrow afternoon around 12:00 p.m. in the afternoon for repeat H&H and serum hCG testing. We need to see if the hCG is trending down words or upwards. The patient verbalizes that she understands this Time: 22:22 Medical Decision Making Medical Decision Making [facility] Narrative: 19-year-old female presents for evaluation of vaginal bleeding. She had an elective about a month ago today. It is unclear exactly what her hCG level was on the day of termination. On 08/23/2024 it was 624. I am not quite sure why her HCG today is 3785. A pelvic ultrasound was ordered which shows a thickened endometrium but no clear retained products. The patient initially declined to have a pelvic examination performed because she was not comfortable with the male during the exam. I spoke to Dr. Monge who strongly recommended persuade the patient to agree to a pelvic examination to see how extensive her bleeding/hemorrhage is. He recommends rechecking the patient's hemoglobin. The patient is hypotensive, but she reports that she runs hypotensive. The patient's hemoglobin is 10.7, her hemoglobin appears to be around 11 at baseline and was 11.4 on 08/23/2024. Differential Diagnosis Differential Diagnoses: The differential diagnosis associated with the presentation includes Retained products of conception Incomplete Ectopic Early Admission/Observation Consideration of admission/observation: Escalation of care including admission/observation considered Consult Healthcare Provider Management of the patient was discussed with: Company Driver (OBJAVID, Dr Zamora) Lab Data [facility]DM Lab Attestation statement: I reviewed the patient's lab results. As above 09/30/24 22:04 09/30/24 17:34 Labs: Lab Results 09/30/24 09/30/24 Range/Units 17:34 22:04 WBC 7.8 (4.8-10.8) X10*3/uL RBC 3.80 L (4.20-5.50) X10*6/uL Hgb 10.7 L 10.5 L (12.0-16.0) g/dl Hct 31.0 L 30.0 L (37.0-47.0) % MCV 81.6 (80.0-98.0) fL MCH 28.2 (27.0-33.0) pg MCHC 34.5 (31.0-35.0) g/dl RDW 13.5 (11.0-16.0) % Plt Count 223 (160-400) X10*3/uL MPV 12.1 (9.4-12.3) fL Immature Gran % (Auto) 0.1 (0.0-0.4) % Neut % (Auto) 66.9 (45-73) % Lymph % (Auto) 25.6 (20-40) % [place] % (Auto) 5.1 (2-11) % Eos % (Auto) 2.0 (0-4) % Baso % (Auto) 0.3 (0-2) % Lymph # (Auto) 2.0 (1.2-4.9) X10*3/uL [place] # (Auto) 0.4 (0.1-1.2) X10*3/uL Eos # (Auto) 0.2 (0.0-0.4) X10*3/uL Baso # (Auto) 0.0 (0.0-0.2) X10*3/uL Abs Immat Gran (auto) 0.01 (0.00-0.03) X10*3/uL Absolute Neuts (auto) 5.2 (2.0-8.3) x10*3/uL Absolute Nucleated RBC 0.000 (0.0-0.012) X10*3/uL Nucleated RBC % (auto) 0.0 (0.0-0.2) /100WBC PT 12.3 (10.9-12.4) SEC INR 1.1 (0.9-1.1) Sodium 139 (135-145) mmol/L Potassium 3.8 (3.3-5.1) mmol/L Chloride 110 H (96-108) mmol/L Carbon Dioxide 25 (22-29) mmol/L Anion Gap 8 L (12-20) BUN 18 H (9-16) mg/dL Creatinine 0.72 (0.5-1.4) mg/dL Estim Creat Clear Calc 97.8 Estimated GFR > 60 Random Glucose 100 (60-115) mg/dL Calcium 8.5 (8.4-10.2) mg/dL Total Bilirubin 0.8 (0.0-1.0) mg/dL AST 14 (5-31) U/L ALT 8 (0-31) U/L Alkaline Phosphatase 69 (39-117) U/L Total Protein 6.7 (6.5-8.0) g/dL Albumin 3.8 (3.5-5.0) g/dL Beta HCG, Quant 3785 mIU/mL Discharge Plan Discharge Clinical Impression: Abnormal vaginal bleeding Patient Disposition: Home, Self-Care Instructions: Dysfunctional Uterine Bleeding (ED) Additional Instructions: Your hormone was elevated to 3785. This is slightly unusual if your elective was 1 month ago Your blood counts were slightly low, but approximately around where you usually are. It is important that you return tomorrow afternoon for repeat H&H and hCG to see if the hormone is trending down words. Return sooner for new or worsening symptoms You may also follow-up with Dr Zamora Referrals: Stas Zamora MD [Physician] - (Dysfunctional uterine bleeding) Print Language: Malian
[2024-09-30 17:38] LABS: MANUAL DIFF FLAG NO
[2024-09-30 17:43] LABS: Basophils Percent Auto 0.3 % (0-2); Eosinophils Absolute Auto 0.2 X10*3/uL (0.0-0.4); Hemoglobin 10.7 g/dl (12.0-16.0); Imm Gran Abs Auto 0.01 X10*3/uL (0.00-0.03); Imm Gran Pct Auto 0.1 % (0.0-0.4); Lymphocytes Percent Auto 25.6 % (20-40); Mean Corpuscular HGB Conc 34.5 g/dl (31.0-35.0); Mean Corpuscular Hemoglobin 28.2 pg (27.0-33.0); Mean Corpuscular Volume 81.6 fL (80.0-98.0); Mean Platelet Volume 12.1 fL (9.4-12.3); Monocytes Absolute Auto 0.4 X10*3/uL (0.1-1.2); Monocytes Percent Auto 5.1 % (2-11); Neutrophils Absolute Auto 5.2 x10*3/uL (2.0-8.3); Neutrophils Percent Auto 66.9 % (45-73); Platelet Count 223 X10*3/uL (160-400); Red Cell Distribution Width 13.5 % (11.0-16.0); White Blood Count 7.8 X10*3/uL (4.8-10.8)
[2024-09-30 17:50] LABS: INTERNATIONAL NORM RATIO 1.1 (0.9-1.1); Prothrombin Time 12.3 SEC (10.9-12.4)
[2024-09-30 17:59] LABS: Alanine Aminotransferase 8 U/L (0-31); Albumin Level 3.8 g/dL (3.5-5.0); Alkaline Phosphatase 69 U/L (39-117); Anion Gap 8 (12-20); Aspartate Amino Transferase 14 U/L (5-31); Bilirubin Total 0.8 mg/dL (0.0-1.0); Blood Urea Nitrogen 18 mg/dL (9-16); Calcium 8.5 mg/dL (8.4-10.2); Carbon Dioxide 25 mmol/L (22-29); Chloride 110 mmol/L (96-108); Creatinine Clr Calc Pharmacy 97.8; Estimated Glomerular Filt Rate > 60; Glucose Random 100 mg/dL (60-115); HCG Quantitative 3785 mIU/mL; Potassium 3.8 mmol/L (3.3-5.1); Sodium 139 mmol/L (135-145); Total Protein 6.7 g/dL (6.5-8.0)
--- NOTE | 2024-09-30 18:06 | PC.NURSE ---
Pt reporting 3 days of heavy vaginal bleeding with large clots, changing pads/ tampons every 1-2 hours. Reporting lower ABD/ pelvic cramping/ pain. Had miscarriage at end of aug, believes this is her first menstrual period since. Alert and oriented, breathing even and unlabored. No other complaints.
--- NOTE | 2024-09-30 18:07 | PC.NURSE ---
US at bedside at this time.
[2024-09-30 19:26] VITALS: BP 93/52; PULSE 90; RESP 16; TEMP 36.9; O2SAT 98
--- NOTE | 2024-09-30 19:28 | PC.NURSE ---
this rn assumed care of pt @ 1900. veterinary medicine teacher made this rn aware of bp of 93/52 per pt denies dizziness denies any new complaints at this time. states has been told in past visits has low blood pressures gabriela made aware
[2024-09-30 20:14] VITALS: BP 85/54; PULSE 101; RESP 16; TEMP 36.6; O2SAT 100
--- NOTE | 2024-09-30 20:16 | PC.NURSE ---
emergency medcl emt made this rn aware of bp of 85/54 this rn made sherie gabriela aware of bp per gabriela no new orders at this time gabriela awaiting to hear back from dr toro
--- NOTE | 2024-09-30 20:22 | P.CONOB_ITS ---
DIGITAL FORENSIC EXAMINER - CN: HPI Data of Consult Consult date: 09/30/24 Primary Care Provider: Unknown Physician Consult Narrative Narrative: I was consulted on Samson Akbar who is a 19 year old female presented to the emergency room with few days' history of vaginal bleeding. Patient reports that she had an elective medical on 09/03/2024 followed by vaginal bleeding for a few days that subsided afterwards. She reports that she then did not have any vaginal bleeding up until what she felt was her normal menstrual cycle that started on 09/23/2024. It initially seemed like a normal menstrual cycle but then developed heavy bleeding with large clots. She reports feeling lightheaded and dizzy while walking which is what prompted her ER visit today. In the emergency room H&H @17:34 was 10.7/31 Repeat H&H @ 22:04=10.5/30 On 08/23 H&H= 11.4/34.7 HCG today= 3785 hCG on 08/23/2024 was 617 Blood type 0 positive Pelvic ultrasound showed the following: Transabdominal scanning performed for overall anatomy. Transvaginal scanning performed for additional detail. Anteverted uterus is 9.1 cm length. Normal myometrium. Endometrium 20 mm thickness. Normal Right ovary 4.1 x 3.9 x 3.1 cm. Left ovary 2.5 x 1.4 x 1.1 cm. Normal color Doppler of both ovaries. There are bilateral thin-walled ovarian almost certainly benign cysts. No free fluid. cc:: CC: OB PMF Past Medical History Medical History COVID-19 Family History Family History Mother No problems noted. Father No problems noted. Maternal Grandmother Diabetes mellitus Maternal Grandfather Diabetes mellitus Surgical History Surgical History No pertinent past surgical history Social History Social History Household Members: Family and Children Household Members Other:: mom, daughter Housing: Condominium Are you a primary child care centre director to a significant other at home: No Do you presently have visiting nurse or other home services: No Alcohol intake: never Patient Tobacco Use Status: Never used Tobacco Smoked in Last 30 Days: No Use of substances other than those prescribed or required for medical reasons: No Agree to transfusion: Yes Advance Directives: No Advance Directives Information Provided: No Do you have a plan to hurt others: No Plan Patient : No 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 Current occupational exposures/hazards: No Sexual orientation: Straight/Heterosexual Meds Allergies Allergy/AdvReac Type Severity Reaction Status Date / Time penicillin V Allergy Unknown Hives Verified 09/30/24 16:58 Penicillins [PENICILLINS] Allergy Unknown ANAPHYLAXIS Verified 09/30/24 16:58 DIGITAL FORENSIC EXAMINER Physical Exam Vitals Vital signs: Temp Pulse Resp BP Pulse Ox O2 Del Method 97.9 F 101 H 16 85/54 L 100 Room Air 09/30/24 20:14 09/30/24 20:14 09/30/24 20:14 09/30/24 20:14 09/30/24 20:14 09/30/24 20:14 BMI result Body Mass Index 20.3 Additional Comments: Pelvic exam reported by PIPER Morales= no evidence of active vaginal bleeding DIGITAL FORENSIC EXAMINER - Results Labs 09/30/24 17:34 09/30/24 17:34 Labs: Short CBC 09/30/24 Range/Units 17:34 WBC 7.8 (4.8-10.8) X10*3/uL Hgb 10.7 L (12.0-16.0) g/dl Hct 31.0 L (37.0-47.0) % Plt Count 223 (160-400) X10*3/uL BMP 09/30/24 17:34 Sodium 139 Potassium 3.8 Chloride 110 H Carbon Dioxide 25 BUN 18 H Creatinine 0.72 Calcium 8.5 Liver Function 09/30/24 Range/Units 17:34 Total Bilirubin 0.8 (0.0-1.0) mg/dL AST 14 (5-31) U/L ALT 8 (0-31) U/L Alkaline Phosphatase 69 (39-117) U/L Albumin 3.8 (3.5-5.0) g/dL Assessment and Plan (1) Abnormal vaginal bleeding: Status: Acute Since the the medical record is not available around the time of medical termination , no hCG levels, nor ultrasound reports available showing IUP, the differential diagnosis discussed includes but not limited to: AUB post , incomplete , ectopic , others Recommend to PIPER Morales in the emergency room the following: GC/CT to be collected Ensure hemodynamic stability. If the patient is hemodynamically stable, recommend to follow-up in the emergency room in 12 hours for repeat hCG , H&H and re-evaluation. Instructions to be given to patient to come back to emergency room in case of persistence or worsening of heavy vaginal bleeding, pelvic pain, fever above 100.4 If hCG decreases and vaginal bleeding slows down, this would be consistent with complete termination of and heavy menstrual cycle post If hCG increases, repeat ultrasound and rule out ectopic If bleeding and/ or cramping persist, the diagnosis could be incomplete and the patient might need suction D&C. I spent a total of 20 minutes reviewing the chart, communicating with the emergency room provider and documenting in the medical record.
[2024-09-30 21:44] VITALS: BP 93/52
[2024-09-30 22:10] LABS: Hemoglobin 10.5 g/dl (12.0-16.0)
[2024-09-30 22:32] VITALS: BP 102/61; PULSE 100; RESP 16; TEMP 36.9; O2SAT 99
[2024-09-30 22:36] VITALS: BP 102/61; PULSE 100; RESP 16; TEMP 36.9; O2SAT 99
[2024-10-01 09:26] LABS: Bacterial Vaginosis PCR POSITIVE (Negative); Candida Group PCR NOT DETECTED (Not Detect); Candida glab krusei PCR NOT DETECTED (Not Detect); Trichomonas vaginalis PCR NOT DETECTED (Not Detect)
[2024-10-01 10:12] LABS: CT PCR NOT DETECTED (Not Detect.); NG PCR NOT DETECTED (Not Detect.)
== END 2024-09-30 22:39 | disposition home or self-care (01) ==
PROVIDERS: Physician Assistant; Registered Nurse Emergency; Emergency Provider Emergency Medicine
DX: N93.9 Abnormal uterine and vaginal bleeding, unspecified (principal); N76.0 Acute vaginitis
CPT/HCPCS: 36415; 76830; 76856; 80053; 81515; 84702; 85014; 85018; 85025; 85610; 87491; 87591; 99284

== ENCOUNTER → 2024-09-30 16:58 | Outpatient (BNV) | payer OTHER, SELFPAY | PROVIDERS: Visit Provider Specialist | DX: O26.851 Spotting complicating pregnancy, first trimester (principal) | CPT/HCPCS: 76830; 76856 ==

== ENCOUNTER → 2024-09-30 17:38 | Outpatient (BNV) | payer OTHER, SELFPAY | PROVIDERS: Emergency Provider Emergency Medicine; Visit Provider Obstetrics & Gynecology | DX: N93.9 Abnormal uterine and vaginal bleeding, unspecified (principal) | CPT/HCPCS: 99283 ==

== ENCOUNTER 2024-10-01 17:25 | Day surgery (SDC) | payer OTHER, SELFPAY ==
--- NOTE | ~2024-10-01 | US_ITS ---
EXAMINATION: US GUIDANCE DURING INTRAOPERATIVE D&C. CLINICAL INFORMATION: D&C for possible retained products of conception. COMPARISON: 09/30/2024 pelvic ultrasound. TECHNIQUE: Grayscale and color Doppler ultrasound imaging of the pelvis performed transabdominally during procedure. FINDINGS: Transabdominal imaging of the uterus demonstrates no definite retained products of conception. Endometrial thickness measures approximately 2.4 mm. US/US guide intraoperative IMPRESSION: 1. Limited ultrasound imaging during procedure demonstrates no definite recurrent products of conception. Electronically signed by: Raymond Johnson MD 10/04/2024 09:11 AM EDT
[2024-10-01 17:51] VITALS: BP 107/65; PULSE 99; RESP 18; TEMP 37; O2SAT 99; BMI 21.4
--- NOTE | 2024-10-01 17:55 | ED.GENADULT ---
HPI - General Adult General Chief complaint: Recheck/Abnormal Lab/Rx Stated complaint: asked to come back to repeat H&H and hCG Time Seen by Provider: 10/01/24 23:34 Source: patient Mode of arrival: ambulatory Limitations: no limitations History of Present Illness ED Provider: Dr. Zahra Larson HPI narrative: Patient comes to the emergency room for vaginal bleeding. Patient was seen here yesterday for vaginal bleeding. Patient had an elective about a month ago and a few days ago started bleeding heavily. She was evaluated and she was asked to return 12 hours after her last visit for a repeat hemoglobin and hematocrit. Patient states that she is still having vaginal bleeding. Patient denies chest pain or shortness of breath, dizziness, syncope or near-syncope. Related Data Previous Rx's ?Medication ?Instructions ?Recorded metronidazole 500 mg tablet 500 mg PO BID 7 days #14 tabs 10/02/24 Allergies Allergy/AdvReac Type Severity Reaction Status Date / Time penicillin V Allergy Unknown Hives Verified 10/01/24 17:55 Penicillins [PENICILLINS] Allergy Unknown ANAPHYLAXIS Verified 10/01/24 17:55 Review of Systems Review of Systems: Constitutional : No Weight loss, No Fever, No Chills, No Night Sweats, No Fatigue, No Malaise ENT/Mouth : No Hearing loss, No Ear Pain, No Nasal Congestion, No Sinus Pain, No Hoarseness, No sore throat, No Rhinorrhea, No Swallowing Difficulty Eyes: No Eye Pain, No Swelling, No Redness, No Foreign Body, No Discharge, No Vision Changes Cardiovascular : No Chest Pain, No SOB, No Dyspnea on Exertion, No Orthopnea, No Edema, No Palpitations Respiratory : No Cough, No Sputum, No Wheezing, No Smoke Exposure, No Dyspnea Gastrointestinal : No Nausea, No Vomiting, No Diarrhea, No Constipation, No abdominal Pain, No Hematochezia, No Melena Genitourinary : Complaining of ongoing vaginal bleeding and passing blood clots Musculoskeletal : No joint pain, No Myalgias, No Joint Swelling Skin : No Skin Lesions, No rash Neuro : No Weakness, No Numbness, No Paresthesias, No Loss of Consciousness, No Dizziness, No Headache Psych : No Anxiety/Panic, No Depression, No SI/HI/AH/VH, No Social Issues, Heme/Lymph: No Bruising, No Bleeding,No Lymphadenopathy Endocrine : No Polyuria, No Polydipsia, No Temperature Intolerance [facility] Past Medical History Medical History COVID-19 Surgical History No pertinent past surgical history Family History Family History Mother No problems noted. Father No problems noted. Maternal Grandmother Diabetes mellitus Maternal Grandfather Diabetes mellitus Social History Social History Household Members: Family and Children Household Members Other:: mom, daughter Housing: Condominium Are you a primary floor care technician to a significant other at home: No Do you presently have visiting nurse or other home services: No Alcohol intake: never Patient Tobacco Use Status: Never used Tobacco Smoked in Last 30 Days: No Use of substances other than those prescribed or required for medical reasons: No Agree to transfusion: Yes Advance Directives: No Advance Directives Information Provided: No Patient : Yes 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 Current occupational exposures/hazards: No Sexual orientation: Straight/Heterosexual Physical Exam ED Vital Signs: Vital Signs - 24 hr 10/02/24 07:53 10/02/24 09:21 10/02/24 09:26 Temperature 97.9 F Pulse Rate 80 105 H 96 Respiratory Rate 18 16 16 Blood Pressure 105/59 L 87/60 L 93/49 L Pulse Oximetry 99 98 99 Oxygen Delivery Method Room Air Room Air Room Air 10/02/24 09:31 10/02/24 09:36 10/02/24 09:43 Temperature Pulse Rate 93 92 91 Respiratory Rate 16 16 Blood Pressure 83/41 L 87/42 L 94/45 L Pulse Oximetry 100 100 Oxygen Delivery Method Room Air Room Air 10/02/24 09:47 10/02/24 09:58 10/02/24 10:06 Temperature 98.9 F Pulse Rate 86 89 86 Respiratory Rate 16 18 Blood Pressure 89/47 L 87/47 L 92/46 L Pulse Oximetry 100 100 Oxygen Delivery Method Room Air Room Air BMI result Body Mass Index 21.4 Const Other: Appearance: Alert. Oriented X3. No acute distress. Eyes: Pupils equal, round and reactive to light. ENT: Pharynx normal. Neck: Normal inspection. Neck supple. No lymph nodes noted. No crepitus CVS: Normal heart rate and rhythm. Pulses normal. Normal S1 and S2 Respiratory: No respiratory distress. Breath sounds normal. No Wheezing. No rales Abdomen: Soft and nontender. No rigidity. No distention. : There is a large blood clot protruding through the cervical os. There is a small to moderate amount of blood in the vaginal vault. Skin: Skin warm and dry. Normal skin color. Normal skin turgor. Extremities: No lower extremity edema. No Lacerations. No Rash Neuro: Oriented X 3. No motor deficit. No sensory deficit. Moving all extremities. No slurred speech. CN 2 through 12 grossly intact Psych: calm, cooperative, normal affect Course Course Course Narrative: RME, this is a rapid medical exam performed by Daniele Valladares please refer to primary provider for complete H&P- 19-year-old female presents for evaluation of repeat blood work. She was seen here last night for abnormal uterine bleeding. She had an elective a month ago today on 09/03/2024 at [facility]. She was seen here yesterday due to worsening bleeding, her serum hCG was 3785. She has anemia baseline her hemoglobin yesterday was 10.7 and 10.5 on repeat. She had a pelvic exam, she had a large clot removed from her cervical os. She reports that she had no further bleeding upon leaving the hospital last night, but when she woke up around 2 or 3:00 p.m. today she noticed heavy vaginal bleeding again. She also endorses pelvic pain. Ultrasound yesterday showed a thickened endometrium but no retained products Reevaluation(s) Reevaluation #1: 10/03/2024 0743 Zina Bravo PA-C ---> Patient positive for BV. Upon review of Dr. Zamora's notes, he treated the patient for this. Medications Administered Discontinued Medications Generic Name Dose Route Start Last Admin Trade Name Freq PRN Reason Stop Dose Admin Doxycycline Monohydrate 200 mg 10/02/24 07:42 10/02/24 07:51 Doxycycline Monohydrate 100 Mg Capsule PO 10/02/24 07:43 200 mg ONCE ONE Administration Metronidazole 500 mg 10/02/24 00:43 10/02/24 01:13 Metronidazole 500 Mg Tablet PO 10/02/24 00:44 500 mg ONCE ONE Administration Medical Decision Making Medical Decision Making [facility] Narrative: On pelvic exam, I was able to visualize the cervix and there is a large blood clot protruding from the cervical os. I tried to remove as much of the clot as possible. However, even after removing the external part, I can see that there still part of the blood clot in the cervix, but I can not reach it with our instruments. Overall, seems that the bleeding did slow down. Patient's hemoglobin stayed pretty much stable, hemoglobin is 9.8, previously 10.5. HCG is decreasing. Today is 3180, previously 2785 From yesterday's serology test, patient tested positive for bacterial vaginosis. Patient was given 500 mg of P.o. metronidazole. I discussed the patient with Dr. Zamora. we will keep the patient NPO in the emergency room and tomorrow she may need suction D&C if patient has a significant vaginal bleeding overnight, Dr. Zamora needs to be informed otherwise, NPO until tomorrow morning. Sign-out given to my colleague Dr. Hadley Differential Diagnosis Differential Diagnoses: The differential diagnosis associated with the presentation includes ( incomplete , menorrhagia) Admission/Observation Consideration of admission/observation: Escalation of care including admission/observation considered Consult Healthcare Provider Management of the patient was discussed with: Health Care Marketing Manager Lab Data [facility] Lab Attestation statement: I reviewed the patient's lab results. 10/01/24 18:53 10/01/24 18:53 Labs: Lab Results 10/01/24 10/02/24 Range/Units 18:53 07:52 WBC 8.2 (4.8-10.8) X10*3/uL RBC 3.44 L (4.20-5.50) X10*6/uL Hgb 9.8 L (12.0-16.0) g/dl Hct 28.5 L (37.0-47.0) % MCV 82.8 (80.0-98.0) fL MCH 28.5 (27.0-33.0) pg MCHC 34.4 (31.0-35.0) g/dl RDW 13.6 (11.0-16.0) % Plt Count 220 (160-400) X10*3/uL MPV 12.2 (9.4-12.3) fL Immature Gran % (Auto) 0.6 H (0.0-0.4) % Neut % (Auto) 61.1 (45-73) % Lymph % (Auto) 30.8 (20-40) % [place] % (Auto) 6.2 (2-11) % Eos % (Auto) 1.1 (0-4) % Baso % (Auto) 0.2 (0-2) % Lymph # (Auto) 2.5 (1.2-4.9) X10*3/uL [place] # (Auto) 0.5 (0.1-1.2) X10*3/uL Eos # (Auto) 0.1 (0.0-0.4) X10*3/uL Baso # (Auto) 0.0 (0.0-0.2) X10*3/uL Abs Immat Gran (auto) 0.05 H (0.00-0.03) X10*3/uL Absolute Neuts (auto) 5.0 (2.0-8.3) x10*3/uL Absolute Nucleated RBC 0.000 (0.0-0.012) X10*3/uL Nucleated RBC % (auto) 0.0 (0.0-0.2) /100WBC Sodium 137 (135-145) mmol/L Potassium 4.0 (3.3-5.1) mmol/L Chloride 110 H (96-108) mmol/L Carbon Dioxide 24 (22-29) mmol/L Anion Gap 7 L (12-20) BUN 17 H (9-16) mg/dL Creatinine 0.64 (0.5-1.4) mg/dL Estim Creat Clear Calc 104.9 Estimated GFR > 60 Random Glucose 95 (60-115) mg/dL Calcium 8.5 (8.4-10.2) mg/dL Beta HCG, Quant 3180 mIU/mL Chlam trachomat DNA PCR NOT DETECTED (Not Detect.) N.gonorrhoeae DNA (PCR) NOT DETECTED (Not Detect.) T. vaginalis (PCR) NOT DETECTED (Not Detect) Bact vaginosis (PCR) POSITIVE A (Negative) C. krusei/glabrata (PCR) NOT DETECTED (Not Detect) Jocelynn group (PCR) NOT DETECTED (Not Detect) Critical Care Time Critical Care Time Total Critical Care Time: 35 Attestation: I have personally provided critical care time. Time includes review of lab data, radiology results, discussion with consultants, and monitoring for potential decompensation. Intervention performed as documented. Discharge Plan Discharge Clinical Impression: Incomplete Patient Disposition: Still a Patient Discharge Date/Time: 10/02/24 12:54
[2024-10-01 18:57] LABS: MANUAL DIFF FLAG NO
[2024-10-01 19:10] VITALS: BP 102/51; PULSE 97; RESP 22; O2SAT 99
[2024-10-01 19:15] LABS: Basophils Percent Auto 0.2 % (0-2); Eosinophils Absolute Auto 0.1 X10*3/uL (0.0-0.4); Eosinophils Percent Auto 1.1 % (0-4); Hematocrit 28.5 % (37.0-47.0); Hemoglobin 9.8 g/dl (12.0-16.0); Imm Gran Abs Auto 0.05 X10*3/uL (0.00-0.03); Imm Gran Pct Auto 0.6 % (0.0-0.4); Lymphocytes Absolute Auto 2.5 X10*3/uL (1.2-4.9); Lymphocytes Percent Auto 30.8 % (20-40); Mean Corpuscular HGB Conc 34.4 g/dl (31.0-35.0); Mean Corpuscular Hemoglobin 28.5 pg (27.0-33.0); Mean Corpuscular Volume 82.8 fL (80.0-98.0); Mean Platelet Volume 12.2 fL (9.4-12.3); Monocytes Absolute Auto 0.5 X10*3/uL (0.1-1.2); Monocytes Percent Auto 6.2 % (2-11); Neutrophils Percent Auto 61.1 % (45-73); Platelet Count 220 X10*3/uL (160-400); Red Blood Count 3.44 X10*6/uL (4.20-5.50); Red Cell Distribution Width 13.6 % (11.0-16.0); White Blood Count 8.2 X10*3/uL (4.8-10.8)
[2024-10-01 19:17] LABS: Anion Gap 7 (12-20); Blood Urea Nitrogen 17 mg/dL (9-16); Calcium 8.5 mg/dL (8.4-10.2); Carbon Dioxide 24 mmol/L (22-29); Chloride 110 mmol/L (96-108); Creatinine Clr Calc Pharmacy 104.9; Estimated Glomerular Filt Rate > 60; Glucose Random 95 mg/dL (60-115); Sodium 137 mmol/L (135-145)
[2024-10-01 19:18] LABS: HCG Quantitative 3180 mIU/mL
[2024-10-01 23:50] VITALS: BP 98/56; PULSE 91; RESP 16; TEMP 36.9; O2SAT 100
[2024-10-02] VITALS (10 sets, daily range): BP systolic 83–105; BP diastolic 41–60; PULSE 80–105; RESP 16–20; TEMP 36.6–37.2; O2SAT 98–100
--- NOTE | 2024-10-02 00:54 | PM.GYNCN ---
SOCIAL SCIENCES LECTURER - CN: HPI Data of Consult Consult date: 10/02/24 Primary Care Provider: Unknown Physician Consult Narrative Narrative: I was consulted at 00:42 on Samson Akbar who is a 19 year old female presented to the emergency room for repeat H&H , hCG The patient presented to the emergency room on 09/30 with few days' history of vaginal bleeding. Patient reports that she had an elective medical on 09/03/2024 followed by vaginal bleeding for a few days that subsided afterwards. She reports that she then did not have any vaginal bleeding up until what she felt was her normal menstrual cycle that started on 09/23/2024. It initially seemed like a normal menstrual cycle but then developed heavy bleeding with large clots. She reports feeling lightheaded and dizzy while walking which is what prompted her ER visit today. In the emergency room on 09/10 H&H @17:34 was 10.7/31 Repeat H&H @ 22:04=10.5/30 10/01 repeat H&H= 9.8/28.5 On 09/30 HCG = 3785 hCG on 08/23/2024 was 617 Repeat hCG 10/01= 3118 Blood type 0 positive Pelvic ultrasound done in the emergency room on 09/30 showed the following: Transabdominal scanning performed for overall anatomy. Transvaginal scanning performed for additional detail. Anteverted uterus is 9.1 cm length. Normal myometrium. Endometrium 20 mm thickness. Normal Right ovary 4.1 x 3.9 x 3.1 cm. Left ovary 2.5 x 1.4 x 1.1 cm. Normal color Doppler of both ovaries. There are bilateral thin-walled ovarian almost certainly benign cysts. No free fluid. The patient was sent home from the emergency did well till few hours to the presentation but started to have [id number]-gywhmojy vaginal bleeding associated pelvic cramping, no fever or chills cc:: CC: OB PMFSH Past Medical History Medical History COVID-19 Family History Family History Mother No problems noted. Father No problems noted. 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 Current occupational exposures/hazards: No Sexual orientation: Straight/Heterosexual Meds Allergies Allergy/AdvReac Type Severity Reaction Status Date / Time penicillin V Allergy Unknown Hives Verified 10/01/24 17:55 Penicillins [PENICILLINS] Allergy Unknown ANAPHYLAXIS Verified 10/01/24 17:55 SOCIAL SCIENCES LECTURER Physical Exam Vitals Vital signs: Temp Pulse Resp BP Pulse Ox O2 Del Method 98.4 F 91 16 98/56 L 100 Room Air 10/01/24 23:50 10/01/24 23:50 10/01/24 23:50 10/01/24 23:50 10/01/24 23:50 10/01/24 23:50 BMI result Body Mass Index 21.4 Abdomen Auscultation/Inspection/Palpation: Soft, Non-distended and No tenderness Female Genitalia (Pelvic) Bladder/Urethra: Normal meatus Vulva: No lesions Vagina: Nontender Adnexa/Parametria: Adnexal Tenderness: None, Adnexal Mass: None, Parametrial Tenderness: None and Parametrial Mass: None Additional Comments: Minimal blood per vagina, large julien/tissues at the cervical os, No evidence of active vaginal bleeding SOCIAL SCIENCES LECTURER - Results Labs 10/01/24 18:53 10/01/24 18:53 Labs: Short CBC 10/01/24 Range/Units 18:53 WBC 8.2 (4.8-10.8) X10*3/uL Hgb 9.8 L (12.0-16.0) g/dl Hct 28.5 L (37.0-47.0) % Plt Count 220 (160-400) X10*3/uL BMP 10/01/24 18:53 Sodium 137 Potassium 4.0 Chloride 110 H Carbon Dioxide 24 BUN 17 H Creatinine 0.64 Calcium 8.5 Assessment and Plan (1) Incomplete : Status: Acute 1245 a.m. Discussed the case with Dr. Larson th: Since the patient is not having heavy bleeding and there is no evidence of actice vaginal bleeding on pelvic exam, and had a large meal around 9 p.m. will keep the patient NPO, observe overnight, plan to proceed with suction D&C in few hours, if heavy vaginal bleeding occurs at anytime will proceed with suction D&C immediately. 7:30 am Discussed with the patient the clinical scenario this point he towards incomplete although no evidence of retained products of conception on ultrasound but given to continuous vaginal bleeding and pelvic cramping, the options of the treatment discussed with the patient including medical treatment , suction D&C, all pros, cons, risks and benefits were discussed with the patient and the patient the decided to go ahead with Suction D&C. so a more detailed discussion about the procedure was carried on with the patient including the technique, risks including but not limited to : bleeding, infection, uterine perforation, injury to blood vessels, bowels, ureters, bladder, possible need for blood transfusion with all its risks ( HIV, Hep b or C, anaphylaxis reactions), possible need for laparoscopy, laparotomy, or hysterectomy, possible , thromboembolic events, possibility of a negative impact on future fertility because of scar tissue development inside the uterus; alternatives of this option were discussed with the patient including but not limited to, medical termination of or doing nothing. The patient decided to go ahead with Suction D&C and signed the consent. All questions answered, the patient verbalized understanding and agreed with the plan. Doxycycline 200 mg p.o. preop given to the patient. Ultrasound notified. Instructions given the patient to schedule a 2 week postoperative appointment. This note was generated with a voice recognition program. Some errors may have been overlooked during the review of this note. Sometimes these errors may affect the content or meaning of a given sentence. (2) Bacterial vaginosis: Status: Acute Since BV panel was positive for bacterial vaginosis and is associated with a possible increase in the risk of endometritis post suction D&C will treat with metronidazole 500 mg p.o. b.i.d. for 7 days prescription sent to the pharmacy. Instructions given to patient to call in case of pelvic pain, fever and to refrain from unprotected intercourse for 2 weeks
[2024-10-02] MEDS: metroNIDAZOLE 500 MG TABLET PO (01:13)
[2024-10-02] MEDS: Doxycycline Monohydrate 100 MG CAPSULE 200 MG PO (07:51)
--- NOTE | 2024-10-02 08:26 | HO.ANESPROP2 ---
[facility] Active Problems Active Problems: All Active Problems Bacterial vaginosis (Acute) Incomplete (Acute) Encounter for well woman exam with routine gynecological exam (Acute) Anxiety (Acute) Asthma (Acute) Past Medical History Medical History COVID-19 Functional capacity: independent ambulation Patient : Yes Family History Family History Mother No problems noted. Father No problems noted. Maternal Grandmother Diabetes mellitus Maternal Grandfather Diabetes mellitus Family history of problems with anesthesia: No Surgical History Surgical History No pertinent past surgical history History of Problems with Anesthesia: No Social History Social History Household Members: Family and Children Household Members Other:: mom, daughter [facility] Are you a primary healthcare corporate account director to a significant other at home: No Do you presently have visiting nurse or other home services: No Alcohol intake: never Patient Tobacco Use Status: Never used Tobacco Smoked in Last 30 Days: No Use of substances other than those prescribed or required for medical reasons: No Agree to transfusion: Yes Advance Directives: No Advance Directives Information Provided: No Patient : No 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 Current occupational exposures/hazards: No Sexual orientation: Straight/Heterosexual Meds Allergies Allergy/AdvReac Type Severity Reaction Status Date / Time penicillin V Allergy Unknown Hives Verified 10/01/24 17:55 Penicillins [PENICILLINS] Allergy Unknown ANAPHYLAXIS Verified 10/01/24 17:55 Exam Height,Weight and Vital Signs: Height 5 ft 1 in Weight 51.3 kg Last Vital Signs Temp 98.2 F 10/02/24 04:03 Pulse 80 10/02/24 07:53 Resp 18 10/02/24 07:53 BP 105/59 L 10/02/24 07:53 Pulse Ox 99 10/02/24 07:53 O2 Del Method Room Air 10/02/24 07:53 Pertinent Lab Results Pertinent Lab Results: Laboratory Tests 10/01/24 18:53 WBC 8.2 RBC 3.44 L Hgb 9.8 L Hct 28.5 L MCV 82.8 MCH 28.5 MCHC 34.4 RDW 13.6 Plt Count 220 MPV 12.2 Immature Gran % (Auto) 0.6 H Neut % (Auto) 61.1 Lymph % (Auto) 30.8 Edwards % (Auto) 6.2 Eos % (Auto) 1.1 Baso % (Auto) 0.2 Lymph # (Auto) 2.5 Edwards # (Auto) 0.5 Eos # (Auto) 0.1 Baso # (Auto) 0.0 Abs Immat Gran (auto) 0.05 H Absolute Neuts (auto) 5.0 Absolute Nucleated RBC 0.000 Nucleated RBC % (auto) 0.0 Sodium 137 Potassium 4.0 Chloride 110 H Carbon Dioxide 24 Anion Gap 7 L BUN 17 H Creatinine 0.64 Estim Creat Clear Calc 104.9 Estimated GFR > 60 Random Glucose 95 Calcium 8.5 Beta HCG, Quant 3180 Airway Mallampati Class: II TM Dist: >3cm Neck ROM: Full Heart: RRR Lungs: CTA Assessment and Plan Assessment Anesthesia Assessment: Anesthesia Plan Discussed and Chart Reviewed Final Anesthetic Review Family History of Problems with Anesthesia: No History of Problems with Anesthesia: No NPO: Yes ASA Class: I, II and Emergency Final Preanesthetic Review: Meds/Allgs Chart Reviewed, Consent Obtained/Reviewed and Anes Risks/Benef Reviewed Patient Risk: Intermediate Procedure Risk: Low Anesthetic Plan Anesthetic Plan: MAC: Disposition: Standard PACU
--- NOTE | 2024-10-02 08:47 | PC.NURSE ---
pt to OR [id number]
--- NOTE | 2024-10-02 09:05 | P.OP_ITS ---
Operative Note Operative Note Date of Service: 10/02/24 Narrative: Preop diagnosis: Incomplete AB Operation: suction D and C Postop diagnosis: The same EBL: Minimal Anesthesia: MAC Filter Plant Supervisor: None Pathology: Products of conception Procedure: The patient was put in a dorsal distal mid position was scrubbed and draped in the usual sterile fashion. A sterile speculum was inserted inside the patient's vagina the anterior lip of the cervix was grasped with single-tooth tenaculum the cervix was dilated up to 7 mm. Under ultrasonographic guidance flexible 7. Suction tip was introduced inside the patient ran cavity till the fundus was hit then turning the suction 360 degrees around products of conception was sucked out toward the uterine cavity. The suction tip was taken out of the patient uterine cavity sharp curettings was followed in 4 quadrants of the uterus till a gritty feeling was felt. The suction tip was reintroduced under ultrasonographic guidance and intrauterine blood was sucked. The suction tip was taken out. Single-tooth tenaculum was removed hemostasis assured using pressure. The patient tolerated the procedure well and was transferred to the PACU in a stable condition.
--- NOTE | 2024-10-02 09:05 | PM.OP ---
Brief Operative Note Date of Service: 10/02/24 Pre-op diagnosis: Incomplete Ab Post-op diagnosis: same Procedure: Suction D&C Surgeon: Stas Zamora MD Anesthesia: MAC Was an [employer] used for this Procedure?: No Estimated blood loss (mL): 100 Pathology: other (Retained Products of conception) Condition: stable Disposition: PACU
[2024-10-02 12:56] LABS: Bacterial Vaginosis PCR POSITIVE (Negative); Candida Group PCR NOT DETECTED (Not Detect); Candida glab krusei PCR NOT DETECTED (Not Detect); Trichomonas vaginalis PCR NOT DETECTED (Not Detect)
[2024-10-02 13:28] LABS: CT PCR NOT DETECTED (Not Detect.); NG PCR NOT DETECTED (Not Detect.)
== END 2024-10-02 11:18 | disposition home or self-care (01) ==
LOC: HO.ED 10-02 01:24 → HO.SSS 10-02 09:26
PROVIDERS: Physician Assistant; Emergency Provider Emergency Medicine; Visit Provider Obstetrics & Gynecology
PROC: (CPT 59812; principal; 2024-10-02 07:30)
DX: O03.1 Delayed or excessive hemorrhage following incomplete spontaneous abortion (principal); N76.0 Acute vaginitis; J45.909 Unspecified asthma, uncomplicated
CPT/HCPCS: 59812; 36415; 76857; 76998; 80048; 81515; 84702; 85025; 87491; 87591; 88305; 99284; 99285; J1100; J2003; J2250; J2405; J2590; J2704; J3010

== ENCOUNTER → 2024-10-01 19:36 | Outpatient (BNV) | payer OTHER, SELFPAY | PROVIDERS: Emergency Provider Emergency Medicine; Visit Provider Obstetrics & Gynecology | DX: O03.6 Delayed or excessive hemorrhage following complete or unspecified spontaneous abortion (principal); N76.0 Acute vaginitis; B96.89 Other specified bacterial agents as the cause of diseases classified elsewhere | CPT/HCPCS: 59812 ==

== ENCOUNTER → 2024-10-02 08:53 | Outpatient (BNV) | payer OTHER, SELFPAY | PROVIDERS: Emergency Provider Emergency Medicine; Visit Provider Radiology Diagnostic Radiology | DX: O04.6 Delayed or excessive hemorrhage following (induced) termination of pregnancy (principal) | CPT/HCPCS: 76998 ==